=== PATIENT | female | born 1995 | race Caucasian/White ===

== ENCOUNTER 2019-01-16 22:44 | Inpatient (IN) | payer SELFPAY ==
[2019-01-17 01:04] LABS: Absolute Lymphocytes (CBC) 2.1 K/uL (0.7-4.9); Absolute Monocytes 0.9 K/uL (0.1-1.3); Absolute Neutrophil 12.4 K/uL (1.8-8.0); Basophils % 0.3 % (0-1.3); Eosinophils % 0.5 % (0-4.4); Hematocrit 37.2 % (36.0-45.0); Lymphocytes % 13.6 % (15.3-44.8); MPV 8.3 fL (7.6-11.3); RBC Red Blood Cell Count 4.14 M/uL (3.86-4.86)
[2019-01-17] MEDS ORDERED: NA CHLORIDE 0.9% 1,000 ML ONE ×2 (01:09→06:15)
[2019-01-17] MEDS ORDERED: FAMOTIDINE 20 MG/2 ML VIAL IV ONE (01:09)
[2019-01-17 01:11] LABS: ALT/SGPT 12 U/L (12-78); AST/SGOT 12 U/L (15-37); Albumin 3.2 g/dL (3.4-5.0); Alkaline Phosphatase 108 U/L (45-117); BUN Blood Urea Nitrogen 22 mg/dL (7-18); Bicarbonate 28 mmol/L (21-32); Bilirubin Direct 0.1 mg/dL (0-0.2); Bilirubin Total 0.5 mg/dL (0.2-1.0); Glucose Level 78 mg/dL (74-106); Lipase 61 U/L (73-393); Potassium 3.9 mmol/L (3.5-5.1); Protein, Total 8.1 g/dL (6.4-8.2); Sodium Level 136 mmol/L (136-145)
[2019-01-17 03:03] LABS: Urine Blood 2+ (NEG); Urine Glucose TRACE (NEG); Urine Protein 2+ (NEG); Urine Specific Gravity >1.030 (1.005-1.030); Urine pH 5.5 (5.0-7.0)
[2019-01-17 03:37] LABS: Urine Mucus 4+ /HPF (NONE SEEN)
[2019-01-17 03:38] LABS: Urine Bacteria <20 /HPF (<20); Urine Culture Reflex Order REFLEXED
[2019-01-17] MEDS ORDERED: FENTANYL CITR 100 MCG/2 ML ONE (04:27)
--- NOTE | 2019-01-17 05:25 | EDPHYS ---
Physician Documentation [facility] Name: Patti Crawford Age: 23 yrs Sex: Female : 1995 Arrival Date: 01/16/2019 Time: 22:47 Bed 17 Private MD: ED Physician Claudio Schmidt HPI: 01/17 05:17 This 23 yrs old Female presents to ER via Ambulatory with complaints of gs Abdominal Pain - burning sensation. 05:17 The patient presents with abdominal pain in the upper abdomen. Onset: The gs symptoms/episode began/occurred 5 day(s) ago. Associated signs and symptoms: Pertinent positives: nausea and vomiting. Associated signs and symptoms: Pertinent negatives: diarrhea. The symptoms are described as crampy. Modifying factors: The symptoms are alleviated by nothing, the symptoms are aggravated by nothing. Severity of pain: At its worst the pain was severe in the emergency department the pain is unchanged. The patient has not experienced similar symptoms in the past. The patient has not recently seen a physician. 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 - Social history:: Smoking status: Patient uses tobacco products, smokes one-half pack cigarettes per day, smokes one pack cigarettes per day. - Ebola Screening: : Patient negative for fever greater than or equal to 101.5 degrees Fahrenheit, and additional compatible Ebola Virus Disease symptoms. ROS: 01/17 05:17 Constitutional: Negative for fever. gs All other systems are negative. Exam: 05:17 Head/Face: Normocephalic, atraumatic. Eyes: Pupils equal round and reactive to light, gs extra-ocular motions intact. Lids and lashes normal. Conjunctiva and sclera are non-icteric and not injected. Cornea within normal limits. Periorbital areas with no swelling, redness, or edema. ENT: Nares patent. No nasal discharge, no septal abnormalities noted. Tympanic membranes are normal and external auditory canals are clear. Oropharynx with no redness, swelling, or masses, exudates, or evidence of obstruction, uvula midline. Mucous membranes moist. Neck: Trachea midline, no thyromegaly or masses palpated, and no cervical lymphadenopathy. Supple, full range of motion without nuchal rigidity, or vertebral point tenderness. No Meningismus. Chest/axilla: Normal chest wall appearance and motion. Nontender with no deformity. No lesions are appreciated. 05:17 Respiratory: Lungs have equal breath sounds bilaterally, clear to auscultation and percussion. No rales, rhonchi or wheezes noted. No increased work of breathing, no retractions or nasal flaring. Back: No spinal tenderness. No costovertebral tenderness. Full range of motion. Skin: Warm, dry with normal turgor. Normal color with no rashes, no lesions, and no evidence of cellulitis. MS/ Extremity: Pulses equal, no cyanosis. Neurovascular intact. Full, normal range of motion. Neuro: Awake and alert, GCS 15, oriented to person, place, time, and situation. Cranial nerves II-XII grossly intact. Motor strength 5/5 in all extremities. Sensory grossly intact. Cerebellar exam normal. Normal gait. 05:17 Constitutional: The patient appears alert, awake, uncomfortable. 05:17 Cardiovascular: Rate: tachycardic, Rhythm: regular, Pulses: no pulse deficits are appreciated. 05:17 Abdomen/GI: Palpation: moderate abdominal tenderness, in the right upper quadrant, left upper quadrant and right lower quadrant, rebound tenderness, is not appreciated. Vital Signs: 01/16 23:14 BP 108 / 78; Pulse 141; Resp 18; Temp 98.5(TE); Pulse Ox 98% on R/A; Pain 10/10; kl 01/17 00:00 BP 113 / 71; Pulse 106; Resp 18; Pulse Ox 100% on R/A; oe 01:00 BP 115 / 86; Pulse 98; Resp 18; Pulse Ox 100% on R/A; oe 02:00 BP 116 / 70; Pulse 108; Resp 17; Pulse Ox 100% on R/A; oe 03:00 BP 114 / 77; Pulse 115; Resp 18; Pulse Ox 99% ; oe 04:00 BP 115 / 77; Pulse 112; Resp 18; Pulse Ox 100% on R/A; oe 05:00 BP 118 / 65; Pulse 110; Resp 18; Pulse Ox 100% on R/A; oe 06:00 BP 116 / 56; Pulse 105; Resp 16; Pulse Ox 99% on R/A; oe 07:49 BP 110 / 65; Pulse 100; Resp 16; Pulse Ox 99% ; sv MDM: 00:22 Patient medically screened. 05:17 Differential diagnosis: appendicitis, bowel obstruction, gastroesophageal reflux gs disease, non-specific abd pain. Data reviewed: vital signs, nurses notes. Counseling: I had a detailed discussion with the patient and/or guardian regarding: the historical points, exam findings, and any diagnostic results supporting the discharge/admit diagnosis, lab results, radiology results, the need for further work-up and treatment in the hospital. Response to treatment: the patient's symptoms have mildly improved after treatment, and as a result, I will admit patient. 01/17 00:31 Order name: Urine Microscopic Only 01/17 00:31 Order name: Basic Metabolic Panel 01/17 00:31 Order name: CBC with Diff 01/17 00:31 Order name: Hepatic Function 01/17 00:31 Order name: Lipase 01/17 01:06 Order name: CBC with Automated Diff; Complete Time: 02:53 EDUT 01/17 01:12 Order name: Basic Metabolic Panel; Complete Time: 02:53 EDUT 01/17 01:12 Order name: Liver (Hepatic) Function; Complete Time: 02:53 EDUT 01/17 01:12 Order name: Lipase; Complete Time: 02:53 EDUT 01/17 02:36 Order name: Urine Dipstick--Ancillary (enter results) il 01/17 02:36 Order name: Urine --Ancillary (enter results) il 01/17 03:04 Order name: Urine --Ancillary; Complete Time: 03:41 EDUT 01/17 03:04 Order name: Urine Dipstick-Ancillary; Complete Time: 03:41 EDUT 01/17 03:39 Order name: Urine Microscopic Only; Complete Time: 03:41 EDUT 01/17 00:31 Order name: Urine Test (obtain specimen); Complete Time: 03:12 01/17 00:31 Order name: Urine Dipstick-Ancillary (obtain specimen); Complete Time: 03:12 01/17 00:31 Order name: IV Saline Lock; Complete Time: 00:55 01/17 00:31 Order name: Labs collected and sent; Complete Time: 00:56 01/17 00:31 Order name: CT Abd/Pelvis - W/Contrast 01/17 07:21 Order name: Lactate EDMS Administered Medications: 00:50 Drug: Pepcid 20 mg Route: IVP; Site: right antecubital; cc3 01:30 Follow up: Response: No adverse reaction cc3 00:55 Drug: NS 0.9% 1000 ml Route: IV; Rate: 1 bolus; Site: right antecubital; cc3 02:00 Follow up: Response: No adverse reaction; IV Status: Completed infusion; IV Intake: cc3 1000ml 04:20 Drug: fentaNYL (PF) 50 mcg Route: IVP; Site: right antecubital; cc3 04:30 Follow up: Response: No adverse reaction cc3 06:05 Drug: NS 0.9% 1000 ml Route: IV; Rate: 150 ml/hr; Site: right antecubital; cc3 06:30 Follow up: Response: No adverse reaction; IV Status: Infusion continued upon admission cc3 06:07 Drug: cefOXitin 1 grams Route: IVPB; Infused Over: 30 mins; Site: right antecubital; cc3 06:30 Follow up: Response: No adverse reaction; IV Status: Completed infusion cc3 06:13 Not Given (Physician Discretion): fentaNYL (PF) 50 mcg IVP once jr8 06:20 Drug: Zofran 4 mg Route: IVP; Site: right antecubital; cc3 07:16 Follow up: Response: No adverse reaction cc3 06:23 Drug: Demerol 25 mg Route: IVP; Site: right antecubital; cc3 06:30 Follow up: Response: No adverse reaction; Pain is decreased cc3 Disposition: 01/17/19 05:24 Hospitalization ordered by Remy Shields for Inpatient Admission. Preliminary diagnosis is Other and unspecified noninfective gastroenteritis and colitis. - Bed requested for Telemetry/MedSurg (Inpatient). - Status is Inpatient Admission. sv - Condition is Stable. - Problem is new. - Symptoms have improved. UTI on Admission? No Signatures: Dispatcher [employer] EDUT Shanthi Horner RN RN kl Verde, Stephanie, RN RN sv Roszak, Josh, PA PA jr8 Claudio Schmidt MD MD Ginger Herron cc3 Corrections: (The following items were deleted from the chart) 06:34 05:24 Hospitalization Ordered by Remy Shields MD for Inpatient Admission. Preliminary kl diagnosis is Other and unspecified noninfective gastroenteritis and colitis. Bed requested for Telemetry/MedSurg (Inpatient). Status is Inpatient Admission. Condition is Stable. Problem is new. Symptoms have improved. UTI on Admission? No. gs 07:56 06:34 01/17/2019 05:24 Hospitalization Ordered by Remy Shields MD for Inpatient sv Admission. Preliminary diagnosis is Other and unspecified noninfective gastroenteritis and colitis. Bed requested for Telemetry/MedSurg (Inpatient). Status is Inpatient Admission. Condition is Stable. Problem is new. Symptoms have improved. UTI on Admission? No. kl
--- NOTE | 2019-01-17 05:25 | ER ---
Nurse's Notes [facility] Name: Patti Crawford Age: 23 yrs Sex: Female : 1995 Arrival Date: 01/16/2019 Time: 22:47 Bed 17 Private MD: Diagnosis: Other and unspecified noninfective gastroenteritis and colitis Presentation: 01/16 23:08 Presenting complaint: Patient states: right side pain x 5 days advanced center of abdomen accompanied by nausea and vomiting reports unable to tolerate po x 2 days also reports abdominal swelling. Transition of care: patient was not received from another setting of care. Onset of symptoms was January 11, 2019. Risk Assessment: Do you want to hurt yourself or someone else? Patient reports no desire to harm self or others. Initial Sepsis Screen: Does the patient meet any 2 criteria? No. Patient's initial sepsis screen is negative. Care prior to arrival: Medication(s) given: tylenol w/ codeine and vicodin. 23:08 Method Of Arrival: Ambulatory 23:08 Acuity: HEYDI 4 23:08 Acuity: HEYDI 3 01/17 00:09 Initial Sepsis Screen: Does the patient have a suspected source of infection? No. cc3 Patient's initial sepsis screen is negative. Triage Assessment: 01/16 23:13 General: Appears distressed, uncomfortable, Behavior is cooperative. Pain: Complains of pain in abdomen diffusely Pain currently is 10 out of 10 on a pain scale. GI: Reports lower abdominal pain, upper abdominal pain, anorexia, bloating, intolerance of fluids, intolerance of food, nausea, normal bowel habits. 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 - Social history:: Smoking status: Patient uses tobacco products, smokes one-half pack cigarettes per day, smokes one pack cigarettes per day. - Ebola Screening: : Patient negative for fever greater than or equal to 101.5 degrees Fahrenheit, and additional compatible Ebola Virus Disease symptoms. Screenin/22 01:00 Abuse screen: Denies threats or abuse. Denies injuries from another. Nutritional cc3 screening: No deficits noted. Tuberculosis screening: No symptoms or risk factors identified. Fall Risk Ambulatory Aid- None/Bed Rest/Nurse Assist (0 pts). Gait- Normal/Bed Rest/Wheelchair (0 pts) Mental Status- Oriented to own ability (0 pts). Assessment: 00:09 General: see triage assessment. cc3 00:09 GI: Bowel sounds present X 4 quads. Abd is soft Abdomen is tender to palpation X 4 cc3 quads. 01:18 Reassessment: Patient appears in no apparent distress at this time. Patient and/or cc3 family updated on plan of care and expected duration. Pain level reassessed. Patient is alert, oriented x 3, equal unlabored respirations, skin warm/dry/pink. 02:40 Reassessment: Patient appears in no apparent distress at this time. Patient and/or cc3 family updated on plan of care and expected duration. Pain level reassessed. Patient is alert, oriented x 3, equal unlabored respirations, skin warm/dry/pink. Patient came back from CT scan department. 03:18 Reassessment: Patient appears in no apparent distress at this time. Patient and/or cc3 family updated on plan of care and expected duration. Pain level reassessed. Patient is alert, oriented x 3, equal unlabored respirations, skin warm/dry/pink. 04:20 Reassessment: Patient appears in no apparent distress at this time. Patient and/or cc3 family updated on plan of care and expected duration. Pain level reassessed. Patient is alert, oriented x 3, equal unlabored respirations, skin warm/dry/pink. 05:15 Reassessment: Patient appears in no apparent distress at this time. Patient and/or cc3 family updated on plan of care and expected duration. Pain level reassessed. Patient is alert, oriented x 3, equal unlabored respirations, skin warm/dry/pink. 06:17 Reassessment: Patient appears in no apparent distress at this time. Patient and/or cc3 family updated on plan of care and expected duration. Pain level reassessed. Patient is alert, oriented x 3, equal unlabored respirations, skin warm/dry/pink. Vital Signs: 01/16 23:14 BP 108 / 78; Pulse 141; Resp 18; Temp 98.5(TE); Pulse Ox 98% on R/A; Pain 10/10; kl 01/17 00:00 BP 113 / 71; Pulse 106; Resp 18; Pulse Ox 100% on R/A; oe 01:00 BP 115 / 86; Pulse 98; Resp 18; Pulse Ox 100% on R/A; oe 02:00 BP 116 / 70; Pulse 108; Resp 17; Pulse Ox 100% on R/A; oe 03:00 BP 114 / 77; Pulse 115; Resp 18; Pulse Ox 99% ; oe 04:00 BP 115 / 77; Pulse 112; Resp 18; Pulse Ox 100% on R/A; oe 05:00 BP 118 / 65; Pulse 110; Resp 18; Pulse Ox 100% on R/A; oe 06:00 BP 116 / 56; Pulse 105; Resp 16; Pulse Ox 99% on R/A; oe 07:49 BP 110 / 65; Pulse 100; Resp 16; Pulse Ox 99% ; sv ED Course: 01/16 22:47 Patient arrived in ED. am2 23:12 Triage completed. kl 23:41 Claudio Schmidt MD is Attending Physician. 01/17 00:09 Ginger Herron is Primary Nurse. cc3 00:09 Arm band placed on right wrist. Patient notified of wait time. cc3 00:09 Patient has correct armband on for positive identification. Placed in gown. Bed in low cc3 position. Call light in reach. Side rails up X 1. manufacturing engineer supervisor on. Pulse ox on. NIBP on. 01:05 Inserted saline lock: 22 gauge in right antecubital area, using aseptic technique. ag4 02:18 Radiology exam delayed due to test not completed at this time. 02:53 CT completed. Patient tolerated procedure well. Patient moved to CT via stretcher. Patient moved back from CT. 05:24 Remy Shields MD is Hospitalizing Provider. 07:00 Report given to ILDA Chilel. cc3 07:48 No provider procedures requiring assistance completed. Patient admitted, IV remains in sv place. intact. Administered Medications: 00:50 Drug: Pepcid 20 mg Route: IVP; Site: right antecubital; cc3 01:30 Follow up: Response: No adverse reaction cc3 00:55 Drug: NS 0.9% 1000 ml Route: IV; Rate: 1 bolus; Site: right antecubital; cc3 02:00 Follow up: Response: No adverse reaction; IV Status: Completed infusion; IV Intake: cc3 1000ml 04:20 Drug: fentaNYL (PF) 50 mcg Route: IVP; Site: right antecubital; cc3 04:30 Follow up: Response: No adverse reaction cc3 06:05 Drug: NS 0.9% 1000 ml Route: IV; Rate: 150 ml/hr; Site: right antecubital; cc3 06:30 Follow up: Response: No adverse reaction; IV Status: Infusion continued upon admission cc3 06:07 Drug: cefOXitin 1 grams Route: IVPB; Infused Over: 30 mins; Site: right antecubital; cc3 06:30 Follow up: Response: No adverse reaction; IV Status: Completed infusion cc3 06:13 Not Given (Physician Discretion): fentaNYL (PF) 50 mcg IVP once jr8 06:20 Drug: Zofran 4 mg Route: IVP; Site: right antecubital; cc3 07:16 Follow up: Response: No adverse reaction cc3 06:23 Drug: Demerol 25 mg Route: IVP; Site: right antecubital; cc3 06:30 Follow up: Response: No adverse reaction; Pain is decreased cc3 Intake: 02:00 IV: 1000ml; Total: 1000ml. cc3 Outcome: 05:24 Decision to Hospitalize by Provider. 07:48 Admitted to Med/surg accompanied by tech, via wheelchair, room 228, with chart, Report sv called to Stan GONSALES 07:48 Condition: stable 07:48 Instructed on the need for admit. 07:56 Patient left the ED. sv Signatures: Shanthi Horner RN Ranjana Thomas RN RN sv Hagler, Ervin eh Espinosa, Orlando oe Moreno, Amanda am2 Claudio Schmidt MD MD gs Cordel, Charlene cc3 Guzman, Adan ag4 Roszak, Josh PA jr8
--- NOTE | 2019-01-17 06:11 | P.HP ---
Certification for Inpatient Patient admitted to: Inpatient With expected LOS: >2 Midnights Practitioner: I am a practitioner with admitting privileges, knowledge of patient current condition, hospital course, and medical plan of care. Services: Services provided to patient in accordance with Admission requirements found in Title 42 Section 412.3 of the Code of Federal Regulations Patient History Date of Service: 01/17/19 Reason for admission: acute enterities History of Present Illness: Ms Greenberg is a 23 years old woman, with pretty benign past medical history, who start about 6 days ago with diffuse abdominal pain, associated with nausea and vomiting. She denied diarrhea. She has had fever in the last couple of days, but did not measure it. Currently her abdominal pain is periumbilical, 10/10 of intensity, constant. Lab work remarkable for leukocytosis 15.6K, CT abdomen and pelvis, remarkable for gneralized small bowel wall inflammation, consistent with enteritis. Her mesenteric lymph nodes are also inflamed suspected for infection precess. At arrival she was not febrile, but tachycardic. Allergies No Known Drug Allergies Allergy (Unverified 03/30/15 22:07) Unknown No Known Allergies Allergy (Uncoded 09/05/17 21:00) Unknown Home medications list reviewed: Yes - Past Medical/Surgical History Past Medical History: Reviewed- Non-Contributory Past Surgical History: Reviewed- Non-Contributory - Family History Family History: Reviewed- Non-Contributory - Social History Smoking Status: Current every day smoker Counseled patient to stop smoking for: less than 10 minutes Alcohol use: Yes CD- Drugs: Yes Caffeine use: Yes Place of Residence: Home Review of Systems 10-point ROS is otherwise unremarkable Physical Examination - Physical Exam General: Alert, In no apparent distress HEENT: Atraumatic, PERRLA, Mucous membr. moist/pink, EOMI, Sclerae nonicteric Neck: Supple, 2+ carotid pulse no bruit, No LAD, Without JVD or thyroid abnormality Respiratory: Clear to auscultation bilaterally, Normal air movement Cardiovascular: Regular rate/rhythm, Normal S1 S2 Gastrointestinal: Hypoactive, Distended, Tenderness (diffuse tender to palpation ) Musculoskeletal: No tenderness Integumentary: No rashes Neurological: Normal speech, Normal strength at 5/5 x4 extr, Normal tone, Normal affect Lymphatics: No axilla or inguinal lymphadenopathy - Studies Laboratory Data (last 24 hrs) 01/17/19 00:35: WBC 15.6 H, Hgb 12.7, Hct 37.2, Plt Count 415 H 01/17/19 00:35: Sodium 136, Potassium 3.9, BUN 22 H, Creatinine 0.74, Glucose 78 , Total Bilirubin 0.5, AST 12 L, ALT 12, Alkaline Phosphatase 108, Lipase 61 L Assessment and Plan - Problems (Diagnosis) (1) Enteritis Current Visit: Yes Status: Acute (2) UTI (urinary tract infection) Current Visit: Yes Status: Acute Qualifiers: Urinary tract infection type: acute cystitis Hematuria presence: without hematuria Qualified Code(s): N30.00 - Acute cystitis without hematuria - Plan The patient will be admitted to the hospital due to acute enteritis. Her UA was abnormal consistent with UTI as well. Will start empiric treatment with IV cipro and flagyl. Blood cultures in process. - Advance Directives Does patient have a Living Will: No Does patient have a Durable POA for Healthcare: No - Code Status/Comfort Care Code Status Assessed: Yes Code Status: Full Code
[2019-01-17] MEDS ORDERED: CEFOXITIN/SWI 1gm 1 GM/10 ML SYR ONE (06:15)
[2019-01-17] MEDS ORDERED: MEPERIDINE HCL 25 MG/0.5 ML ONE (06:30)
[2019-01-17] MEDS ORDERED: ONDANSETRON 4 MG/2 ML VIAL ONE (06:30)
[2019-01-17] MEDS ORDERED: ACETAMINOPHEN 500 MG TAB PO PRN (08:06)
[2019-01-17] MEDS: NA CHLORIDE 0.9% 1,000 ML IV SCH ×3 (08:06→23:06)
[2019-01-17] MEDS ORDERED: ONDANSETRON 4 MG/2 ML VIAL IV PRN (08:06)
[2019-01-17 08:08] VITALS: BMI 22.4
[2019-01-17] MEDS: ENOXAPARIN 40 MG/0.4 ML SQ SCH (09:00)
[2019-01-17] MEDS: METRONIDAZOLE 500mg IVPB 500 MG/100 ML BAG IV SCH ×2 (09:22→16:17)
[2019-01-17] MEDS: CIPROFLOXACIN 400mg IV 400 MG/200 ML BAG IV SCH ×2 (09:22→20:14)
[2019-01-17] MEDS: MORPHINE 2 MG/ML SYR IV PRN ×3 (09:23→22:05)
--- NOTE | 2019-01-17 16:02 | P.PN ---
Subjective Date of Service: 01/17/19 Primary Care Provider: None Chief Complaint: acute enterities Subjective: Other (Still with abdominal pain but pain improved) Physical Examination - Vital Signs Temperature: 100.3 F Blood Pressure: 104/59 Pulse: 95 Respirations: 17 Pulse Ox (%): 96 - Physical Exam General: Alert, In no apparent distress, Cooperative HEENT: Atraumatic Neck: Supple Respiratory: Clear to auscultation bilaterally, Normal air movement Cardiovascular: Normal pulses, Regular rate/rhythm Gastrointestinal: Hypoactive, Non-distended, No masses, No rebound, No guarding , Tenderness (Tenderness throughout) Musculoskeletal: No erythema, No tenderness, No warmth Integumentary: No tenderness/swelling, No erythema, No warmth, No cyanosis Neurological: Normal speech, Normal strength at 5/5 x4 extr, Normal tone, Normal affect - Studies Laboratory Data (last 24 hrs) 01/17/19 00:35: WBC 15.6 H, Hgb 12.7, Hct 37.2, Plt Count 415 H 01/17/19 00:35: Sodium 136, Potassium 3.9, BUN 22 H, Creatinine 0.74, Glucose 78 , Total Bilirubin 0.5, AST 12 L, ALT 12, Alkaline Phosphatase 108, Lipase 61 L Medications List Reviewed: Yes Assessment & Plan Discharge Plan: Home Plan to discharge in: 48 Hours Physician Review Additional Text: Impression: Nausea, vomiting, abdominal pain with diarrhea secondary to Enteritis complicated with UTI Dehydration Plan: Continue with IV fluids and antibiotic therapy. Will provide clear liquid diet. Will advance diet slowly. Will continue to monitor closely. Serial examinations to continue. Recheck lab in the morning. Blood and urine culture obtained. Time Spent Managing Pts Care (In Minutes): 55
[2019-01-17] MEDS ORDERED: IBUPROFEN 400 MG TAB PO PRN (16:34)
--- NOTE | 2019-01-17 20:40 | RAD REPORT ---
EXAM DESCRIPTION: CT - Abdomen Pelvis W Contrast - 01/17/2019 5:39 am CLINICAL HISTORY: 23-year-old female with right-sided abdominal pain, distended abdomen with nausea COMPARISON: None. TECHNIQUE: Axial CT images of the abdomen and pelvis was performed following the administration of intravenous c ontrast. Sagittal and coronal reconstructed images were then performed. The CT study is performed acc ording to ALARA (as low as reasonably achievable) or ALARA/IMAGE GENTLY, with automatic adjustment of mA and/or kV according to patient size. FINDINGS: Lung bases: The lung bases are clear. There is minimal bibasilar atelectasis and/or fibrosis. Liver: The liver is normal in size and configuration. No focal hepatic abnormalities are identified. Liver attenuation is within normal limits. Spleen: The spleen is normal in size, configuration and attenuation. Gallbladder and bile duct: The gallbladder is well distended and unremarkable. There is no biliary du ctal dilatation. Pancreas: The pancreas is grossly normal in size and configuration. Adrenal Glands: The adrenal glands are normal in size and configuration. Kidneys: The kidneys are normal in size and configuration. There is no evidence of hydronephrosis. Th ere is no evidence of nephrolithiasis. There appear to be a couple of very tiny renal hypodensities p articularly in the right kidney likely representing incidental benign appearing renal cysts. Stomach: The stomach is grossly normal. There is not definite hiatal hernia. Bowel: There appears to be bowel wall thickening involving small bowel loops in the left hemiabdomen and there is inner loop fluid and mesenteric edema. There is a small amount of free fluid in the pelv is. These findings are nonspecific but raise concern for an underlying infectious or inflammatory pro cess. Enteritis could result in this appearance. The colon is normal in caliber and contour and conta ins scattered air and fecal residue. Overall evaluation of the bowel is limited without oral contrast . Appendix: The appendix is not clearly visualized on this examination. There is no CT evidence to sugg est acute appendicitis. Free air: There is no evidence of free air. Free fluid: As described above. There is a small amount of free fluid in the pelvis as well as interl oop small bowel fluid and mesenteric edema. Vasculature: The aorta is normal in caliber and contour. The inferior vena cava is grossly unremarkab le. Lymphadenopathy: There are prominent mesenteric lymph nodes likely reactive inflammatory in nature. Bladder: The bladder is incompletely distended. There appears to be diffuse bladder wall thickening b ut evaluation is limited due to incomplete distention of the bladder. Reproductive: The uterus is grossly within normal limits. An intrauterine device is noted in grossly satisfactory position. Bones: No acute osseous abnormalities are identified. Soft tissues: No focal soft tissue abnormalities are identified. IMPRESSION: 1. There appears to be bowel wall thickening involving small bowel loops in the left hem iabdomen with associated interloop fluid and mesenteric edema. There is also a small amount of free f luid in the pelvis. These findings are nonspecific but raise concern for an underlying infectious or inflammatory process. Enteritis could result in this appearance. 2. Prominent mesenteric lymph nodes likely reactive inflammatory in nature. 3. Other benign incidental findings as described above. Electronically signed by Gwendolyn Parry DO 01/17/2019 4:11 AM EMERGENCY ROOM NURSE Due to temporary technical issues with the PACS/Fluency reporting system, reports are being signed by the in house radiologist as a courtesy to ensure prompt reporting. The interpreting radiologist is f ully responsible for the content of the report.
[2019-01-18] MEDS: METRONIDAZOLE 500mg IVPB 500 MG/100 ML BAG IV SCH ×3 (00:03→17:00)
[2019-01-18] MEDS: MORPHINE 2 MG/ML SYR IV PRN ×5 (02:06→20:53)
[2019-01-18] MEDS: NA CHLORIDE 0.9% 1,000 ML IV SCH ×4 (04:42→23:06)
[2019-01-18 04:50] LABS: Absolute Lymphocytes (CBC) 1.9 K/uL (0.7-4.9); Absolute Monocytes 0.9 K/uL (0.1-1.3); Absolute Neutrophil 8.2 K/uL (1.8-8.0); Basophils % 0.3 % (0-1.3); Eosinophils % 0.9 % (0-4.4); Hematocrit 32.5 % (36.0-45.0); Lymphocytes % 17.2 % (15.3-44.8); MPV 7.7 fL (7.6-11.3); Monocytes % 7.7 % (3.3-12.3); RBC Red Blood Cell Count 3.64 M/uL (3.86-4.86)
[2019-01-18 05:00] LABS: BUN Blood Urea Nitrogen 11 mg/dL (7-18); Bicarbonate 25 mmol/L (21-32); Glucose Level 77 mg/dL (74-106); Magnesium 1.8 mg/dL (1.8-2.4); Potassium 3.4 mmol/L (3.5-5.1); Sodium Level 137 mmol/L (136-145)
[2019-01-18] MEDS: KCL 20 MEQ/100 mL IVPB 20 MEQ/100 ML BAG IV SCH ×2 (05:14→08:00)
[2019-01-18] MEDS: CIPROFLOXACIN 400mg IV 400 MG/200 ML BAG IV SCH ×2 (08:28→20:52)
[2019-01-18] MEDS: ENOXAPARIN 40 MG/0.4 ML SQ SCH (08:28)
--- NOTE | 2019-01-18 10:24 | P.PN ---
Subjective Date of Service: 01/18/19 Primary Care Provider: None Chief Complaint: acute enterities Subjective: Other (Slow improvement noted. Less nausea today. Less pain as well ) Physical Examination - Vital Signs Temperature: 97 F Blood Pressure: 104/52 Pulse: 76 Respirations: 20 Pulse Ox (%): 96 - Physical Exam General: Alert, In no apparent distress, Oriented x3, Cooperative HEENT: Atraumatic Neck: Supple Respiratory: Clear to auscultation bilaterally, Normal air movement Cardiovascular: Normal pulses, Regular rate/rhythm Gastrointestinal: Hypoactive, Non-distended, No masses, No rebound, No guarding , Tenderness (Less pain to the abdomen noted) Musculoskeletal: No erythema, No tenderness, No warmth Integumentary: No tenderness/swelling, No erythema, No warmth, No cyanosis Neurological: Normal speech, Normal strength at 5/5 x4 extr, Normal tone, Normal affect - Studies Medications List Reviewed: Yes Assessment & Plan Discharge Plan: Home Plan to discharge in: 48 Hours Physician Review Additional Text: Impression: Nausea, vomiting, abdominal pain with diarrhea secondary to Enteritis complicated with UTI Dehydration Plan: Patient slightly improved. Continue with IV fluids and antibiotic therapy. Urine culture pending. Blood cultures negative. Will slowly advance her diet. Case discussed with surgery. Encourage ambulation. Encourage incentive spirometer. If improved and tolerating diet later, will advance her diet. Anticipate discharge in the next 24 to 48 hr. Continue to reassess. Time Spent Managing Pts Care (In Minutes): 55
[2019-01-18] MEDS ORDERED: MAGNESIUM SULFATE 1 gm IVPB 1 GM/100 ML BAG IV ONE (12:00)
--- NOTE | 2019-01-18 12:56 | PREOPCON ---
Date of Consultation: 01/18/2019 Reason: Abdominal pain. History Of Present Illness: The patient is a 23-year-old female, who states that for about the last week, she has had diffuse abdominal pain, crampy in nature, associated with nausea and vomiting. No diarrhea, low grade temperature subjectively. No sore throat, runny nose, cough, headaches, or dizzi ness. No chest pain. No blood in her stools. No dysuria or hematuria. Review of Systems: Otherwise unremarkable. Past Medical History: Negative. Past Surgical History: Negative. Allergies: NO ALLERGIES. Social History: She does smoke, was counseled. She drinks alcohol occasionally. Family History: Noncontributory. Physical Examination: Vital Signs: Stable. She is afebrile. General: She is awake, alert, orient x3. Head and Neck: Cranial nerves 2 through 12 grossly within normal limits. No neck masses. No JVD. Throat clear. Neck is supple. Chest: Clear. Heart: S1, S2. Abdomen: Soft, slightly distended. Hypoactive bowel sounds. No tenderness. No rebound, rigidity, or guarding. Extremities: Adequately perfused. Nontender. Neuro: Nonfocal. Laboratory Data: White count on admission was 15.6, currently is 11.3 with a slight left shift. Neelima jaimee revealed she has a little bit of hypokalemia, otherwise essentially unremarkable. Lactic acid and procalcitonin are normal. She had a CT of the abdomen and pelvis, which shows small bowel thick ening involving the small bowel loops in the left santa-abdomen with an associated interloop fluid and mesenteric edema, some small amount of free fluid in the pelvis. The findings are nonspecific, but raise concern for underlying infectious or inflammatory process, enteritis could result in this appea joo, and there is some prominent lymph node secondary to the inflammatory changes and no other sign ificant finding. Assessment: A 23-year-old female with likely gastroenteritis ileus and dehydration, recommendation a nd empiric antibiotics and IV fluids, encourage ambulation, clear liquids diet. She does not have a surgical abdomen, although a GI consultation may be helpful if the patient does not improve soon. We will follow the patient while in the hospital. The patient may also benefit from abdominal x-ray sh ould the distention not improve within the next 24 hours. Please note, the case was discussed with Dr. Resendez. YUDY/ERWIN Voice ID: [id number] Report ID: [id number]
[2019-01-19] MEDS: METRONIDAZOLE 500mg IVPB 500 MG/100 ML BAG IV SCH ×2 (00:49→08:22)
[2019-01-19] MEDS: NA CHLORIDE 0.9% 1,000 ML IV SCH (04:09)
[2019-01-19] MEDS: MORPHINE 2 MG/ML SYR IV PRN ×2 (04:09→09:07)
[2019-01-19 04:21] LABS: Absolute Lymphocytes (CBC) 2.2 K/uL (0.7-4.9); Absolute Monocytes 0.7 K/uL (0.1-1.3); Absolute Neutrophil 5.2 K/uL (1.8-8.0); Basophils % 0.4 % (0-1.3); Eosinophils % 2.4 % (0-4.4); Hematocrit 31.4 % (36.0-45.0); Lymphocytes % 26.8 % (15.3-44.8); MPV 7.9 fL (7.6-11.3); RBC Red Blood Cell Count 3.49 M/uL (3.86-4.86)
[2019-01-19 04:42] LABS: BUN Blood Urea Nitrogen 6 mg/dL (7-18); Bicarbonate 27 mmol/L (21-32); Glucose Level 110 mg/dL (74-106); Magnesium 2.1 mg/dL (1.8-2.4); Potassium 3.8 mmol/L (3.5-5.1); Sodium Level 141 mmol/L (136-145)
[2019-01-19] MEDS ORDERED: KCL 20 MEQ/100 mL IVPB 20 MEQ/100 ML BAG IV SCH (06:00)
[2019-01-19] MEDS: CIPROFLOXACIN 400mg IV 400 MG/200 ML BAG IV SCH (08:22)
[2019-01-19] MEDS: ENOXAPARIN 40 MG/0.4 ML SQ SCH (08:23)
--- NOTE | 2019-01-19 09:04 | P.DS ---
Admission Date: 01/17/19 Discharge Date: 01/19/19 Primary Care Provider: None Disposition: ROUTINE DISCHARGE Discharge Condition: GOOD Reason for Admission: acute enterities Consultations: Surgery-Dr. Moore Procedures: CT scan: COMPARISON: None. TECHNIQUE: Axial CT images of the abdomen and pelvis was performed following the administration of intravenous contrast. Sagittal and coronal reconstructed images were then performed. The CT study is performed according to ALARA (as low as reasonably achievable) or ALARA/IMAGE GENTLY, with automatic adjustment of mA and/or kV according to patient size. FINDINGS: Lung bases: The lung bases are clear. There is minimal bibasilar atelectasis and /or fibrosis. Liver: The liver is normal in size and configuration. No focal hepatic abnormalities are identified. Liver attenuation is within normal limits. Spleen: The spleen is normal in size, configuration and attenuation. Gallbladder and bile duct: The gallbladder is well distended and unremarkable. There is no biliary ductal dilatation. Pancreas: The pancreas is grossly normal in size and configuration. Adrenal Glands: The adrenal glands are normal in size and configuration. Kidneys: The kidneys are normal in size and configuration. There is no evidence of hydronephrosis. There is no evidence of nephrolithiasis. There appear to be a couple of very tiny renal hypodensities particularly in the right kidney likely representing incidental benign appearing renal cysts. Stomach: The stomach is grossly normal. There is not definite hiatal hernia. Bowel: There appears to be bowel wall thickening involving small bowel loops in the left hemiabdomen and there is inner loop fluid and mesenteric edema. There is a small amount of free fluid in the pelvis. These findings are nonspecific but raise concern for an underlying infectious or inflammatory process. Enteritis could result in this appearance. The colon is normal in caliber and contour and contains scattered air and fecal residue. Overall evaluation of the bowel is limited without oral contrast. Appendix: The appendix is not clearly visualized on this examination. There is no CT evidence to suggest acute appendicitis. Free air: There is no evidence of free air. Free fluid: As described above. There is a small amount of free fluid in the pelvis as well as interloop small bowel fluid and mesenteric edema. Vasculature: The aorta is normal in caliber and contour. The inferior vena cava is grossly unremarkable. Lymphadenopathy: There are prominent mesenteric lymph nodes likely reactive inflammatory in nature. Bladder: The bladder is incompletely distended. There appears to be diffuse bladder wall thickening but evaluation is limited due to incomplete distention of the bladder. Reproductive: The uterus is grossly within normal limits. An intrauterine device is noted in grossly satisfactory position. Bones: No acute osseous abnormalities are identified. Soft tissues: No focal soft tissue abnormalities are identified. IMPRESSION: 1. There appears to be bowel wall thickening involving small bowel loops in the left hemiabdomen with associated interloop fluid and mesenteric edema. There is also a small amount of free fluid in the pelvis. These findings are nonspecific but raise concern for an underlying infectious or inflammatory process. Enteritis could result in this appearance. 2. Prominent mesenteric lymph nodes likely reactive inflammatory in nature. 3. Other benign incidental findings as described above. Medical Problem List: Nausea, vomiting, abdominal pain with diarrhea secondary to Enteritis complicated with UTI Dehydration Brief History of Present Illness: 23-year-old female presented to emergency room with nausea, vomiting and right upper quadrant pain. Patient also reported some diarrhea. Patient was seen and evaluated in the emergency room. CT scan revealed enteritis. She also had a possible UTI. Patient was admitted for treatment. Hospital Course: Patient presented with nausea, vomiting, diarrhea and right upper quadrant pain secondary to enteritis. Patient was given IV antibiotic therapy and fluids. Patient seen evaluated by surgery. No surgical intervention was required. Patient did well in the course of her stay. At discharge she is without any significant abdominal pain. At discharge she will continue with Cipro 500 mg 1 pill twice daily and Flagyl 500 mg 3 times a day for 7 days. Patient will also be provided tramadol 50 mg 1 pill 3 times a day as needed for pain. Recommend to establish care and follow up with a PCP. Patient may benefit with GI evaluation in the near future to further evaluate. Education on enteritis and UTI prevention will be provided. Vital Signs/Physical Exam: Temp Pulse Resp BP Pulse Ox 98.7 F 94 H 20 121/62 97 01/19/19 04:00 01/19/19 04:00 01/19/19 04:00 01/19/19 04:00 01/19/19 04:00 General: Alert, In no apparent distress, Oriented x3, Cooperative HEENT: Atraumatic Neck: Supple Respiratory: Clear to auscultation bilaterally, Normal air movement Cardiovascular: Normal pulses, Regular rate/rhythm Gastrointestinal: Normal bowel sounds, Soft and benign, Non-distended, No tenderness, No masses, No rebound, No guarding Musculoskeletal: No contractures, No erythema, No tenderness, No warmth Integumentary: No tenderness/swelling, No erythema, No warmth, No cyanosis Neurological: Normal speech, Normal strength at 5/5 x4 extr, Normal tone, Normal affect Laboratory Data at Discharge: WBC 8.4 K/uL (4.3-10.9) D 01/19/19 03:47 Hgb 10.8 g/dL (12.0-15.0) L 01/19/19 03:47 Hct 31.4 % (36.0-45.0) L 01/19/19 03:47 Plt Count 442 K/uL (152-406) H 01/19/19 03:47 Sodium 141 mmol/L (136-145) 01/19/19 03:47 Potassium 3.8 mmol/L (3.5-5.1) 01/19/19 03:47 BUN 6 mg/dL (7-18) L 01/19/19 03:47 Creatinine 0.52 mg/dL (0.55-1.3) L 01/19/19 03:47 Glucose 110 mg/dL (74-106) H 01/19/19 03:47 Magnesium 2.1 mg/dL (1.8-2.4) 01/19/19 03:47 Total Bilirubin 0.5 mg/dL (0.2-1.0) 01/17/19 00:35 AST 12 U/L (15-37) L 01/17/19 00:35 ALT 12 U/L (12-78) 01/17/19 00:35 Alkaline Phosphatase 108 U/L (45-117) 01/17/19 00:35 Lipase 61 U/L (73-393) L 01/17/19 00:35 Home Medications: Ciprofloxacin HCl [Cipro 500 MG Tablet] 500 mg PO BID #14 tab 01/19/19 Tramadol HCl [Ultram] 50 mg PO TID PRN #10 tablet 01/19/19 metroNIDAZOLE [Flagyl] 500 mg PO Q8H #21 tablet 01/19/19 New Medications: Ciprofloxacin HCl [Cipro 500 MG Tablet] 500 mg PO BID #14 tab metroNIDAZOLE [Flagyl] 500 mg PO Q8H #21 tablet Tramadol HCl [Ultram] 50 mg PO TID PRN #10 tablet PRN Reason: Pain Scale 2-4 (Mild) Patient Discharge Instructions: 1. Patient will need to establish care to follow up this hospitalization. 2. Patient presented with nausea, vomiting, diarrhea and right upper quadrant pain secondary to enteritis. Patient was given IV antibiotic therapy and fluids. Patient seen evaluated by surgery. No surgical intervention was required. Patient did well in the course of her stay. At discharge she is without any significant abdominal pain. At discharge she will continue with Cipro 500 mg 1 pill twice daily and Flagyl 500 mg 3 times a day for 7 days. Patient will also be provided tramadol 50 mg 1 pill 3 times a day as needed for pain. Recommend to establish care and follow up with a PCP. Patient may benefit with GI evaluation in the near future to further evaluate. Education on enteritis and UTI prevention will be provided. Diet: GI soft diet Activity: Ad tommy Time spent managing pt's care (in minutes): 55
[2019-01-19 10:25] VITALS: O2SAT 96
--- NOTE | 2019-01-19 11:39 | PN ---
Date of Progress Note: 01/19/2019 Subjective: The patient is awake, alert, tolerating a regular diet. Complaining of pain, but it is much better. Objective: Vital signs: Stable. She is afebrile. Abdomen: Benign. Laboratory Data: White count is normal now. There is no left shift. Assessment: Likely gastroenteritis. Recommendations: The patient cleared from surgical standpoint to be discharged home on Cipro and Fla gyl. She needs to follow up with GI doctor as needed. /ERWIN Voice ID: [id number] Report ID: [id number]
[2019-01-19 13:58] VITALS: BP 103/54; TEMP 98.2
== END 2019-01-19 15:45 | disposition home or self-care (01) | DRG 392 ==
LOC: ER 22:44 → ERHOLD 01-17 06:02 → 2ND 01-17 07:48
PROVIDERS: ADMIT Internal Medicine; ATTEND Family Medicine
DX: K52.9 Noninfective gastroenteritis and colitis, unspecified (principal); N30.00 Acute cystitis without hematuria; E86.0 Dehydration; E87.6 Hypokalemia; F17.200 Nicotine dependence, unspecified, uncomplicated
CPT/HCPCS: 36415; 74177; 80048; 80076; 81003; 81015; 81025; 83605; 83690; 83735; 84132; 84145; 85025; 87040; 87086; 87088; 96361; 96365; 96375; 99285; J0744; J1650; J2175; J2270; J2405; J3010; J3475; J7030; Q9967

== ENCOUNTER 2019-01-28 19:37 | Inpatient (IN) | payer SELFPAY ==
[2019-01-28 20:23] LABS: Urine Glucose NEGATIVE (NEG); Urine Specific Gravity >1.030 (1.005-1.030)
[2019-01-28 20:24] LABS: Urine Blood TRACE (NEG); Urine Protein 2+ (NEG)
[2019-01-28 20:30] LABS: Urine Bacteria 20-50 /HPF (<20); Urine Culture Reflex Order REFLEXED; Urine Mucus HEAVY /HPF (NONE SEEN); Urine RBC <5 /HPF (NONE SEEN)
[2019-01-28] MEDS ORDERED: NA CHLORIDE 0.9% 1,000 ML ONE ×2 (20:40→22:07)
[2019-01-28 21:01] LABS: Absolute Lymphocytes (CBC) 2.7 K/uL (0.7-4.9); Absolute Monocytes 0.8 K/uL (0.1-1.3); Absolute Neutrophil 13.2 K/uL (1.8-8.0); Basophils % 0.5 % (0-1.3); Eosinophils % 0.7 % (0-4.4); Hematocrit 47.8 % (36.0-45.0); Monocytes % 4.6 % (3.3-12.3); RBC Red Blood Cell Count 5.27 M/uL (3.86-4.86)
[2019-01-28 21:18] LABS: Albumin 3.9 g/dL (3.4-5.0); Bilirubin Direct 0.1 mg/dL (0-0.2); Bilirubin Total 0.4 mg/dL (0.2-1.0); Protein, Total 8.7 g/dL (6.4-8.2)
[2019-01-28 21:45] LABS: Platelet Estimate INCR; Platelets, Giant NOTED
[2019-01-28 21:46] LABS: Blood Morphology Comment NOT SEEN (NOT SEEN)
[2019-01-28] MEDS ORDERED: FENTANYL CITR 100 MCG/2 ML ONE (21:47)
--- NOTE | 2019-01-28 22:50 | EDPHYS ---
Physician Documentation [facility] Name: Patti Crawford Age: 23 yrs Sex: Female : 1995 Arrival Date: 01/28/2019 Time: 19:42 Bed 15 Private MD: ED Physician Roque Matta HPI: 01/28 22:42 This 23 yrs old Female presents to ER via Ambulatory with complaints of shirlene Abdominal Pain. 22:42 The patient presents with abdominal pain in the upper abdomen, in the lower abdomen. shirlene Onset: The symptoms/episode began/occurred 2 day(s) ago. The patient presents to the emergency department with nausea, vomiting, abdominal pain, of the right upper quadrant, left upper quadrant, right lower quadrant and left lower quadrant. Onset: The symptoms/episode began/occurred 2 day(s) ago. Possible causes: unknown. The symptoms are aggravated by movement, pressure, food , The symptoms are alleviated by remaining still. The symptoms do not radiate. MARKETING COORDINATOR: 19:51 LMP N/A - control method lp1 Historical: - Allergies: 19:52 No Known Allergies; lp1 - Home Meds: 19:52 Tramadol Oral [Active]; lp1 - PMHx: 19:52 None; lp1 - PSHx: 19:52 None; lp1 - Immunization history:: Adult Immunizations up to date. - Social history:: Smoking status: Patient uses tobacco products, denies chronic smoking, but will smoke occasionally. - Ebola Screening: : No symptoms or risks identified at this time. - Family history:: not pertinent. ROS: 22:42 Constitutional: Negative for fever, chills, and weight loss, Eyes: Negative for injury, shirlene pain, redness, and discharge, ENT: Negative for injury, pain, and discharge, Neck: Negative for injury, pain, and swelling, Cardiovascular: Negative for chest pain, palpitations, and edema, Respiratory: Negative for shortness of breath, cough, wheezing, and pleuritic chest pain, Back: Negative for injury and pain, : Negative for injury, bleeding, discharge, and swelling, MS/Extremity: Negative for injury and deformity, Skin: Negative for injury, rash, and discoloration, Neuro: Negative for headache, weakness, numbness, tingling, and seizure, Psych: Negative for depression, anxiety, suicide ideation, homicidal ideation, and hallucinations, Allergy/Immunology: Negative for hives, rash, and allergies, Endocrine: Negative for neck swelling, polydipsia, polyuria, polyphagia, and marked weight changes, Hematologic/Lymphatic: Negative for swollen nodes, abnormal bleeding, and unusual bruising. 22:42 Abdomen/GI: Positive for abdominal pain, nausea and vomiting, abdominal cramps, abdominal distension, of the right upper quadrant, left upper quadrant, right lower quadrant and left lower quadrant. Exam: 22:42 Constitutional: This is a well developed, well nourished patient who is awake, alert, shirlene and in no acute distress. Head/Face: Normocephalic, atraumatic. Eyes: Pupils equal round and reactive to light, extra-ocular motions intact. Lids and lashes normal. Conjunctiva and sclera are non-icteric and not injected. Cornea within normal limits. Periorbital areas with no swelling, redness, or edema. ENT: Nares patent. No nasal discharge, no septal abnormalities noted. Tympanic membranes are normal and external auditory canals are clear. Oropharynx with no redness, swelling, or masses, exudates, or evidence of obstruction, uvula midline. Mucous membranes moist. Neck: Trachea midline, no thyromegaly or masses palpated, and no cervical lymphadenopathy. Supple, full range of motion without nuchal rigidity, or vertebral point tenderness. No Meningismus. Chest/axilla: Normal chest wall appearance and motion. Nontender with no deformity. No lesions are appreciated. Respiratory: Lungs have equal breath sounds bilaterally, clear to auscultation and percussion. No rales, rhonchi or wheezes noted. No increased work of breathing, no retractions or nasal flaring. Back: No spinal tenderness. No costovertebral tenderness. Full range of motion. Female : Normal external genitalia. Skin: Warm, dry with normal turgor. Normal color with no rashes, no lesions, and no evidence of cellulitis. MS/ Extremity: Pulses equal, no cyanosis. Neurovascular intact. Full, normal range of motion. Neuro: Awake and alert, GCS 15, oriented to person, place, time, and situation. Cranial nerves II-XII grossly intact. Motor strength 5/5 in all extremities. Sensory grossly intact. Cerebellar exam normal. Normal gait. Psych: Awake, alert, with orientation to person, place and time. Behavior, mood, and affect are within normal limits. 22:42 Cardiovascular: Rate: tachycardic, Rhythm: regular, Pulses: Pulses are 4+ in bilateral radial, brachial, femoral, popliteal, posterior tibial and and dorsalis pedis arteries.. Heart sounds: normal, Edema: is not appreciated. Vital Signs: 19:51 BP 106 / 74; Pulse 121; Resp 16; Temp 98.1(O); Pulse Ox 100% on R/A; Weight 63.5 kg; lp1 Height 5 ft. 5 in. (165.10 cm); Pain 10/10; 20:30 BP 105 / 86; Pulse 81; Resp 19 S; Pulse Ox 100% on R/A; cc3 21:15 BP 114 / 79; Pulse 92; Resp 18 S; Pulse Ox 100% on R/A; cc3 22:45 BP 102 / 75; Pulse 80; Resp 18 S; Pulse Ox 100% on R/A; cc3 23:07 BP 105 / 74; Pulse 83; Resp 18 S; Pulse Ox 100% on R/A; cc3 01/29 00:30 BP 115 / 77; Pulse 87; Resp 18 S; Pulse Ox 98% on R/A; cc3 01/28 19:51 Body Mass Index 23.30 (63.50 kg, 165.10 cm) lp1 MDM: 01/28 21:15 Patient medically screened. 22:45 Data reviewed: vital signs, nurses notes, lab test result(s), EKG, radiologic studies, shirlene CT scan, plain films. 01/28 20:07 Order name: Urine Microscopic Only; Complete Time: 21:14 [facility] 01/28 20:07 Order name: Urine Culture [facility] 01/28 20:14 Order name: Urine Dipstick--Ancillary (enter results) [facility] 01/28 20:14 Order name: Urine --Ancillary (enter results) [facility] 01/28 20:19 Order name: Basic Metabolic Panel; Complete Time: 21:23 01/28 20:19 Order name: CBC with Diff; Complete Time: 22:47 01/28 20:19 Order name: Hepatic Function; Complete Time: 21:23 01/28 20:19 Order name: Lipase; Complete Time: 21:23 01/28 21:36 Order name: CT Abd/Pelvis - W/Contrast 01/28 21:36 Order name: Manual Differential; Complete Time: 22:47 [facility] 01/28 22:46 Order name: Chest Single View XRAY [facility] 01/28 20:19 Order name: IV Saline Lock; Complete Time: 21:02 01/28 20:19 Order name: Labs collected and sent; Complete Time: 21:02 Administered Medications: 20:45 Drug: NS 0.9% 1000 ml Route: IV; Rate: 1 bolus; Site: right antecubital; cc3 22:30 Follow up: Response: No adverse reaction; IV Status: Completed infusion; IV Intake: cc3 1000ml 21:35 Drug: fentaNYL (PF) 50 mcg Route: IVP; Site: right antecubital; cc3 22:00 Follow up: Response: No adverse reaction cc3 22:40 Drug: NS 0.9% 1000 ml Route: IV; Rate: 125 ml/hr; Site: left antecubital; cc3 01/29 00:30 Follow up: Response: No adverse reaction; IV Status: Infusion continued upon admission cc3 01/28 23:10 Drug: morphine 4 mg Route: IVP; Site: left antecubital; cc3 23:30 Follow up: Response: No adverse reaction; Pain is decreased cc3 23:13 Drug: Zofran 4 mg Route: IVP; Site: left antecubital; cc3 23:30 Follow up: Response: No adverse reaction; Nausea is decreased cc3 23:18 Drug: Pepcid 20 mg Route: IVP; Site: left antecubital; cc3 01/29 00:00 Follow up: Response: No adverse reaction; Pain is decreased cc3 01/28 23:22 Drug: Flagyl 500 mg Volume: 100 ml; Route: IVPB; Rate: 200 ml/hr; Infused Over: 30 cc3 mins; Site: left antecubital; 23:45 Follow up: Response: No adverse reaction; IV Status: Completed infusion; IV Intake: cc3 100ml 23:46 Drug: Cipro 400 mg Volume: 200 ml; Route: IVPB; Infused Over: 60 mins; Site: left cc3 antecubital; 23:50 Follow up: Response: No adverse reaction; IV Status: Infusion continued upon admission cc3 Disposition: 01/28/19 22:49 Hospitalization ordered by Remy Shields for Inpatient Admission. Preliminary diagnosis are Abdominal tenderness, Other and unspecified intestinal obstruction - SBO, Elevated white blood cell count, Vomiting. - Bed requested for Telemetry/MedSurg (Inpatient). - Status is Inpatient Admission. cc3 - Condition is Fair. - Problem is new. - Symptoms have improved. UTI on Admission? No Signatures: Dispatcher [employer] EDSD Bernie Brandt RN RN Roque Matta MD MD cha Pena, Laura, RN RN [facility] Claudio Schmidt MD MD Ginger Herron cc3 Corrections: (The following items were deleted from the chart) 20:14 20:07 TEST, SERUM+SC.LAB.BRZ ordered. [facility] 23:35 22:49 Hospitalization Ordered by Remy Shields MD for Inpatient Admission. Preliminary diagnosis is Abdominal tenderness; Other and unspecified intestinal obstruction - SBO; Elevated white blood cell count; Vomiting. Bed requested for Telemetry/MedSurg (Inpatient). Status is Inpatient Admission. Condition is Fair. Problem is new. Symptoms have improved. UTI on Admission? No. [facility] 01/29 00:07 01/28 22:46 NG Tube ordered. [facility] cc3 01/29 00:42 01/28 23:35 01/28/2019 22:49 Hospitalization Ordered by Remy Shields MD for Inpatient cc3 Admission. Preliminary diagnosis is Abdominal tenderness; Other and unspecified intestinal obstruction - SBO; Elevated white blood cell count; Vomiting. Bed requested for Telemetry/MedSurg (Inpatient). Status is Inpatient Admission. Condition is Fair. Problem is new. Symptoms have improved. UTI on Admission? No. mw
--- NOTE | 2019-01-28 22:50 | ER ---
Nurse's Notes [facility] Emergency Department Name: Patti Crawford Age: 23 yrs Sex: Female : 1995 Arrival Date: 01/28/2019 Time: 19:42 Bed 15 Private MD: Diagnosis: Abdominal tenderness;Other and unspecified intestinal obstruction-SBO;Elevated white blood cell count;Vomiting Presentation: 01/28 19:50 Presenting complaint: Patient states: Abdominal pain that began yesterday, worse today; lp1 "I was here a couple weeks ago and they said I have an infection of my intestines"; States nausea at this time. Transition of care: patient was not received from another setting of care. Onset of symptoms was January 28, 2019. Risk Assessment: Do you want to hurt yourself or someone else? Patient reports no desire to harm self or others. Note Patient crying, restless during triage. Care prior to arrival: None. 19:50 Method Of Arrival: Ambulatory lp1 19:50 Acuity: HEYDI 3 lp1 19:52 Initial Sepsis Screen: Does the patient meet any 2 criteria? No. Patient's initial lp1 sepsis screen is negative. Does the patient have a suspected source of infection? No. Patient's initial sepsis screen is negative. Triage Assessment: 20:05 General: Appears in no apparent distress. uncomfortable, Behavior is calm, cooperative. cc3 Pain: Complains of pain in left lower quadrant and right lower quadrant and left upper quadrant and right upper quadrant Quality of pain is described as aching, crampy. EENT: No signs and/or symptoms were reported regarding the EENT system. Neuro: Level of Consciousness is awake, alert, obeys commands, Oriented to person, place, time, situation, Appropriate for age. Cardiovascular: Patient's skin is warm and dry. Respiratory: Airway is patent Respiratory effort is even, unlabored, Respiratory pattern is regular, symmetrical. GI: Abdomen is flat, non-distended. : No signs and/or symptoms were reported regarding the genitourinary system. Derm: No signs and/or symptoms reported regarding the dermatologic system. Musculoskeletal: Circulation, motion, and sensation intact. Range of motion: intact in all extremities. HEALTH CARE RECRUITER: 19:51 LMP N/A - control method lp1 Historical: - Allergies: 19:52 No Known Allergies; lp1 - Home Meds: 19:52 Tramadol Oral [Active]; lp1 - PMHx: 19:52 None; lp1 - PSHx: 19:52 None; lp1 - Immunization history:: Adult Immunizations up to date. - Social history:: Smoking status: Patient uses tobacco products, denies chronic smoking, but will smoke occasionally. - Ebola Screening: : No symptoms or risks identified at this time. - Family history:: not pertinent. Screenin:05 Abuse screen: Denies threats or abuse. Denies injuries from another. Nutritional cc3 screening: No deficits noted. Tuberculosis screening: No symptoms or risk factors identified. Fall Risk Ambulatory Aid- None/Bed Rest/Nurse Assist (0 pts). Gait- Normal/Bed Rest/Wheelchair (0 pts) Mental Status- Oriented to own ability (0 pts). Assessment: 20:05 GI: Bowel sounds diminished in left lower quadrant and right lower quadrant and left cc3 upper quadrant and right upper quadrant Abd is soft Abdomen is tender to palpation X 4 quads. 21:18 Reassessment: Patient appears in no apparent distress at this time. Patient and/or cc3 family updated on plan of care and expected duration. Pain level reassessed. Patient is alert, oriented x 3, equal unlabored respirations, skin warm/dry/pink. 22:25 Reassessment: Patient appears in no apparent distress at this time. Patient and/or cc3 family updated on plan of care and expected duration. Pain level reassessed. Patient is alert, oriented x 3, equal unlabored respirations, skin warm/dry/pink. 23:45 Reassessment: Patient was ordered for an NGT to be in place. While it was being put in, cc3 the patient started shouting and wanting for it to be removed right away and so removed as per patient's demand refusal. Charge nurse Gem and Dr. Matta informed. 01/29 00:20 Reassessment: Patient appears in no apparent distress at this time. Patient and/or cc3 family updated on plan of care and expected duration. Pain level reassessed. Patient is alert, oriented x 3, equal unlabored respirations, skin warm/dry/pink. Room available in 422, report called and handed over to ILDA Kuo for continuity of care and management. 00:40 Reassessment: Patient left ER for admission vitally stable by wheelchair escorted by ED cc3 malika Goff. Vital Signs: 01/28 19:51 BP 106 / 74; Pulse 121; Resp 16; Temp 98.1(O); Pulse Ox 100% on R/A; Weight 63.5 kg; lp1 Height 5 ft. 5 in. (165.10 cm); Pain 10/10; 20:30 BP 105 / 86; Pulse 81; Resp 19 S; Pulse Ox 100% on R/A; cc3 21:15 BP 114 / 79; Pulse 92; Resp 18 S; Pulse Ox 100% on R/A; cc3 22:45 BP 102 / 75; Pulse 80; Resp 18 S; Pulse Ox 100% on R/A; cc3 23:07 BP 105 / 74; Pulse 83; Resp 18 S; Pulse Ox 100% on R/A; cc3 01/29 00:30 BP 115 / 77; Pulse 87; Resp 18 S; Pulse Ox 98% on R/A; cc3 01/28 19:51 Body Mass Index 23.30 (63.50 kg, 165.10 cm) lp1 ED Course: 01/28 19:42 Patient arrived in ED. es 19:51 Triage completed. lp1 19:51 Arm band placed on. lp1 19:59 Claudio Schmidt MD is Attending Physician. 20:02 Ginger Herron is Primary Nurse. cc3 20:05 Patient has correct armband on for positive identification. Placed in gown. Bed in low cc3 position. Call light in reach. Side rails up X 1. credit risk review officer on. Pulse ox on. NIBP on. 20:45 Inserted saline lock: 20 gauge in right antecubital area, using aseptic technique. cc3 Blood collected. 21:[address] nj 21:49 CT completed. Patient tolerated procedure well. Patient moved back from CT. nj 22:01 CT Abd/Pelvis - W/Contrast In Process Unspecified. EDMS 22:12 Attending Physician role handed off by Claudio Schmidt MD shirlene 22:12 Roque Matta MD is Attending Physician. shirlene 22:20 IV discontinued, intact, bleeding controlled, No redness/swelling at site. Pressure cc3 dressing applied. 22:30 Inserted saline lock: 20 gauge in left antecubital area, using aseptic technique. cc3 inserted by ILDA Ornelas. 22:48 Remy Shields MD is Hospitalizing Provider. [facility] 22:58 Chest Single View XRAY In Process Unspecified. EDMS 01/29 00:40 No provider procedures requiring assistance completed. Patient admitted, IV remains in cc3 place. Administered Medications: 01/28 20:45 Drug: NS 0.9% 1000 ml Route: IV; Rate: 1 bolus; Site: right antecubital; cc3 22:30 Follow up: Response: No adverse reaction; IV Status: Completed infusion; IV Intake: cc3 1000ml 21:35 Drug: fentaNYL (PF) 50 mcg Route: IVP; Site: right antecubital; cc3 22:00 Follow up: Response: No adverse reaction cc3 22:40 Drug: NS 0.9% 1000 ml Route: IV; Rate: 125 ml/hr; Site: left antecubital; cc3 01/29 00:30 Follow up: Response: No adverse reaction; IV Status: Infusion continued upon admission cc3 01/28 23:10 Drug: morphine 4 mg Route: IVP; Site: left antecubital; cc3 23:30 Follow up: Response: No adverse reaction; Pain is decreased cc3 23:13 Drug: Zofran 4 mg Route: IVP; Site: left antecubital; cc3 23:30 Follow up: Response: No adverse reaction; Nausea is decreased cc3 23:18 Drug: Pepcid 20 mg Route: IVP; Site: left antecubital; cc3 01/29 00:00 Follow up: Response: No adverse reaction; Pain is decreased cc3 01/28 23:22 Drug: Flagyl 500 mg Volume: 100 ml; Route: IVPB; Rate: 200 ml/hr; Infused Over: 30 cc3 mins; Site: left antecubital; 23:45 Follow up: Response: No adverse reaction; IV Status: Completed infusion; IV Intake: cc3 100ml 23:46 Drug: Cipro 400 mg Volume: 200 ml; Route: IVPB; Infused Over: 60 mins; Site: left cc3 antecubital; 23:50 Follow up: Response: No adverse reaction; IV Status: Infusion continued upon admission cc3 Intake: 22:30 IV: 1000ml; Total: 1000ml. cc3 23:45 IV: 100ml; Total: 1100ml. cc3 Outcome: 22:49 Decision to Hospitalize by Provider. shirlene 03 00:40 Admitted to Tele accompanied by tech, via wheelchair, room 422, with chart, Report cc3 called to ILDA Kuo Condition: stable Instructed on the need for admit, Demonstrated understanding of instructions. 00:42 Patient left the ED. cc3 Signatures: Dispatcher [employer] Roque Cedillo MD MD cha Salyer, eBrnie Mckenna RN RN lp1 Sebas Hernandez Gregory, MD MD gs Cordel, Charlene cc3 Corrections: (The following items were deleted from the chart) 00:06 03/ 23:45 Reassessment: Patient was ordered for an NGT to be in place. When it was cc3 put in, the patient started shouting and wanting for it to be removed right away and so removed as per patient's demand. Charge nurse Gem and Dr. Matta informed. cc3
[2019-01-28] MEDS ORDERED: ONDANSETRON 4 MG/2 ML VIAL ONE (23:22)
[2019-01-28] MEDS ORDERED: MORPHINE 4 MG/ML SYR ONE (23:22)
[2019-01-28] MEDS ORDERED: FAMOTIDINE 20 MG/2 ML VIAL IV ONE (23:23)
[2019-01-28] MEDS ORDERED: CIPROFLOXACIN 400mg IV 400 MG/200 ML BAG IV ONE (23:23)
[2019-01-28] MEDS ORDERED: METRONIDAZOLE 500mg IVPB 500 MG/100 ML BAG IV ONE (23:23)
[2019-01-29 00:55] VITALS: O2SAT 100
[2019-01-29] MEDS ORDERED: ACETAMINOPHEN 500 MG TAB PO PRN (01:03)
[2019-01-29] MEDS: METRONIDAZOLE 500mg IVPB 500 MG/100 ML BAG IV SCH ×3 (01:03→17:03)
[2019-01-29] MEDS: NA CHLORIDE 0.9% 1,000 ML IV SCH ×3 (01:03→21:09)
[2019-01-29 01:35] VITALS: BMI 21.5
[2019-01-29] MEDS: KETOROLAC 30 MG/ML INJ IV PRN ×4 (04:16→22:50)
[2019-01-29 04:26] LABS: Absolute Lymphocytes (CBC) 2.6 K/uL (0.7-4.9); Absolute Monocytes 0.7 K/uL (0.1-1.3); Absolute Neutrophil 6.2 K/uL (1.8-8.0); Basophils % 0.6 % (0-1.3); Eosinophils % 1.1 % (0-4.4); Hematocrit 40.6 % (36.0-45.0); Lymphocytes % 26.9 % (15.3-44.8); MPV 8.1 fL (7.6-11.3); Monocytes % 7.3 % (3.3-12.3)
--- NOTE | 2019-01-29 04:37 | P.HP ---
Certification for Inpatient Patient admitted to: Inpatient With expected LOS: >2 Midnights Practitioner: I am a practitioner with admitting privileges, knowledge of patient current condition, hospital course, and medical plan of care. Services: Services provided to patient in accordance with Admission requirements found in Title 42 Section 412.3 of the Code of Federal Regulations Patient History Date of Service: 01/28/19 Reason for admission: Enteritis History of Present Illness: Ms Crawford is a 23 years old woman who was recently admitted to the hospital due to enteritis 2 weeks ago, she was discharged with oral antibiotics. She was doing well, until 2 days ago when she start again with upper abdominal pain, associated with nausea and vomiting. She denied fever or chills. She symptoms were similar to previous admission. Lab work shows leukocytosis, 16.9K, UA abnormal consistent with UTI. CT abd/pelvis shows signs of enteritis, concern for SBO vs ileus. The patient remain afebrile in ED. Allergies No Known Drug Allergies Allergy (Verified 01/17/19 08:09) Unknown Home Medications: Tramadol HCl [Ultram] 50 mg PO TID PRN #10 tablet 01/19/19 - Past Medical/Surgical History Has patient received pneumonia vaccine in the past: No Diabetic: No -: intestinal infection (approximately a week ago.) Past Surgical History: Reviewed- Non-Contributory - Family History Mother Notes: patient states no medical history Father Notes: patient states no medical history - Social History Smoking Status: Current some day smoker Counseled patient to stop smoking for: less than 10 minutes Alcohol use: No CD- Drugs: Yes Caffeine use: Yes Place of Residence: Home Review of Systems 10-point ROS is otherwise unremarkable Physical Examination - Vital Signs Temperature: 99.7 F Blood Pressure: 105/56 Pulse: 97 Respirations: 14 Pulse Ox (%): 99 - Physical Exam General: Alert, Mild distress (due to abdominal pain) HEENT: Atraumatic, PERRLA, Mucous membr. moist/pink, EOMI, Sclerae nonicteric Neck: Supple, 2+ carotid pulse no bruit, No LAD, Without JVD or thyroid abnormality Respiratory: Clear to auscultation bilaterally, Normal air movement Cardiovascular: Regular rate/rhythm, Normal S1 S2 Gastrointestinal: Normal bowel sounds, Tenderness (bilateral upper quadrant and epigastric area.) Musculoskeletal: No tenderness Integumentary: No rashes Neurological: Normal speech, Normal strength at 5/5 x4 extr, Normal tone, Normal affect Lymphatics: No axilla or inguinal lymphadenopathy - Studies Laboratory Data (last 24 hrs) 01/28/19 20:45: WBC 16.9 H D, Hgb 15.9 H D, Hct 47.8 H D, Plt Count 716 H D 01/28/19 20:45: Sodium 140, Potassium 4.0, BUN 19 H, Creatinine 0.99, Glucose 96 , Total Bilirubin 0.4, AST 18, ALT 19, Alkaline Phosphatase 100, Lipase 99 Assessment and Plan - Problems (Diagnosis) (1) SBO (small bowel obstruction) Current Visit: Yes Status: Acute (2) Enteritis Current Visit: No Status: Acute (3) UTI (urinary tract infection) Current Visit: No Status: Acute Qualifiers: Urinary tract infection type: acute cystitis Hematuria presence: without hematuria Qualified Code(s): N30.00 - Acute cystitis without hematuria - Plan Will admit the patient due to enteritis, SBO vs ileus and UTI. Will keep the patient NPO, start empiric treatment with IV Cipro and Flagyl, consult Surgery and GI team. - Advance Directives Does patient have a Living Will: No Does patient have a Durable POA for Healthcare: No - Code Status/Comfort Care Code Status Assessed: Yes Code Status: Full Code
[2019-01-29 04:40] LABS: BUN Blood Urea Nitrogen 16 mg/dL (7-18); Bicarbonate 26 mmol/L (21-32); Glucose Level 83 mg/dL (74-106); Potassium 3.7 mmol/L (3.5-5.1); Sodium Level 141 mmol/L (136-145)
[2019-01-29] MEDS ORDERED: INFLUENZA VACCINE (for 3y+) 0.5 ML DOSE IMVAC ONE (08:00)
--- NOTE | 2019-01-29 08:21 | RAD REPORT ---
EXAM DESCRIPTION: RAD - Chest Single View - 01/28/2019 10:58 pm CLINICAL HISTORY: ABDOMINAL DISTENTION Chest pain. COMPARISON: No comparisons FINDINGS: Portable technique limits examination quality. The lungs are grossly clear. Vague nipple shadows suspected bilaterally. The heart is normal in size. No displaced fractures. IMPRESSION: No acute intrathoracic process suspected.
[2019-01-29] MEDS ORDERED: KCL 20 MEQ/100 mL IVPB 20 MEQ/100 ML BAG IV SCH (09:00)
[2019-01-29] MEDS: CIPROFLOXACIN 400mg IV 400 MG/200 ML BAG IV SCH ×2 (09:01→21:08)
--- NOTE | 2019-01-29 12:06 | RAD REPORT ---
EXAM DESCRIPTION: CT Abdomen and Pelvis With Intravenous Contrast CLINICAL HISTORY: The patient is 23 years old and is Female; ABD PAIN TECHNIQUE: Axial computed tomography images of the abdomen and pelvis with intravenous contrast. S agittal and coronal reformatted images were created and reviewed. This CT exam was performed using one or more of the following dose reduction techniques: automated exposure control, adjustment of t he mA and/or kV according to patient size, and/or use of iterative reconstruction technique. COMPARISON: CT abdomen and pelvis with IV contrast dated January 17, 2019. FINDINGS: LUNG BASES: Lung bases are clear. HEART: Visualized heart is unremarkable. ABDOMEN: LIVER: Unremarkable. No mass. GALLBLADDER AND BILE DUCTS: Unremarkable. No calcified stones. No ductal dilation. PANCREAS: Unremarkable. No mass. No ductal dilation. SPLEEN: Unremarkable. No splenomegaly. ADRENALS: Unremarkable. No mass. KIDNEYS AND URETERS: Unremarkable. No solid mass. No hydronephrosis. STOMACH AND BOWEL: Distention of multiple small bowel loops with air-fluid levels seen in the lowe r abdomen. Also noted is wall thickening of the jejunum with surrounding stranding. PELVIS: APPENDIX: Gas-filled appendix is seen. BLADDER: Unremarkable. No mass. REPRODUCTIVE: Unremarkable as visualized. ABDOMEN and PELVIS: INTRAPERITONEAL SPACE: Moderate amount of lower abdominal and pelvic fluid. Finding is increased f rom prior exam. No free air. BONES/JOINTS: No acute fracture. No dislocation. SOFT TISSUES: Unremarkable. VASCULATURE: Unremarkable. No abdominal aortic aneurysm. LYMPH NODES: Unremarkable. No enlarged lymph nodes. TUBES, LINES AND DEVICES: Incompletely characterized heterogenous enlargement of the uterus with d emonstration of intrauterine contraceptive device. IMPRESSION: 1. Distention of small bowel loops with air-fluid level concerning for partial small b owel obstruction or small bowel ileus. The terminal ileum is decompressed. No free abdominal air. 2. Wall thickening of the jejunum with surrounding thickening. Finding could be due to enteritis. C orrelate for signs of infection. 3. Worsened moderate amount of free abdominal and pelvic fluid. 4. Incompletely characterized physiologic pelvic changes with suggestion of 1.7 cm right corpus lut eal cyst. No follow-up imaging is recommended. Reference: US recommendations based on Radiology 2010 Sep;256(3):943-54; CT/MR recommendations based on J Am Ning Radiol 2013;10:675-681. THIS REPORT CONTAINS FINDINGS THAT MAY BE CRITICAL TO PATIENT'S CARE: The findings were verbally discussed via telephone conference with Roque Matta by Dr. Ruvalcaba on 01/28/2019 10:14 PM MEDICAL OFFICE ASSISTANT INSTRUCTOR. The results were acknowledged and understood. Electronically signed by: Lázaro Ruvalcaba DO 01/28/2019 10:14 PM MEDICAL OFFICE ASSISTANT INSTRUCTOR Due to temporary technical issues with the PACS/Fluency reporting system, reports are being signed by the in house radiologist as a courtesy to ensure prompt reporting. The interpreting radiologist is f ully responsible for the content of the report.
--- NOTE | 2019-01-29 15:25 | P.PN ---
Subjective Date of Service: 01/29/19 Primary Care Provider: None Chief Complaint: Enteritis Subjective: Other (Patient with slight improvement. Patient failed to take antibiotic therapy from her previous hospitalization.) Physical Examination - Vital Signs Temperature: 97.0 F Blood Pressure: 100/60 Pulse: 80 Respirations: 18 Pulse Ox (%): 98 - Physical Exam General: Alert, In no apparent distress, Oriented x3, Cooperative HEENT: Atraumatic Neck: Supple Respiratory: Clear to auscultation bilaterally, Normal air movement Cardiovascular: Normal pulses, Regular rate/rhythm Gastrointestinal: Hypoactive, Soft and benign, Non-distended, No masses, No rebound, No guarding, Tenderness (Pain to the abdominal region throughout) Musculoskeletal: No erythema, No tenderness, No warmth Integumentary: No tenderness/swelling, No erythema, No warmth, No cyanosis Neurological: Normal speech, Normal strength at 5/5 x4 extr, Normal tone, Normal affect - Studies Laboratory Data (last 24 hrs) 01/28/19 20:45: WBC 16.9 H D, Hgb 15.9 H D, Hct 47.8 H D, Plt Count 716 H D 01/28/19 20:45: Sodium 140, Potassium 4.0, BUN 19 H, Creatinine 0.99, Glucose 96 , Total Bilirubin 0.4, AST 18, ALT 19, Alkaline Phosphatase 100, Lipase 99 Medications List Reviewed: Yes Assessment & Plan Discharge Plan: Home Plan to discharge in: Greater than 2 days Physician Review Additional Text: Impression: Abdominal pain secondary to recurrent enteritis complicated with failed outpatient completion of antibiotics Dehydration UTI Plan: Abdominal pain secondary to recurrent enteritis complicated with failed outpatient completion of antibiotics: Patient recently hospitalized for enteritis. She was seen by surgery on the previous admission. Patient was discharged on antibiotics. She felt to take her antibiotics due to lack of financial resources. Patient returns with abdominal pain enteritis. Case discussed with surgery. Continue IV antibiotic therapy and IV fluids. See GI consulted to further evaluate. Patient may require further GI workup as an outpatient. Encourage ambulation. Provide incentive spirometer. Dehydration: Continue IV fluids. UTI: Blood cultures obtained along with urine culture. Continue with antibiotic therapy. Time Spent Managing Pts Care (In Minutes): 55
[2019-01-29] MEDS: ENOXAPARIN 40 MG/0.4 ML SQ SCH (17:00)
[2019-01-29] MEDS ORDERED: TRAMADOL HCL 50 MG TAB PO PRN (18:17)
[2019-01-29] MEDS: MORPHINE 2 MG/ML SYR IV PRN (18:39)
--- NOTE | 2019-01-29 18:44 | CON ---
Date of Consultation: 01/29/2019 Reason For Consultation: Abdominal pain. History Of Present Illness: The patient is a 23-year-old female, who I saw on January 17 with ent eritis. She was started on antibiotics and she did very well and she was discharged. A prescription for antibiotics was given to the patient. However she did not get those antibiotics because of landy ncial issues and she was doing okay up until yesterday, she started having diffuse abdominal pain wit h some nausea and vomiting. No diarrhea. No constipation. No blood in the stool. No dysuria or he maturia. No sore throat, runny nose, cough, headaches, or dizziness. The pain is in the central abd omen, is diffuse, crampy in nature. No fever or chills at this time. Review of Systems: Otherwise unremarkable. Past Medical History: Negative. Past Surgical History: Negative. Allergies: NO ALLERGIES. Social History: She does smoke, has been counseled and denies drinking alcohol. She does some recre ational drugs as well. Again being counseled. Physical Examination: Vital Signs: Stable. Her temperature on admission was 99.7. Currently she is afebrile. General: She is awake, alert, and oriented x3. Head and Neck: cranial nerves 2 through 12 are grossly within normal limits. No neck masses. No JV D. Throat clear. Neck: Supple. Chest: Clear. Heart: S1, S2. Abdomen: Soft, slightly distended. Diffuse tenderness but no significant rigidity or guarding. Min imal rebound. Extremities: Adequately perfused. Nontender. Neuro: Nonfocal. Laboratory Data: White count on admission yesterday was 16.9 with a left shift. Platelets were 716. Today white count is 9.7, platelets are down to 597 and neutrophil percentage has normalized as wel l. Chemistry reviewed and essentially unremarkable. CT of the abdomen and pelvis reviewed with the radiologist and essentially she does have usual inflammation enteritis. No free air. No abscess. T here are some small bowel loops with air-fluid levels. On the differential, there is partial small b owel obstruction versus ileus and enteritis. My concern is patient may have inflammatory bowel disea se and does needed GI evaluation as well. There is some abdominal and pelvic fluids probably secondary to the inflammation. Again, no free air or abscess seen. Assessment: Enteritis, possible inflammatory bowel disease, partial small bowel obstruction secondar y to above. Recommendation: N.p.o. at this time. IV fluids. IV antibiotics. Serial abdominal exams. GI evalu ation. No need for any surgical intervention at this time. She will advise Dr. Weber that we need to get Material Stress Tester to help her obtain oral antibiotics prior to discharge as she had difficulty last time and she does need a GI followup as far as surgery is concerned. Please re-consult surgery p.r.n. but at this time the patient does not need any intervention from a surgery point of view. YUDY/ERWIN Voice ID: [id number] Report ID: [id number]
[2019-01-29] MEDS: HYDROCODONE/APAP 7.5/325 MG TAB PO SCH (21:08)
[2019-01-29] MEDS: FAMOTIDINE 20 MG/2 ML VIAL IV SCH (21:09)
[2019-01-29] MEDS: MELATONIN 3 MG TABLET PO PRN (21:36)
[2019-01-30] MEDS: MORPHINE 2 MG/ML SYR IV PRN ×3 (00:13→20:03)
[2019-01-30] MEDS: METRONIDAZOLE 500mg IVPB 500 MG/100 ML BAG IV SCH ×3 (00:13→17:08)
[2019-01-30 05:03] LABS: Absolute Lymphocytes (CBC) 2.7 K/uL (0.7-4.9); Absolute Monocytes 0.7 K/uL (0.1-1.3); Absolute Neutrophil 2.6 K/uL (1.8-8.0); Basophils % 0.7 % (0-1.3); Eosinophils % 2.8 % (0-4.4); Hematocrit 33.9 % (36.0-45.0); Lymphocytes % 43.4 % (15.3-44.8); MPV 8.2 fL (7.6-11.3); Monocytes % 11.2 % (3.3-12.3); RBC Red Blood Cell Count 3.75 M/uL (3.86-4.86)
[2019-01-30 05:06] LABS: BUN Blood Urea Nitrogen 15 mg/dL (7-18); Bicarbonate 28 mmol/L (21-32); Glucose Level 103 mg/dL (74-106); Magnesium 1.8 mg/dL (1.8-2.4); Potassium 3.8 mmol/L (3.5-5.1); Sodium Level 142 mmol/L (136-145)
[2019-01-30] MEDS ORDERED: MAGNESIUM SULFATE 1 gm IVPB 1 GM/100 ML BAG IV ONE (05:18)
[2019-01-30] MEDS ORDERED: POTASSIUM CL SA 10 MEQ TAB PO ONE (05:19)
[2019-01-30] MEDS: NA CHLORIDE 0.9% 1,000 ML IV SCH ×3 (05:46→20:03)
[2019-01-30] MEDS: FAMOTIDINE 20 MG/2 ML VIAL IV SCH ×2 (08:25→20:03)
[2019-01-30] MEDS: CIPROFLOXACIN 400mg IV 400 MG/200 ML BAG IV SCH ×2 (08:26→20:03)
[2019-01-30] MEDS: HYDROCODONE/APAP 7.5/325 MG TAB PO SCH ×4 (08:26→23:10)
--- NOTE | 2019-01-30 12:49 | P.PN ---
Subjective Date of Service: 01/30/19 Primary Care Provider: None Chief Complaint: Enteritis Subjective: Improving (Patient is slowly improving. Less pain to the abdomen. Tolerating full liquid diet) Physical Examination - Vital Signs Temperature: 97.9 F Blood Pressure: 107/57 Pulse: 86 Respirations: 16 Pulse Ox (%): 100 - Physical Exam General: Alert, In no apparent distress, Oriented x3, Cooperative HEENT: Atraumatic, Other (Dry mucous membranes) Neck: Supple Respiratory: Clear to auscultation bilaterally, Normal air movement Cardiovascular: Normal pulses, Regular rate/rhythm Gastrointestinal: Normal bowel sounds, Soft and benign, Non-distended, No masses , No rebound, No guarding, Tenderness (Less pain to the abdomen) Musculoskeletal: No erythema, No tenderness, No warmth Integumentary: No erythema, No warmth, No cyanosis Neurological: Normal speech, Normal strength at 5/5 x4 extr, Normal tone, Normal affect - Studies Medications List Reviewed: Yes Assessment & Plan Discharge Plan: Home Plan to discharge in: 24 Hours Physician Review Additional Text: Impression: Abdominal pain secondary to recurrent enteritis complicated with failed outpatient completion of antibiotics Dehydration UTI Plan: Abdominal pain secondary to recurrent enteritis complicated with failed outpatient completion of antibiotics: Patient slowly improving with IV fluids and antibiotic therapy. Patient desires to go home. Will advance diet to soft. If tolerates diet today will consider discharging home. Surgery recommends to hold for one more day. Will readdress with patient. Patient may leave against medical advice. Will discuss with patient to stay at least a 1 more day. Case discussed with GI yesterday. Patient will need EGD, colonoscopy and pill capsule as an outpatient. Dehydration: Continue IV fluids. UTI: Blood cultures obtained along with urine culture. Continue with antibiotic therapy. Time Spent Managing Pts Care (In Minutes): 55
[2019-01-30] MEDS: ENOXAPARIN 40 MG/0.4 ML SQ SCH (16:03)
--- NOTE | 2019-01-30 16:59 | PN ---
Date of Progress Note: 01/30/2019 Subjective: The patient is awake, alert, tolerating clear liquids. Still with some pain. Objective: Vital Signs: Stable, afebrile. Abdomen: Soft. Minimal distention. Minimal tenderness. No rebound, rigidity, or guarding. Laboratory Data: White count is 6.3. Platelets are down to 435. There is no left shift. Assessment: Enteritis, etiology unclear. Recommendations: Continue IV antibiotics. Advance slowly the diet to full liquids if tolerated, the n to GI soft. The patient does need a GI workup, can be done as an outpatient. Once the patient's p ain is under control and exam shows no evidence of tenderness, then she can be discharged on Cipro an d Flagyl, and follow up with GI. Plan discussed with Dr. Resendez. YUDY/ERWIN Voice ID: [id number] Report ID: [id number]
[2019-01-30] MEDS: MELATONIN 3 MG TABLET PO PRN (20:07)
[2019-01-30] MEDS: ONDANSETRON 4 MG/2 ML VIAL IV PRN (23:11)
[2019-01-31] MEDS: METRONIDAZOLE 500mg IVPB 500 MG/100 ML BAG IV SCH ×2 (00:09→09:55)
[2019-01-31] MEDS: NA CHLORIDE 0.9% 1,000 ML IV SCH ×2 (05:30→13:27)
[2019-01-31] MEDS: MORPHINE 2 MG/ML SYR IV PRN (05:30)
[2019-01-31 06:17] LABS: Absolute Lymphocytes (CBC) 2.9 K/uL (0.7-4.9); Absolute Monocytes 0.5 K/uL (0.1-1.3); Absolute Neutrophil 2.5 K/uL (1.8-8.0); Eosinophils % 2.6 % (0-4.4); Hematocrit 31.5 % (36.0-45.0); Lymphocytes % 47.3 % (15.3-44.8); MPV 8.2 fL (7.6-11.3); Monocytes % 8.3 % (3.3-12.3)
[2019-01-31 06:33] LABS: BUN Blood Urea Nitrogen 7 mg/dL (7-18); Bicarbonate 28 mmol/L (21-32); Glucose Level 83 mg/dL (74-106); Magnesium 1.9 mg/dL (1.8-2.4); Potassium 4.1 mmol/L (3.5-5.1); Sodium Level 144 mmol/L (136-145)
[2019-01-31 07:42] LABS: Blood Morphology Comment NOT SEEN (NOT SEEN); Platelet Estimate ADEQ
[2019-01-31] MEDS: HYDROCODONE/APAP 7.5/325 MG TAB PO SCH ×2 (09:22→13:26)
[2019-01-31] MEDS: FAMOTIDINE 20 MG/2 ML VIAL IV SCH (09:22)
[2019-01-31] MEDS: CIPROFLOXACIN 400mg IV 400 MG/200 ML BAG IV SCH (10:41)
--- NOTE | 2019-01-31 11:57 | P.PN ---
Subjective Date of Service: 01/31/19 Primary Care Provider: None Chief Complaint: Enteritis Subjective: Improving (Less pain noted.) Physical Examination - Vital Signs Temperature: 98.4 F Blood Pressure: 97/53 Pulse: 80 Respirations: 18 Pulse Ox (%): 98 - Physical Exam General: Alert, In no apparent distress, Oriented x3, Cooperative HEENT: Atraumatic Neck: Supple Respiratory: Clear to auscultation bilaterally, Normal air movement Cardiovascular: Normal pulses, Regular rate/rhythm Gastrointestinal: Normal bowel sounds, Soft and benign, Non-distended, No masses , No rebound, No guarding, Tenderness (Less pain to the abdomen) Integumentary: No tenderness/swelling, No erythema, No warmth, No cyanosis Neurological: Normal speech, Normal strength at 5/5 x4 extr, Normal tone - Studies Microbiology Data (last 24 hrs): 01/28/19 20:06 Clean Catch Urine [place] Count - Final <10,000 CFU/ML. 01/28/19 20:06 Clean Catch Urine - Final Medications List Reviewed: Yes Assessment & Plan Discharge Plan: Home Plan to discharge in: 24 Hours Physician Review Additional Text: Impression: Abdominal pain secondary to recurrent enteritis complicated with failed outpatient completion of antibiotics Dehydration UTI Plan: Abdominal pain secondary to recurrent enteritis complicated with failed outpatient completion of antibiotics: Patient slowly improving with IV fluids and antibiotic therapy. Will reassess later. If significantly improved possible discharge later today. Case discussed with surgery who agrees. Patient will need continue with antibiotic therapy at home. Patient will need EGD, colonoscopy and pill capsule as an outpatient. Dehydration: Continue IV fluids. Encourage oral intake UTI: Blood cultures obtained along with urine culture. Continue with antibiotic therapy. Time Spent Managing Pts Care (In Minutes): 55
[2019-01-31] MEDS: ONDANSETRON 4 MG/2 ML VIAL IV PRN (13:31)
--- NOTE | 2019-01-31 15:15 | PN ---
Date of Progress Note: 01/31/2019 Subjective: The patient is feeling better. Tolerating diet. Vital signs stable. Afebrile. White count is normal. Abdomen is benign. Assessment: Enteritis, improving. Recommendations: The patient is cleared from Surgery standpoint for discharge. Follow up in GI as a n outpatient. Plan of care was discussed with Dr. Resendez. YUDY/ERWIN Voice ID: [id number] Report ID: [id number]
--- NOTE | 2019-01-31 16:27 | P.DS ---
Admission Date: 01/29/19 Discharge Date: 01/31/19 Primary Care Provider: None Disposition: ROUTINE DISCHARGE Discharge Condition: GOOD Reason for Admission: Enteritis Consultations: Surgery-Dr. Moore GI-Dr. Woods Procedures: CT scan: COMPARISON: CT abdomen and pelvis with IV contrast dated January 17, 2019. FINDINGS: LUNG BASES: Lung bases are clear. HEART: Visualized heart is unremarkable. ABDOMEN: LIVER: Unremarkable. No mass. GALLBLADDER AND BILE DUCTS: Unremarkable. No calcified stones. No ductal dilation. PANCREAS: Unremarkable. No mass. No ductal dilation. SPLEEN: Unremarkable. No splenomegaly. ADRENALS: Unremarkable. No mass. KIDNEYS AND URETERS: Unremarkable. No solid mass. No hydronephrosis. STOMACH AND BOWEL: Distention of multiple small bowel loops with air-fluid levels seen in the lower abdomen. Also noted is wall thickening of the jejunum with surrounding stranding. PELVIS: APPENDIX: Gas-filled appendix is seen. BLADDER: Unremarkable. No mass. REPRODUCTIVE: Unremarkable as visualized. ABDOMEN and PELVIS: INTRAPERITONEAL SPACE: Moderate amount of lower abdominal and pelvic fluid. Finding is increased from prior exam. No free air. BONES/JOINTS: No acute fracture. No dislocation. SOFT TISSUES: Unremarkable. VASCULATURE: Unremarkable. No abdominal aortic aneurysm. LYMPH NODES: Unremarkable. No enlarged lymph nodes. TUBES, LINES AND DEVICES: Incompletely characterized heterogenous enlargement of the uterus with demonstration of intrauterine contraceptive device. IMPRESSION: 1. Distention of small bowel loops with air-fluid level concerning for partial small bowel obstruction or small bowel ileus. The terminal ileum is decompressed. No free abdominal air. 2. Wall thickening of the jejunum with surrounding thickening. Finding could be due to enteritis. Correlate for signs of infection. 3. Worsened moderate amount of free abdominal and pelvic fluid. Medical Problem List: Abdominal pain secondary to recurrent enteritis complicated with failed outpatient completion of antibiotics Dehydration Brief History of Present Illness: 23-year-old female presented emergency room with recurrent abdominal pain. Patient recently hospitalized for enteritis. Patient failed to get her antibiotic therapy at discharge. Patient was admitted for further treatment. CT scan showed enteritis with possible small bowel obstruction or ileus. Hospital Course: Patient presented with recurrent abdominal pain. Patient recently hospitalized for enteritis. Patient failed outpatient completion of antibiotics. Patient was readmitted. Patient responded well to antibiotic therapy and IV fluids. No bowel obstruction or ileus noted. Her diet was advanced slowly. Patient tolerated oral intake. Patient seen and evaluated by surgery and GI. No surgical or GI intervention was needed. At discharge she is without any significant pain and tolerating diet. At discharge she will continue with Cipro 500 mg 1 pill twice daily and Flagyl 500 mg 3 times a day for 7 days. Recommend to follow up with GI in 2-4 weeks to follow up this hospitalization. Patient will need EGD, colonoscopy and pill capsule as an outpatient in 4-6 weeks to further address. Compliance with medication enforced. Patient will be given at 11 supply of Zofran 4 mg twice daily as needed for nausea and tramadol 50 mg 1 pill twice daily as needed for pain. If symptoms persist she is to return to the hospital. Vital Signs/Physical Exam: Temp Pulse Resp BP Pulse Ox 98.0 F 84 18 100/60 99 01/31/19 12:00 01/31/19 12:00 01/31/19 12:00 01/31/19 12:01/31/19 12:00 General: Alert, In no apparent distress, Oriented x3, Cooperative HEENT: Atraumatic Neck: Supple Respiratory: Clear to auscultation bilaterally, Normal air movement Cardiovascular: Normal pulses, Regular rate/rhythm Gastrointestinal: Normal bowel sounds, Soft and benign, Non-distended, No tenderness, No masses, No rebound, No guarding Musculoskeletal: No erythema, No tenderness, No warmth Integumentary: No tenderness/swelling, No erythema, No warmth, No cyanosis Neurological: Normal speech, Normal strength at 5/5 x4 extr, Normal tone, Normal affect Laboratory Data at Discharge: WBC 6.2 K/uL (4.3-10.9) 01/31/19 05:43 Hgb 10.8 g/dL (12.0-15.0) L 01/31/19 05:43 Hct 31.5 % (36.0-45.0) L 01/31/19 05:43 Plt Count 423 K/uL (152-406) H 01/31/19 05:43 Sodium 144 mmol/L (136-145) 01/31/19 05:43 Potassium 4.1 mmol/L (3.5-5.1) 01/31/19 05:43 BUN 7 mg/dL (7-18) 01/31/19 05:43 Creatinine 0.69 mg/dL (0.55-1.3) 01/31/19 05:43 Glucose 83 mg/dL (74-106) 01/31/19 05:43 Magnesium 1.9 mg/dL (1.8-2.4) 01/31/19 05:43 Total Bilirubin 0.4 mg/dL (0.2-1.0) 01/28/19 20:45 AST 18 U/L (15-37) 01/28/19 20:45 ALT 19 U/L (12-78) 01/28/19 20:45 Alkaline Phosphatase 100 U/L (45-117) 01/28/19 20:45 Lipase 99 U/L (73-393) 01/28/19 20:45 Home Medications: Ciprofloxacin HCl [Cipro 500 MG Tablet] 500 mg PO BID #14 tab 01/31/19 Ondansetron HCl [Zofran] 4 mg PO BID PRN #10 tablet 01/31/19 metroNIDAZOLE [Flagyl] 500 mg PO Q8H #21 tablet 01/31/19 traMADol HCL [Ultram*] 50 mg PO BID PRN #10 tab 01/31/19 New Medications: Ciprofloxacin HCl [Cipro 500 MG Tablet] 500 mg PO BID #14 tab metroNIDAZOLE [Flagyl] 500 mg PO Q8H #21 tablet Ondansetron HCl [Zofran] 4 mg PO BID PRN #10 tablet PRN Reason: Nausea / Vomiting traMADol HCL [Ultram*] 50 mg PO BID PRN #10 tab PRN Reason: Pain Scale 2-4 (Mild) Patient Discharge Instructions: 1. Patient to establish care with a PCP to follow up her care. 2. Patient presented with recurrent abdominal pain. Patient recently hospitalized for enteritis. Patient failed outpatient completion of antibiotics. Patient was readmitted. Patient responded well to antibiotic therapy and IV fluids. No bowel obstruction or ileus noted. Her diet was advanced slowly. Patient tolerated oral intake. Patient seen and evaluated by surgery and GI. No surgical or GI intervention was needed. At discharge she is without any significant pain and tolerating diet. At discharge she will continue with Cipro 500 mg 1 pill twice daily and Flagyl 500 mg 3 times a day for 7 days. Recommend to follow up with GI in 2-4 weeks to follow up this hospitalization. Patient will need EGD, colonoscopy and pill capsule as an outpatient in 4-6 weeks to further address. Compliance with medication enforced. Patient will be given at 11 supply of Zofran 4 mg twice daily as needed for nausea and tramadol 50 mg 1 pill twice daily as needed for pain. If symptoms persist she is to return to the hospital. Diet: GI soft bland diet Activity: Ad tommy Time spent managing pt's care (in minutes): 55
[2019-01-31 16:49] VITALS: BP 91/52; TEMP 97.1
== END 2019-01-31 19:10 | disposition home or self-care (01) | DRG 392 ==
LOC: ER 19:37 → ERHOLD 01-29 00:10 → 4TH 01-29 00:32
PROVIDERS: ADMIT Internal Medicine; ATTEND Family Medicine
DX: K52.9 Noninfective gastroenteritis and colitis, unspecified (principal); K56.600 Partial intestinal obstruction, unspecified as to cause; N30.00 Acute cystitis without hematuria; E86.0 Dehydration; F17.210 Nicotine dependence, cigarettes, uncomplicated
CPT/HCPCS: 36415; 71045; 74177; 80048; 80076; 81003; 81015; 81025; 83690; 83735; 85025; 87086; 87088; 97116; 97162; 97530; 99285; J0744; J1650; J2270; J2405; J3010; J3475; J7030; Q9967

== ENCOUNTER 2019-08-11 03:07 | Emergency (ER) | payer SELFPAY ==
[2019-08-11 03:38] LABS: Urine Culture Reflex Order NOT NEEDED
[2019-08-11 03:38] LABS: Urine Blood NEGATIVE (NEG); Urine Glucose NEGATIVE (NEG); Urine Protein NEGATIVE (NEG); Urine Specific Gravity >1.030 (1.005-1.030); Urine pH 5.5 (5.0-7.0)
[2019-08-11 03:40] LABS: Urine Bacteria 20-50 /HPF (<20); Urine RBC <5 /HPF (NONE SEEN)
--- NOTE | 2019-08-11 03:49 | EDPHYS ---
Physician Documentation [facility] Name: Patti Crawford Age: 23 yrs Sex: Female : 1995 Arrival Date: 08/11/2019 Time: 03:12 Bed 7 Private MD: ED Physician Best Hugo HPI: 08/11 03:17 This 23 yrs old Female presents to ER via Unassigned with complaints of rn Abdominal Pain. 03:17 The patient presents with urinary symptoms, dysuria, frequency. Onset: The rn symptoms/episode began/occurred 1 week(s) ago. Modifying factors: The symptoms are alleviated by nothing, the symptoms are aggravated by urinating. Severity of symptoms: At their worst the symptoms were mild, in the emergency department the symptoms are unchanged. The patient has not experienced similar symptoms in the past. Reports 1 week of dysuria and increased frequency, able ot urinate fine, can empty, has IUD, no hematuria. Denies vomiting/diarrhea/blood in stool. . [employer] [facility]: 03:17 LMP N/A - IUD ea Historical: - Allergies: 03:18 No Known Allergies; ea - PMHx: 03:18 None; ea - PSHx: 03:18 None; ea - Immunization history:: Adult Immunizations up to date. - Family history:: not pertinent. - Ebola Screening: : No symptoms or risks identified at this time. - Hospitalizations: : No recent hospitalization is reported. ROS: 03:17 Constitutional: Negative for fever, chills, and weight loss, Neck: Negative for injury, rn pain, and swelling, Cardiovascular: Negative for chest pain, palpitations, and edema, Respiratory: + cough Abdomen/GI: Negative for nausea, vomiting, diarrhea, and constipation, MS/Extremity: Negative for injury and deformity, Skin: Negative for injury, rash, and discoloration, Neuro: Negative for headache, weakness, numbness, tingling, and seizure. Exam: 03:17 Constitutional: This is a well developed, well nourished patient who is awake, alert, rn and in no acute distress. Cardiovascular: Regular rate and rhythm. No pulse deficits. Respiratory: Speaking full sentences. No increased work of breathing, no retractions or nasal flaring. Abdomen/GI: soft, + mild suprapubic tenderness, no rebound Neuro: Awake and alert, GCS 15, oriented to person, place, time, and situation. Cranial nerves II-XII grossly intact. Motor strength 5/5 in all extremities. Sensory grossly intact. Cerebellar exam normal. Normal gait. Vital Signs: 03:17 BP 123 / 80; Pulse 116; Resp 18; Temp 97.6; Pulse Ox 100% on R/A; Weight 58.97 kg; ea Height 5 ft. 6 in. (167.64 cm); 03:53 BP 120 / 76; Pulse 98; Resp 18; Pulse Ox 99% ; ea 03:17 Body Mass Index 20.98 (58.97 kg, 167.64 cm) ea MDM: 03:12 Patient medically screened. rn 03:48 Differential diagnosis: urinary tract infection. Data reviewed: vital signs, nurses rn notes, lab test result(s), radiologic studies, plain films, and as a result, I will discharge patient. Counseling: I had a detailed discussion with the patient and/or guardian regarding: the historical points, exam findings, and any diagnostic results supporting the discharge/admit diagnosis, lab results, radiology results, the need for outpatient follow up, to return to the emergency department if symptoms worsen or persist or if there are any questions or concerns that arise at home. Special discussion: I discussed with the patient/guardian in detail that at this point there is no indication for admission to the hospital. It is understood, however, that if the symptoms persist or worsen the patient needs to return immediately for re-evaluation. 08/11 03:16 Order name: Urine Microscopic Only rn 08/11 03:16 Order name: Urine Culture rn 08/11 03:27 Order name: Urine Dipstick--Ancillary (enter results) mw2 08/11 03:29 Order name: XRAY Chest (1 view) rn 08/11 03:39 Order name: Urine Dipstick-Ancillary; Complete Time: 03:48 EDMS 08/11 03:41 Order name: Urine Microscopic Only; Complete Time: 03:48 EDSC 08/11 03:16 Order name: Urine Dipstick-Ancillary (obtain specimen); Complete Time: 03:35 rn 08/11 03:16 Order name: Urine Test (obtain specimen); Complete Time: 03:34 rn Administered Medications: No medications were administered Disposition: 08/11/19 03:48 Discharged to Home. Impression: Urinary tract infection, site not specified. - Condition is Stable. - Discharge Instructions: Urinary Tract Infection, Adult. - Prescriptions for Macrobid 100 mg Oral Capsule - take 1 capsule by ORAL route every 12 hours for 7 days; 14 capsule. - Medication Reconciliation Form, Thank You Letter, Antibiotic Education, Prescription Opioid Use form. - Follow up: Private Physician; When: As needed; Reason: Recheck today's complaints, Re-evaluation by your physician. - Problem is an ongoing problem. - Symptoms are unchanged. Signatures: Dispatcher [employer] EDMS Best Hugo MD MD rn Antunez, Elena, RN RN rob Corrections: (The following items were deleted from the chart) 03:54 03:48 08/11/2019 03:48 Discharged to Home. Impression: Urinary tract infection, site ea not specified. Condition is Stable. Discharge Instructions: Urinary Tract Infection, Adult. Prescriptions for Macrobid 100 mg Oral Capsule - take 1 capsule by ORAL route every 12 hours for 7 days; 14 capsule. and Forms are Medication Reconciliation Form, Thank You Letter, Antibiotic Education, Prescription Opioid Use. Follow up: Private Physician; When: As needed; Reason: Recheck today's complaints, Re-evaluation by your physician. Problem is an ongoing problem. Symptoms are unchanged. rn
--- NOTE | 2019-08-11 03:49 | ER ---
Nurse's Notes [facility] Name: Patti Crawford Age: 23 yrs Sex: Female : 1995 Arrival Date: 08/11/2019 Time: 03:12 Bed 7 Private MD: Diagnosis: Urinary tract infection, site not specified Presentation: 08/11 03:17 Presenting complaint: Patient states: Reports cough and flank pain for the past week. ea Transition of care: patient was not received from another setting of care. Onset of symptoms was August 11, 2019. Risk Assessment: Do you want to hurt yourself or someone else? Patient reports no desire to harm self or others. Initial Sepsis Screen: Does the patient meet any 2 criteria? No. Patient's initial sepsis screen is negative. Does the patient have a suspected source of infection? No. Patient's initial sepsis screen is negative. Care prior to arrival: None. 03:17 Method Of Arrival: Ambulatory ea 03:17 Acuity: HEYDI 3 ea Triage Assessment: 03:31 General: Appears in no apparent distress. Behavior is calm, cooperative, appropriate ea for age. Pain: Denies pain. Neuro: Level of Consciousness is awake, alert, obeys commands, Oriented to person, place, time. Cardiovascular: Patient's skin is warm and dry. Respiratory: Airway is patent Respiratory effort is even, unlabored, Respiratory pattern is regular, symmetrical. GI: Abdomen is non-distended. Derm: Skin is pink, warm \T\ dry. 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 - Family history:: not pertinent. - Ebola Screening: : No symptoms or risks identified at this time. - Hospitalizations: : No recent hospitalization is reported. Screenin:19 Abuse screen: Denies threats or abuse. Nutritional screening: No deficits noted. ea Tuberculosis screening: No symptoms or risk factors identified. Fall Risk None identified. Assessment: 03:31 General: Appears in no apparent distress. Behavior is calm, cooperative, appropriate ea for age. Pain: Denies pain. Neuro: Level of Consciousness is awake, alert, obeys commands, Oriented to person, place, time, situation. Cardiovascular: Patient's skin is warm and dry. Respiratory: Airway is patent Respiratory effort is even, unlabored, Respiratory pattern is regular, symmetrical. Derm: Skin is pink, warm \T\ dry. 03:52 Reassessment: Patient and/or family updated on plan of care and expected duration. Pain ea level reassessed. Patient is alert, oriented x 3, equal unlabored respirations, skin warm/dry/pink. Discharge instruction given to patient, verbalized the understanding of instruction, pt left ED ambulatory accompanied by family. Vital Signs: 03:17 BP 123 / 80; Pulse 116; Resp 18; Temp 97.6; Pulse Ox 100% on R/A; Weight 58.97 kg; ea Height 5 ft. 6 in. (167.64 cm); 03:53 BP 120 / 76; Pulse 98; Resp 18; Pulse Ox 99% ; ea 03:17 Body Mass Index 20.98 (58.97 kg, 167.64 cm) ea ED Course: 03:11 Best Hugo MD is Attending Physician. rn 03:12 Patient arrived in ED. ag3 03:17 Norma Day, RN is Primary Nurse. ea 03:18 Triage completed. ea 03:18 Patient has correct armband on for positive identification. Bed in low position. Call ea light in reach. Side rails up X 1. 03:19 Arm band placed on right wrist. Patient placed in an exam room, on a stretcher, on ea pulse oximetry. 03:45 X-ray completed. Portable x-ray completed in exam room. Patient tolerated procedure kw well. 03:53 No provider procedures requiring assistance completed. Patient did not have IV access ea during this emergency room visit. 06:48 XRAY Chest (1 view) In Process Unspecified. EDMS Administered Medications: No medications were administered Outcome: 03:48 Discharge ordered by MD. rn 03:53 Discharged to home ambulatory, with family. ea 03:53 Condition: stable 03:53 Discharge instructions given to patient, Instructed on discharge instructions, follow up and referral plans. medication usage, Demonstrated understanding of instructions, follow-up care, medications, Prescriptions given X 1. 03:54 Patient left the ED. ea Signatures: Dispatcher [employer] EDMS Best Hugo MD MD rn Whitley, Kimberlee kw Norma Day RN RN Zoraida King ag3
--- NOTE | 2019-08-11 08:10 | RAD REPORT ---
EXAM DESCRIPTION: Len Single View08/11/2019 3:48 am CLINICAL HISTORY: Cough COMPARISON: January 2019 FINDINGS: 1 centimeter nodular opacity right base The left lung appears clear of acute infiltrate. The heart is normal size IMPRESSION: 1 centimeter nodular opacity right base may represent a nipple shadow or pulmonary nodul e. It is recommended patient have frontal and oblique views of the chest with a right nipple marker f or further evaluation
== END 2019-08-11 03:54 | disposition home or self-care (01) ==
LOC: ER 03:07
DX: N39.0 Urinary tract infection, site not specified (principal)
CPT/HCPCS: 71045; 81003; 81015; 87086; 87088; 99283

== ENCOUNTER 2019-08-25 10:14 | Emergency (ER) | payer SELFPAY ==
[2019-08-25 11:13] LABS: Urine Blood TRACE (NEG); Urine Glucose NEGATIVE (NEG); Urine Protein 1+ (NEG); Urine Specific Gravity >1.030 (1.005-1.030)
[2019-08-25] MEDS ORDERED: AZITHROMYCIN 250 MG TAB ONE (12:00)
[2019-08-25] MEDS ORDERED: WATER FOR INJ,STERILE 10 ML ONE (12:00)
[2019-08-25] MEDS ORDERED: DOXYCYCLINE 100 MG CAP PO ONE (12:00)
[2019-08-25] MEDS ORDERED: CEFTRIAXONE 250 MG/VIAL ONE (12:00)
--- NOTE | 2019-08-25 15:47 | ER ---
Nurse's Notes [facility] Name: Patti Crawford Age: 23 yrs Sex: Female : 1995 Arrival Date: 08/25/2019 Time: 10:20 Bed External Waiting Private MD: Diagnosis: Vaginal Discharge;Encounter for testing after STI exposure Presentation: 08/25 10:34 Presenting complaint: Patient states: I have been having lower abd pain, vaginal la1 discharge, and a partner of mine told me I need to be checked for gonorrhea. Transition of care: patient was not received from another setting of care. Onset of symptoms was August 25, 2019. Risk Assessment: Do you want to hurt yourself or someone else? Patient reports no desire to harm self or others. Initial Sepsis Screen: Does the patient meet any 2 criteria? HR > 90 bpm. Does the patient have a suspected source of infection? No. Patient's initial sepsis screen is negative. Care prior to arrival: None. 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 - Ebola Screening: : Patient negative for fever greater than or equal to 101.5 degrees Fahrenheit, and additional compatible Ebola Virus Disease symptoms Patient denies exposure to infectious person Patient denies travel to an Ebola-affected area in the 21 days before illness onset No symptoms or risks identified at this time. - Social history:: Smoking status: unknown. Screenin:15 Abuse screen: Denies threats or abuse. Denies injuries from another. Nutritional iw screening: No deficits noted. Tuberculosis screening: No symptoms or risk factors identified. Fall Risk None identified. Assessment: 11:45 General: Appears in no apparent distress. Behavior is calm, cooperative. Pain: iw Complains of pain in pelvis. Neuro: Level of Consciousness is awake, alert, obeys commands, Oriented to person, place, time, situation, Moves all extremities. Respiratory: Respiratory effort is even, unlabored, Respiratory pattern is regular. GI: Bowel sounds present X 4 quads. Abd is soft X 4 quads. : Reports discharge, from vagina that is. Derm: Skin is intact. Musculoskeletal: Range of motion: intact in all extremities. Vital Signs: 10:35 BP 137 / 74; Pulse 117; Resp 18; Temp 97.0; Pulse Ox 100% on R/A; Weight 63.5 kg; la1 Height 5 ft. 5 in. (165.10 cm); 10:35 Body Mass Index 23.30 (63.50 kg, 165.10 cm) la1 ED Course: 10:20 Patient arrived in ED. as 10:35 Triage completed. la1 10:35 Arm band placed on right wrist. la1 10:[address] [facility]C [facility]. kb 10:42 Best Hugo MD is Attending Physician. kb 11:45 Patient has correct armband on for positive identification. iw 12:07 Maribell Hubbard, RN is Primary Nurse. iw 12:15 No provider procedures requiring assistance completed. Patient did not have IV access iw during this emergency room visit. Administered Medications: No medications were administered Outcome: 11:52 Discharge ordered by MD. kb 12:16 Discharged to home ambulatory, with family. iw 12:16 Condition: good 12:16 Discharge instructions given to patient, family, Instructed on discharge instructions, follow up and referral plans. medication usage, Demonstrated understanding of instructions, follow-up care, medications, Prescriptions given X 1. 15:46 Patient left the ED. iw Signatures: April Lane FNP-C FNP-Terri Macias as Maribell Hubbard, RN RN iw Yevgeniy Hanson RN RN la1
--- NOTE | 2019-08-25 15:47 | EDPHYS ---
Physician Documentation [facility] Name: Patti Crawford Age: 23 yrs Sex: Female : 1995 Arrival Date: 08/25/2019 Time: 10:20 Bed External Waiting Private MD: ED Physician Best Hugo HPI: 08/25 11:42 This 23 yrs old Female presents to ER via Ambulatory with complaints of kb Abdominal Pain. 11:42 The patient presents with a possible exposure to a sexually transmitted disease, kb gonorrhea. Onset: The symptoms/episode began/occurred 2 week(s) ago. Modifying factors: The symptoms are alleviated by nothing, the symptoms are aggravated by nothing. Associated signs and symptoms: Pertinent positives: vaginal discharge. Severity of symptoms: At their worst the symptoms were moderate, in the emergency department the symptoms are unchanged. The patient has not experienced similar symptoms in the past. The patient has not recently seen a physician. Pt reports pressure to suprapubic area with yellow discharge for 2 weeks. Reports her significant other just told her she needed to get checked for gonorrhea because he had it and had to get antibiotics. . 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 - Ebola Screening: : Patient negative for fever greater than or equal to 101.5 degrees Fahrenheit, and additional compatible Ebola Virus Disease symptoms Patient denies exposure to infectious person Patient denies travel to an Ebola-affected area in the 21 days before illness onset No symptoms or risks identified at this time. - Social history:: Smoking status: unknown. ROS: 11:42 Constitutional: Negative for fever, chills, and weight loss, ENT: Negative for injury, kb pain, and discharge, Neck: Negative for injury, pain, and swelling, Cardiovascular: Negative for chest pain, palpitations, and edema, Respiratory: Negative for shortness of breath, cough, wheezing, and pleuritic chest pain, Back: Negative for injury and pain, MS/Extremity: Negative for injury and deformity, Skin: Negative for injury, rash, and discoloration, Neuro: Negative for headache, weakness, numbness, tingling, and seizure. 11:42 Abdomen/GI: Positive for abdominal pain. 11:42 : Positive for vaginal discharge. Exam: 11:42 Constitutional: This is a well developed, well nourished patient who is awake, alert, kb and in no acute distress. Head/Face: Normocephalic, atraumatic. Neck: Trachea midline, no thyromegaly or masses palpated, and no cervical lymphadenopathy. Supple, full range of motion without nuchal rigidity, or vertebral point tenderness. No Meningismus. Chest/axilla: Normal chest wall appearance and motion. Nontender with no deformity. No lesions are appreciated. Cardiovascular: Regular rate and rhythm with a normal S1 and S2. No gallops, murmurs, or rubs. Normal PMI, no JVD. No pulse deficits. Respiratory: Lungs have equal breath sounds bilaterally, clear to auscultation and percussion. No rales, rhonchi or wheezes noted. No increased work of breathing, no retractions or nasal flaring. Abdomen/GI: Soft, non-tender, with normal bowel sounds. No distension or tympany. No guarding or rebound. No evidence of tenderness throughout. Back: No spinal tenderness. No costovertebral tenderness. Full range of motion. Skin: Warm, dry with normal turgor. Normal color with no rashes, no lesions, and no evidence of cellulitis. MS/ Extremity: Pulses equal, no cyanosis. Neurovascular intact. Full, normal range of motion. Neuro: Awake and alert, GCS 15, oriented to person, place, time, and situation. Cranial nerves II-XII grossly intact. Motor strength 5/5 in all extremities. Sensory grossly intact. Cerebellar exam normal. Normal gait. Vital Signs: 10:35 BP 137 / 74; Pulse 117; Resp 18; Temp 97.0; Pulse Ox 100% on R/A; Weight 63.5 kg; la1 Height 5 ft. 5 in. (165.10 cm); 10:35 Body Mass Index 23.30 (63.50 kg, 165.10 cm) la1 MDM: 11:30 Patient medically screened. kb 11:42 Data reviewed: vital signs, nurses notes. Data interpreted: Pulse oximetry: on room air kb is 100 %. Interpretation: normal. Counseling: I had a detailed discussion with the patient and/or guardian regarding: the historical points, exam findings, and any diagnostic results supporting the discharge/admit diagnosis, lab results, the need for outpatient follow up, an OB/Gyne specialist, to return to the emergency department if symptoms worsen or persist or if there are any questions or concerns that arise at home. 08/25 15:45 Order name: Urine Dipstick-Ancillary; Complete Time: 15:46 EDMS Administered Medications: No medications were administered Disposition: 13:42 Co-signature as Attending Physician, Best Hugo MD. rn Disposition: 08/25/19 11:52 Discharged to Home. Impression: Vaginal Discharge, Encounter for testing after STI exposure. - Condition is Stable. - Discharge Instructions: Sexually Transmitted Disease, [id number]. - Prescriptions for Doxycycline Hyclate 100 mg Oral Tablet - take 1 tablet by ORAL route every 12 hours; 20 tablet. - Medication Reconciliation Form, Thank You Letter, Antibiotic Education, Prescription Opioid Use form. - Follow up: Emergency Department; When: As needed; Reason: Worsening of condition. Follow up: Private Physician; When: 2 - 3 days; Reason: Recheck today's complaints, Continuance of care, Re-evaluation by your physician. Signatures: April Lane, KIARA-C KIARA-Maribell Alicea, RN RN Best Gregg MD MD pattern illustrator: (The following items were deleted from the chart) 15:46 11:52 08/25/2019 11:52 Discharged to Home. Impression: Vaginal Discharge; Encounter for iw testing after STI exposure. Condition is Stable. Forms are Medication Reconciliation Form, Thank You Letter, Antibiotic Education, Prescription Opioid Use. Follow up: Emergency Department; When: As needed; Reason: Worsening of condition. Follow up: Private Physician; When: 2 - 3 days; Reason: Recheck today's complaints, Continuance of care, Re-evaluation by your physician. kb
[2019-08-25] MEDS ORDERED: LIDOCAINE VISCOUS 2% SOLN 15 ML UDC ONE (16:04)
[2019-08-25 17:26] VITALS: BP 137/74; TEMP 97; O2SAT 100
[2019-08-29 19:01] LABS: C.trachomatis RNA,TMA Detected (Not Detected)
== END 2019-08-25 15:46 | disposition home or self-care (01) ==
LOC: ER 10:14
DX: N89.8 Other specified noninflammatory disorders of vagina (principal); Z20.2 Contact with and (suspected) exposure to infections with a predominantly sexual mode of transmission
CPT/HCPCS: 81003; 87490; 87590; 99282; J0696

== ENCOUNTER 2020-01-20 16:33 | Emergency (ER) | payer SELFPAY ==
[2020-01-20] MEDS ORDERED: NA CHLORIDE 0.9% 1,000 ML ONE (16:56)
[2020-01-20] MEDS ORDERED: ONDANSETRON 4 MG/2 ML VIAL ONE (16:56)
[2020-01-20] MEDS ORDERED: MORPHINE 4 MG/ML SYR ONE (16:56)
[2020-01-20] MEDS ORDERED: FAMOTIDINE 20 MG/2 ML VIAL IV ONE (16:56)
[2020-01-20 17:06] LABS: Basophils % 0.5 % (0-1.3); Hematocrit 39.3 % (36.0-45.0); Lymphocytes % 39.6 % (15.3-44.8); MPV 8.8 fL (7.6-11.3); RBC Red Blood Cell Count 4.36 M/uL (3.86-4.86)
[2020-01-20 17:27] LABS: ALT/SGPT 17 U/L (12-78); AST/SGOT 19 U/L (15-37); Albumin 3.7 g/dL (3.4-5.0); Alkaline Phosphatase 92 U/L (45-117); BUN Blood Urea Nitrogen 22 mg/dL (7-18); Bicarbonate 25 mmol/L (21-32); Bilirubin Direct 0.2 mg/dL (0-0.2); Bilirubin Total 0.8 mg/dL (0.2-1.0); Glucose Level 76 mg/dL (74-106); Lipase 76 U/L (73-393); Protein, Total 7.9 g/dL (6.4-8.2); Sodium Level 140 mmol/L (136-145)
--- NOTE | 2020-01-20 17:59 | RAD REPORT ---
EXAM DESCRIPTION: CT - Abdomen Pelvis W Contrast - 01/20/2020 5:47 pm CLINICAL HISTORY: ABD PAIN COMPARISON: Abdomen Pelvis W Contrast dated 01/28/2019; Abdomen Pelvis W Contrast dated 01/17/2019 TECHNIQUE: Biphasic, helical CT imaging of the abdomen and pelvis was performed following 100 ml non -ionic IV contrast. No oral contrast. All CT scans are performed using dose optimization technique as appropriate and may include automated exposure control or mA/KV adjustment according to patient size. FINDINGS: No suspicious findings in the lung bases. The liver, spleen, and pancreas show no suspicious findings. Gallbladder and biliary tree are also wi thout suspicious finding. Symmetric renal function is seen with no hydronephrosis or suspicious renal mass. No pyelonephritis o r acute parenchymal process. No bladder abnormalities. No adrenal abnormalities. No uterine abnormali ty. IUD is well positioned. No ovarian abnormality suspected. Ovaries are not optimally visualized du e to prominence of bowel. No gastric dilatation or wall thickening. No dilated small bowel loops. The appendix is normal. A few small mesenteric lymph nodes are present. Patient has a very large amount of stool in the colon. Rec yudelka is dilated to nearly 10 cm. Large amount of stool distends the entirety of the colon. A focal col on wall mass or focal colon wall thickening not identified. No free air, free fluid or inflammatory stranding. No hernia, mass or bulky lymphadenopathy. No suspicious bony findings. IMPRESSION: Large amount of stool is present distending the colon from cecum to sigmoid colon with s tool dilating the rectum to 10 cm. No acute stomach or small bowel finding. No free air or emergent finding.
[2020-01-20] MEDS ORDERED: BISACODYL E.C. 5 MG TAB PO ONE (19:13)
[2020-01-20] MEDS ORDERED: MAGNESIUM CITRATE 300 ML BOT ONE (19:14)
[2020-01-20 23:00] LABS: Urine Blood NEGATIVE (NEG); Urine Glucose NEGATIVE (NEG); Urine Protein NEGATIVE (NEG); Urine Specific Gravity 1.025 (1.005-1.030)
--- NOTE | 2020-01-20 23:14 | ER ---
Nurse's Notes [facility] Name: Patti Crawford Age: 24 yrs Sex: Female : 1995 Arrival Date: 01/20/2020 Time: 16:35 Bed 18 Private MD: Diagnosis: Abdominal and pelvic pain;Constipation Presentation: 01/20 16:37 Presenting complaint: Patient states: abd pain/bloating, n/v x 2 days. Reports having a sv colon infection last month and thinks it may be back. Transition of care: patient was not received from another setting of care. Onset of symptoms was January 18, 2020. Care prior to arrival: None. 16:37 Method Of Arrival: Ambulatory sv 16:37 Acuity: HEYDI 2 sv 16:39 Initial Sepsis Screen: Does the patient meet any 2 criteria? HR > 90 bpm. No. Patient's sv initial sepsis screen is negative. Does the patient have a suspected source of infection? Yes: Acute abdominal pain. 18:08 Risk Assessment: Do you want to hurt yourself or someone else? Patient reports no tw2 desire to harm self or others. 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 tw2 Historical: - Allergies: 16:38 No Known Drug Allergies; sv - PMHx: 16:38 None; sv - PSHx: 16:38 None; sv - Immunization history:: Adult Immunizations up to date. - Coronavirus screen:: The patient has NOT traveled to [place] in the past 14 days. Proceed with normal triage process as indicated. The patient has NOT had contact with known/suspected case of Coronavirus? Proceed with normal triage procedures. - Social history:: Smoking status: . - Ebola Screening: : No symptoms or risks identified at this time. Screenin:28 Abuse screen: Denies threats or abuse. Nutritional screening: No deficits noted. tw2 Tuberculosis screening: No symptoms or risk factors identified. Fall Risk None identified. Assessment: 16:45 General: Appears uncomfortable, slender, Behavior is crying. Pain: Complains of pain in tw2 abdomen. Neuro: Level of Consciousness is awake, alert, obeys commands, Oriented to person, place, time, situation. Cardiovascular: Heart tones S1 S2 Patient's skin is warm and dry. Respiratory: Airway is patent Respiratory effort is even, unlabored, Respiratory pattern is regular, symmetrical, Breath sounds are clear bilaterally. GI: Abdomen is flat, Bowel sounds present X 4 quads. Abd is soft X 4 quads Reports lower abdominal pain, upper abdominal pain, bloating, intolerance of fluids, intolerance of food, nausea. : No signs and/or symptoms were reported regarding the genitourinary system. EENT: No signs and/or symptoms were reported regarding the EENT system. Derm: No signs and/or symptoms reported regarding the dermatologic system. Musculoskeletal: Range of motion: intact in all extremities. 17:27 Reassessment: Patient appears in no apparent distress at this time. Patient and/or tw2 family updated on plan of care and expected duration. Pain level reassessed. Patient is alert, oriented x 3, equal unlabored respirations, skin warm/dry/pink. 18:22 Reassessment: Patient appears in no apparent distress at this time. No changes from tw2 previously documented assessment. Patient and/or family updated on plan of care and expected duration. Pain level reassessed. Patient is alert, oriented x 3, equal unlabored respirations, skin warm/dry/pink. 18:54 Reassessment: pt tolerated PO challenge at this time, nad, no change it pts condition. tw2 Vital Signs: 16:38 BP 131 / 84; Pulse 108; Resp 20; Temp 97.8; Pulse Ox 100% ; Weight 63.5 kg; Height 5 sv ft. 5 in. (165.10 cm); Pain 10/10; 17:26 BP 118 / 73; Pulse 89; Resp 17; Pulse Ox 98% on R/A; tw2 18:21 BP 109 / 91; Pulse 99; Resp 17; Pulse Ox 100% on R/A; tw2 19:25 BP 110 / 90; Pulse 90; Resp 18; Temp 98; Pulse Ox 100% on R/A; mg2 16:38 Body Mass Index 23.30 (63.50 kg, 165.10 cm) sv ED Course: 16:35 Patient arrived in ED. rg4 16:36 Arm band placed on. sv 16:38 Triage completed. sv 16:40 Sam Yoon MD is Attending Physician. kdr 16:40 Bed in low position. Call light in reach. Adult w/ patient. Pulse ox on. NIBP on. Warm tw2 blanket given. 16:41 Lizeth Schroeder, RN is Primary Nurse. tw2 18:15 Served as a cro during rectal exam. tw2 19:00 outstanding is PO medications ordered at 1858 by provider. tw2 19:23 IV discontinued, intact, bleeding controlled, No redness/swelling at site. Pressure mg2 dressing applied. Administered Medications: 16:56 Drug: Zofran 4 mg Route: IVP; Site: right antecubital; tw2 17:54 Follow up: Response: No adverse reaction tw2 16:58 Drug: morphine 4 mg Route: IVP; Site: right antecubital; tw2 17:54 Follow up: Response: No adverse reaction tw2 17:01 Drug: NS 0.9% 1000 ml Route: IV; Rate: 1 bolus; Site: right antecubital; tw2 18:20 Follow up: Response: No adverse reaction; IV Status: Completed infusion; IV Intake: tw2 1000ml 17:01 Drug: Pepcid 20 mg Route: IVP; Site: right antecubital; tw2 17:53 Follow up: Response: No adverse reaction tw2 19:16 Drug: Dulcolax Delayed Release Tablet 5 mg Route: PO; mg2 19:17 Follow up: Response: No adverse reaction; Medication administered at discharge. mg2 19:17 Drug: Magnesium Citrate Liquid 300 ml Route: PO; mg2 19:17 Follow up: Response: No adverse reaction; Medication administered at discharge. mg2 Intake: 18:20 IV: 1000ml; Total: 1000ml. tw2 Outcome: 19:02 Discharge ordered by . kdr 19:24 Patient left the ED. hb 19:24 Discharged to home ambulatory, with family. mg2 19:24 Condition: stable 19:24 Discharge instructions given to patient, family, Instructed on discharge instructions, follow up and referral plans. medication usage, Demonstrated understanding of instructions, follow-up care, medications, Prescriptions given X 2. Signatures: Ranjana Fairchild RN RN sv Rittger, Kevin, MD MD kdr Baxter, Heather, RN RN Lizeth Schroeder RN RN 2 Shelby Licea 4 Singh Low RN RN mg2 Corrections: (The following items were deleted from the chart) 16:39 16:37 Presenting complaint: Patient states: abd pain, n/v x 2 days. Reports having a sv colon infection last month and thinks it may be back. sv 16:39 16:37 Acuity: HEYDI 3 sv sv 18:55 17:27 Reassessment: Patient appears in no apparent distress at this time. No changes tw2 from previously documented assessment. Patient and/or family updated on plan of care and expected duration. Pain level reassessed. Patient is alert, oriented x 3, equal unlabored respirations, skin warm/dry/pink. tw2
--- NOTE | 2020-01-20 23:14 | EDPHYS ---
Physician Documentation [facility] Name: Patti Crawford Age: 24 yrs Sex: Female : 1995 Arrival Date: 01/20/2020 Time: 16:35 Bed 18 Private MD: ED Physician Sam Yoon HPI: 01/21 07:30 This 24 yrs old Female presents to ER via Ambulatory with complaints of kdr Abdominal Pain. 07:30 The patient presents with abdominal pain in the epigastric area, in the upper abdomen. kdr Onset: The symptoms/episode began/occurred gradually, 2 day(s) ago. The symptoms do not radiate. Associated signs and symptoms: Pertinent positives: nausea and vomiting, diarrhea, States that she had a small amount of diarrhea yesterday but denies any issues with constipation.. The symptoms are described as crampy, vague, waxing/waning. Modifying factors: The symptoms are alleviated by nothing, the symptoms are aggravated by drinking, food. Severity of pain: At its worst the pain was moderate in the emergency department the pain is unchanged. The patient has not experienced similar symptoms in the past. The patient has not recently seen a physician. 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 tw2 Historical: - Allergies: 16:38 No Known Drug Allergies; sv - PMHx: 16:38 None; sv - PSHx: 16:38 None; sv - Immunization history:: Adult Immunizations up to date. - Coronavirus screen:: The patient has NOT traveled to [place] in the past 14 days. Proceed with normal triage process as indicated. The patient has NOT had contact with known/suspected case of Coronavirus? Proceed with normal triage procedures. - Social history:: Smoking status: . - Ebola Screening: : No symptoms or risks identified at this time. ROS: 01/21 07:30 Constitutional: Negative for fever, chills, and weight loss, Eyes: Negative for injury, kdr pain, redness, and discharge, Neck: Negative for injury, pain, and swelling, Cardiovascular: Negative for chest pain, palpitations, and edema, Respiratory: Negative for shortness of breath, cough, wheezing, and pleuritic chest pain, Back: Negative for injury and pain, : Negative for injury, bleeding, discharge, and swelling, MS/Extremity: Negative for injury and deformity, Skin: Negative for injury, rash, and discoloration, Neuro: Negative for headache, weakness, numbness, tingling, and seizure activity. Psych: Negative for depression, anxiety, suicide ideation, homicidal ideation, and hallucinations, Allergy/Immunology: Negative for hives, rash, and allergies, Endocrine: Negative for neck swelling, polydipsia, polyuria, polyphagia, and marked weight changes, Hematologic/Lymphatic: Negative for swollen nodes, abnormal bleeding, and unusual bruising. Abdomen/GI: Positive for abdominal pain, nausea and vomiting, diarrhea, Negative for constipation, dysphagia, hematemesis, black/tarry stool, rectal pain, rectal bleeding. Exam: 07:30 Constitutional: This is a well developed, well nourished patient who is awake, alert, kdr and in no acute distress. Head/Face: Normocephalic, atraumatic. Eyes: Pupils equal round and reactive to light, extra-ocular motions intact. Lids and lashes normal. Conjunctiva and sclera are non-icteric and not injected. Cornea within normal limits. Periorbital areas with no swelling, redness, or edema. Neck: Trachea midline, no thyromegaly or masses palpated, and no cervical lymphadenopathy. Supple, full range of motion without nuchal rigidity, or vertebral point tenderness. No Meningismus. Chest/axilla: Normal chest wall appearance and motion. Nontender with no deformity. No lesions are appreciated. Cardiovascular: Regular rate and rhythm with a normal S1 and S2. No gallops, murmurs, or rubs. Normal PMI, no JVD. No pulse deficits. Respiratory: Lungs have equal breath sounds bilaterally, clear to auscultation and percussion. No rales, rhonchi or wheezes noted. No increased work of breathing, no retractions or nasal flaring. Back: No spinal tenderness. No costovertebral tenderness. Full range of motion. Skin: Warm, dry with normal turgor. Normal color with no rashes, no lesions, and no evidence of cellulitis. MS/ Extremity: Pulses equal, no cyanosis. Neurovascular intact. Full, normal range of motion. Neuro: Awake and alert, GCS 15, oriented to person, place, time, and situation. Cranial nerves II-XII grossly intact. Motor strength 5/5 in all extremities. Sensory grossly intact. Cerebellar exam normal. Normal gait. Psych: Awake, alert, with orientation to person, place and time. Behavior, mood, and affect are within normal limits. 07:30 Abdomen/GI: Inspection: abdomen appears normal, Bowel sounds: active, all quadrants, Palpation: soft, mild abdominal tenderness, in all quadrants, Rectal exam: rectal tone normal, hemorrhoid(s), are not appreciated, mass, is not appreciated, swelling, is not appreciated, tenderness, is not appreciated, fecal impaction, is not appreciated. Vital Signs: 01/20 16:38 BP 131 / 84; Pulse 108; Resp 20; Temp 97.8; Pulse Ox 100% ; Weight 63.5 kg; Height 5 sv ft. 5 in. (165.10 cm); Pain 10/10; 17:26 BP 118 / 73; Pulse 89; Resp 17; Pulse Ox 98% on R/A; tw2 18:21 BP 109 / 91; Pulse 99; Resp 17; Pulse Ox 100% on R/A; tw2 19:25 BP 110 / 90; Pulse 90; Resp 18; Temp 98; Pulse Ox 100% on R/A; mg2 16:38 Body Mass Index 23.30 (63.50 kg, 165.10 cm) sv MDM: 19:02 Patient medically screened. [facility] 01/21 07:30 Data reviewed: vital signs, nurses notes, lab test result(s), radiologic studies. kdr Counseling: I had a detailed discussion with the patient and/or guardian regarding: the historical points, exam findings, and any diagnostic results supporting the discharge/admit diagnosis, lab results, radiology results, the need for outpatient follow up. ED course: The patient was feeling somewhat better at time of discharge and was taking PO.. 01/20 16:41 Order name: Basic Metabolic Panel [facility] 01/20 16:41 Order name: CBC with Diff [facility] 01/20 16:41 Order name: Creatinine for Radiology [facility] 01/20 16:41 Order name: Hepatic Function [facility] 01/20 16:41 Order name: Lipase [facility] 01/20 18:08 Order name: Urine Dipstick--Ancillary (enter results) 01/20 16:50 Order name: CT Abd/Pelvis - IV Contrast Only [facility] 01/20 18:08 Order name: Urine --Ancillary (enter results) 01/20 16:41 Order name: IV Saline Lock; Complete Time: 16:52 kdr 01/20 16:41 Order name: Labs collected and sent; Complete Time: 16:52 kdr 01/20 17:33 Order name: Urine Dipstick-Ancillary (obtain specimen); Complete Time: 18:54 bd Administered Medications: 01/20 16:56 Drug: Zofran 4 mg Route: IVP; Site: right antecubital; tw2 17:54 Follow up: Response: No adverse reaction tw2 16:58 Drug: morphine 4 mg Route: IVP; Site: right antecubital; tw2 17:54 Follow up: Response: No adverse reaction tw2 17:01 Drug: NS 0.9% 1000 ml Route: IV; Rate: 1 bolus; Site: right antecubital; tw2 18:20 Follow up: Response: No adverse reaction; IV Status: Completed infusion; IV Intake: tw2 1000ml 17:01 Drug: Pepcid 20 mg Route: IVP; Site: right antecubital; tw2 17:53 Follow up: Response: No adverse reaction tw2 19:16 Drug: Dulcolax Delayed Release Tablet 5 mg Route: PO; mg2 19:17 Follow up: Response: No adverse reaction; Medication administered at discharge. mg2 19:17 Drug: Magnesium Citrate Liquid 300 ml Route: PO; mg2 19:17 Follow up: Response: No adverse reaction; Medication administered at discharge. mg2 Disposition: 01/20/20 19:02 Discharged to Home. Impression: Abdominal and pelvic pain, Constipation. - Condition is Fair. - Discharge Instructions: Constipation, Adult, [id number], Abdominal Pain, Adult, [id number]. - Prescriptions for magnesium citrate - take 1 bottle by ORAL route 2-3 times daily As needed; 3 bottle. Miralax 17 gram/dose Oral - take 1 packet by ORAL route once daily dilute powder in 8 ounces of water or juice; 1 box. promethazine 25 mg Oral Tablet - take 1 tablet by ORAL route every 6 hours As needed; 20 tablet. - Medication Reconciliation Form, Thank You Letter form. - Follow up: Private Physician; When: 2 - 3 days; Reason: If symptoms return, Further diagnostic work-up, Recheck today's complaints, Continuance of care, Re-evaluation by your physician. - Problem is new. - Symptoms have improved. Signatures: Dispatcher [employer] EDMS Kriss Johnson Ranjana Simmons, RN RN Sam Yoon MD MD kdr Jess Jacobson RN RN Lizeth Schroeder RN RN tw2 Singh Low, RN RN mg2 Corrections: (The following items were deleted from the chart) 19:24 19:02 01/20/2020 19:02 Discharged to Home. Impression: Abdominal and pelvic pain; hb Constipation. Condition is Fair. Forms are Medication Reconciliation Form, Thank You Letter, Antibiotic Education, Prescription Opioid Use. Follow up: Private Physician; When: 2 - 3 days; Reason: If symptoms return, Further diagnostic work-up, Recheck today's complaints, Continuance of care, Re-evaluation by your physician. Problem is new. Symptoms have improved. kdr
[2020-01-21 00:38] VITALS: O2SAT 100
[2020-01-21 00:39] VITALS: BP 110/90; TEMP 98
== END 2020-01-20 19:24 | disposition home or self-care (01) ==
LOC: ER 16:33
DX: K59.00 Constipation, unspecified (principal)
CPT/HCPCS: 36415; 74177; 80048; 80076; 81003; 81025; 83690; 85025; 96361; 96374; 96375; 99284; J2405; J7030; Q9967

== ENCOUNTER 2020-07-24 21:48 | Emergency (ER) | payer SELFPAY ==
[2020-07-24 22:14] LABS: Absolute Lymphocytes (CBC) 3.3 K/uL (0.7-4.9); Basophils % 0.6 % (0-1.3); Hematocrit 40.9 % (36.0-45.0); Lymphocytes % 44.5 % (15.3-44.8); MPV 8.7 fL (7.6-11.3); RBC Red Blood Cell Count 4.44 M/uL (3.86-4.86)
[2020-07-24 22:15] LABS: Protime INR 1.1
[2020-07-24 22:24] LABS: ALT/SGPT 22 U/L (12-78); AST/SGOT 22 U/L (15-37); Albumin 3.6 g/dL (3.4-5.0); Alkaline Phosphatase 70 U/L (45-117); BUN Blood Urea Nitrogen 13 mg/dL (7-18); Bicarbonate 19 mmol/L (21-32); Bilirubin Direct 0.1 mg/dL (0-0.2); Bilirubin Total 0.7 mg/dL (0.2-1.0); Glucose Level 196 mg/dL (74-106); Potassium 3.5 mmol/L (3.5-5.1); Protein, Total 7.5 g/dL (6.4-8.2); Sodium Level 138 mmol/L (136-145)
[2020-07-24] MEDS ORDERED: NA CHLORIDE 0.9% 1,000 ML ONE (22:57)
[2020-07-25 01:04] LABS: Barbiturates NEGATIVE (NEGATIVE); Benzodiazepines POSITIVE (NEGATIVE); Cocaine NEGATIVE (NEGATIVE); METHAMPHETAM POSITIVE (NEGATIVE); Methadone NEGATIVE (NEGATIVE); Opiates NEGATIVE (NEGATIVE); Phencyclidine NEGATIVE (NEGATIVE); THC Cannibis POSITIVE (NEGATIVE)
--- NOTE | 2020-07-25 02:03 | EDPHYS ---
Physician Documentation [facility] Name: Patti Crawford Age: 24 yrs Sex: Female : 1995 Arrival Date: 07/24/2020 Time: 21:49 Bed 3 Private MD: ED Physician Shine Lei HPI: 07/24 22:32 This 24 yrs old Female presents to ER via EMS with complaints of Overdose. mh7 22:32 The patient presents to the emergency department after a known overdose, that was mh7 accidental, a result of recreational substance abuse. Context: Method: the patient has a confirmed or suspected inhalation, of heroin/opium, Time: today, Extent: moderate exposure, the OD/poisoning occurred at. 22:33 Context: the OD/poisoning occurred at at a friend's home, and was witnessed by a mh7 friend, Psychiatric history: none, Previous OD/poisoning history: none. Associated signs and symptoms: Pertinent positives: loss of consciousness, Pertinent negatives: anxiety, auditory hallucinations, burning of skin, depression, diaphoresis, diarrhea, dizziness, incontinence, nausea, palpitations, shortness of breath, tearfulness, visual hallucinations, vomiting. Severity of symptoms: At their worst the symptoms were severe today, in the emergency department the symptoms have resolved after treatment by EMS personnel. According to EMS patient was unresponsive after snorting heroin. They gave Narcan and patient became responsive. She admits to heroin use today. She denies any suicidal or homicidal ideation. She denies any auditory or visual hallucinations. She denies any headache, chest pain, abdominal pain, SOB, nausea, vomiting, numbness/tingling, or weakness.. 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 - Social history:: Smoking status: Patient reports the use of cigarette tobacco products, denies chronic smoking, but will smoke occasionally, Patient uses street drugs, Patient/guardian denies using alcohol. ROS: 22:33 Constitutional: Negative for fever, chills, and weight loss, Eyes: Negative for injury, mh7 pain, redness, and discharge, ENT: Negative for injury, pain, and discharge, Neck: Negative for injury, pain, and swelling, Cardiovascular: Negative for chest pain, palpitations, and edema, Respiratory: Negative for shortness of breath, cough, wheezing, and pleuritic chest pain, Abdomen/GI: Negative for abdominal pain, nausea, vomiting, diarrhea, and constipation, Back: Negative for injury and pain, : Negative for injury, bleeding, discharge, and swelling, MS/Extremity: Negative for injury and deformity, Skin: Negative for injury, rash, and discoloration, Neuro: Negative for headache, weakness, numbness, tingling, and seizure, Psych: Negative for depression, anxiety, suicide ideation, homicidal ideation, and hallucinations, Allergy/Immunology: Negative for hives, rash, and allergies, Endocrine: Negative for neck swelling, polydipsia, polyuria, polyphagia, and marked weight changes, Hematologic/Lymphatic: Negative for swollen nodes, abnormal bleeding, and unusual bruising. Exam: 22:33 Head/Face: Normocephalic, atraumatic. Eyes: Pupils equal round and reactive to light, mh7 extra-ocular motions intact. Lids and lashes normal. Conjunctiva and sclera are non-icteric and not injected. Cornea within normal limits. Periorbital areas with no swelling, redness, or edema. ENT: Nares patent. No nasal discharge, no septal abnormalities noted. Tympanic membranes are normal and external auditory canals are clear. Oropharynx with no redness, swelling, or masses, exudates, or evidence of obstruction, uvula midline. Mucous membranes moist. Neck: Trachea midline, no thyromegaly or masses palpated, and no cervical lymphadenopathy. Supple, full range of motion without nuchal rigidity, or vertebral point tenderness. No Meningismus. Chest/axilla: Normal chest wall appearance and motion. Nontender with no deformity. No lesions are appreciated. Cardiovascular: Regular rate and rhythm with a normal S1 and S2. No gallops, murmurs, or rubs. Normal PMI, no JVD. No pulse deficits. Respiratory: Lungs have equal breath sounds bilaterally, clear to auscultation and percussion. No rales, rhonchi or wheezes noted. No increased work of breathing, no retractions or nasal flaring. Abdomen/GI: Soft, non-tender, with normal bowel sounds. No distension or tympany. No guarding or rebound. No evidence of tenderness throughout. Back: No spinal tenderness. No costovertebral tenderness. Full range of motion. Skin: Warm, dry with normal turgor. Normal color with no rashes, no lesions, and no evidence of cellulitis. MS/ Extremity: Pulses equal, no cyanosis. Neurovascular intact. Full, normal range of motion. Neuro: Awake and alert, GCS 15, oriented to person, place, time, and situation. Cranial nerves II-XII grossly intact. Motor strength 5/5 in all extremities. Sensory grossly intact. Cerebellar exam normal. Normal gait. Psych: Awake, alert, with orientation to person, place and time. Behavior, mood, and affect are within normal limits. 22:33 Constitutional: The patient appears in no acute distress, alert, awake, anxious. Vital Signs: 21:53 BP 143 / 105; Pulse 73; Resp 14 S; Pulse Ox 100% on R/A; Weight 63.5 kg (R); Height 5 bb ft. 5 in. (165.10 cm) (R); Pain 0/10; 21:53 Temp 97.1(A); bb 23:16 BP 103 / 77; Pulse 97; Resp 17; Pulse Ox 100% on R/A; rv 07/25 00:15 BP 109 / 83; Pulse 84; Resp 16; Pulse Ox 99% ; rr5 01:00 BP 99 / 62; Pulse 75; Resp 17; Pulse Ox 98% ; rr5 02:14 BP 102 / 66; Pulse 80; Resp 19; Pulse Ox 99% ; rr5 07/24 21:53 Body Mass Index 23.30 (63.50 kg, 165.10 cm) bb [place] Coma Score: 07/24 23:17 Eye Response: spontaneous(4). Verbal Response: oriented(5). Motor Response: obeys rv commands(6). Total: 15. MDM: 22:05 Patient medically screened. [facility] 07/25 02:00 Differential diagnosis: polypharmacy, over medication, hypoglycemia, Substance Abuse. [facility] Data reviewed: vital signs, nurses notes, EMS record, lab test result(s), CBC, drug level(s), electrolytes, urinalysis, urine drug screen, UPT: EKG. Data interpreted: Pulse oximetry: on room air is 99 %. Interpretation: normal. Counseling: I had a detailed discussion with the patient and/or guardian regarding: the historical points, exam findings, and any diagnostic results supporting the discharge/admit diagnosis, lab results, the need for outpatient follow up, to return to the emergency department if symptoms worsen or persist or if there are any questions or concerns that arise at home. Counseling: I had a detailed discussion with the patient and/or guardian regarding: Stop Substance Abuse. Response to treatment: the patient's symptoms have resolved after treatment, the patient's blood pressure is in an acceptable range, mental status has returned to baseline, the patient no longer shows bradycardia, the patient is not short of breath, the patient is not tachycardic, the patient's pain is gone, the patient's temperature has normalized, the patient is now symptom free, patient is well hydrated. 07/24 21:53 Order name: Acetaminophen 07/24 21:53 Order name: Basic Metabolic Panel 07/24 21:53 Order name: CBC with Diff; Complete Time: 23: 07/24 21:53 Order name: ETOH Level; Complete Time: 23:07/24 21:53 Order name: Hepatic Function; Complete Time: : 07/24 21:53 Order name: PT-INR; Complete Time: :07/24 21:53 Order name: Ptt, Activated; Complete Time: :07/24 21:53 Order name: Salicylate; Complete Time: 23: 07/24 21:53 Order name: Urine Drug Screen; Complete Time: 01: 07/24 21:53 Order name: EKG; Complete Time: 21:54 07/24 21:53 Order name: EKG - Nurse/Tech; Complete Time: 21:53 07/24 21:53 Order name: Acetaminophen Level; Complete Time: 23: [facility] 07/24 21:53 Order name: Basic Metabolic Panel; Complete Time: 23: [facility] 07/24 21:53 Order name: IV Saline Lock; Complete Time: 21:53 07/24 21:53 Order name: Labs collected and sent; Complete Time: 21:53 07/24 21:53 Order name: Urine Dipstick-Ancillary (obtain specimen); Complete Time: :07/24 22:05 Order name: Urine Test (obtain specimen); Complete Time: :21 [facility] Administered Medications: 07/24 23:14 Drug: NS 0.9% 1000 ml Route: IV; Rate: 1 bolus; Site: right hand; rv 07/25 00:30 Follow up: Response: No adverse reaction; IV Status: Completed infusion; IV Intake: rr5 1000ml 01:23 Follow up: IV Status: Completed infusion; IV Intake: 1000ml rv Disposition: 07:03 Co-signature as Attending Physician, Shine Lei MD. mh7 Disposition: 07/25/20 02:03 Discharged to Home. Impression: Polysubstance Abuse. - Condition is Stable. - Discharge Instructions: Cannabis Use Disorder, Substance Use Disorder, Stimulant Use Disorder-Methamphetamines. - Medication Reconciliation Form, Thank You Letter, Antibiotic Education, Prescription Opioid Use form. - Follow up: Private Physician; When: 1 - 2 days; Reason: Worsening of condition, Recheck today's complaints, Continuance of care, Re-evaluation by your physician. - Problem is an acute exacerbation. - Symptoms have improved. Signatures: Dispatcher [employer] EDMS Joaquina Truong RN RN bb Tim Wilder RN RN rv James Hobbs RN RN rr5 Shine Lei MD MD mh7 Corrections: (The following items were deleted from the chart) 02:18 02:03 07/25/2020 02:03 Discharged to Home. Impression: Polysubstance Abuse. Condition rr5 is Stable. Forms are Medication Reconciliation Form, Thank You Letter, Antibiotic Education, Prescription Opioid Use. Follow up: Private Physician; When: 1 - 2 days; Reason: Worsening of condition, Recheck today's complaints, Continuance of care, Re-evaluation by your physician. Problem is an acute exacerbation. Symptoms have improved. mh7
--- NOTE | 2020-07-25 02:03 | ER ---
Nurse's Notes [facility] Name: Patti Crawford Age: 24 yrs Sex: Female : 1995 Arrival Date: 07/24/2020 Time: 21:49 Bed 3 Private MD: Diagnosis: Polysubstance Abuse Presentation: 07/24 21:53 Chief complaint: EMS states: they were toned out for report of pt unresponsive after bb snorting heroin on arrival pt was unresponsive with resp rate of 4, cyanotic, SPO2 34%. They administered Narcan x 3. Coronavirus screen: At this time, the client does not indicate any symptoms associated with coronavirus-19. Ebola Screen: No symptoms or risks identified at this time. Initial Sepsis Screen: Does the patient meet any 2 criteria? No. Patient's initial sepsis screen is negative. Does the patient have a suspected source of infection? No. Patient's initial sepsis screen is negative. Risk Assessment: Do you want to hurt yourself or someone else? Patient reports no desire to harm self or others. Onset of symptoms was July 24, 2020. 21:53 Method Of Arrival: EMS: [facility] 21:53 Acuity: HEYDI 2 bb Triage Assessment: 21:58 General: Appears uncomfortable, unkempt, Behavior is agitated, anxious. Pain: Denies bb pain. Neuro: Level of Consciousness is awake, alert, obeys commands, Oriented to person, place, situation. Respiratory: Airway is patent Respiratory effort is even, unlabored, Respiratory pattern is regular. 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 - Social history:: Smoking status: Patient reports the use of cigarette tobacco products, denies chronic smoking, but will smoke occasionally, Patient uses street drugs, Patient/guardian denies using alcohol. Screenin:41 Abuse screen: Denies threats or abuse. Denies injuries from another. Nutritional rv screening: No deficits noted. Tuberculosis screening: No symptoms or risk factors identified. Fall Risk None identified. Assessment: 22:15 General: Appears comfortable, Behavior is cooperative, crying. rv 22:15 Pain: Denies pain. Neuro: Level of Consciousness is awake, alert, obeys commands, rv Oriented to person, place, time, situation, Moves all extremities. Full function Pupils are PERRLA. Cardiovascular: Patient's skin is warm and dry. Rhythm is sinus rhythm. Respiratory: Airway is patent Respiratory effort is even, unlabored, Respiratory pattern is regular, symmetrical, Breath sounds are clear bilaterally. Derm: Skin is intact. 23:40 Reassessment: Patient appears in no apparent distress at this time. awaiting for rr5 results. 07/25 00:10 Reassessment: Patient appears in no apparent distress at this time. patient awake rr5 assisted going to bedside commode for the urine UDS. vitally stable. 01:30 Reassessment: Patient appears in no apparent distress at this time. Patient is alert, rr5 oriented x 3, equal unlabored respirations, skin warm/dry/pink. resting eyes closed breathing spontaneously at room air. 02:15 Reassessment: Patient appears in no apparent distress at this time. Patient is alert, rr5 oriented x 3, equal unlabored respirations, skin warm/dry/pink. discharge instruction given and explained without complaints made. ambulatory able to walk, steady gait noted. Vital Signs: 07/24 21:53 BP 143 / 105; Pulse 73; Resp 14 S; Pulse Ox 100% on R/A; Weight 63.5 kg (R); Height 5 bb ft. 5 in. (165.10 cm) (R); Pain 0/10; 21:53 Temp 97.1(A); bb 23:16 BP 103 / 77; Pulse 97; Resp 17; Pulse Ox 100% on R/A; rv 07/25 00:15 BP 109 / 83; Pulse 84; Resp 16; Pulse Ox 99% ; rr5 01:00 BP 99 / 62; Pulse 75; Resp 17; Pulse Ox 98% ; rr5 02:14 BP 102 / 66; Pulse 80; Resp 19; Pulse Ox 99% ; rr5 07/24 21:53 Body Mass Index 23.30 (63.50 kg, 165.10 cm) bb [place] Coma Score: 07/24 23:17 Eye Response: spontaneous(4). Verbal Response: oriented(5). Motor Response: obeys rv commands(6). Total: 15. ED Course: 21:49 Patient arrived in ED. cf2 21:57 Shine Lei MD is Attending Physician. [facility] 21:57 Triage completed. bb 21:58 Arm band placed on. bb 22:22 James Hobbs, RN is Primary Nurse. rr5 22:41 Patient has correct armband on for positive identification. threat monitoring analyst on. Pulse rv ox on. NIBP on. 22:41 Maintain EMS IV. Dressing intact. Good blood return noted. Site clean \T\ dry. Gauge \T\ rv site: g20 right hand. 07/25 00:39 Straight cath inserted, using sterile technique, 16 Fr. Specimen obtained. Patient bb tolerated well. 02:17 No provider procedures requiring assistance completed. IV discontinued, intact, rr5 bleeding controlled, No redness/swelling at site. Pressure dressing applied. Administered Medications: 07/24 23:14 Drug: NS 0.9% 1000 ml Route: IV; Rate: 1 bolus; Site: right hand; rv 07/25 00:30 Follow up: Response: No adverse reaction; IV Status: Completed infusion; IV Intake: rr5 1000ml 01:23 Follow up: IV Status: Completed infusion; IV Intake: 1000ml rv Intake: 00:30 IV: 1000ml; Total: 1000ml. rr5 01:23 IV: 1000ml; Total: 2000ml. rv Outcome: 02:03 Discharge ordered by . [facility] 02:17 Discharged to home ambulatory. rr5 02:17 Condition: stable 02:17 Discharge instructions given to patient, Instructed on discharge instructions, follow up and referral plans. Demonstrated understanding of instructions, follow-up care. 02:18 Patient left the ED. rr5 Signatures: Joaquina Truong RN RN bb Tim Wilder RN RN rv James Hobbs, RN RN rr5 William Adam cf2 Shine Lei MD MD [facility] Corrections: (The following items were deleted from the chart) 07/24 22:42 22:15 Neuro: Level of Consciousness is awake, alert, obeys commands, Oriented to rv person, place, time, situation, rv
[2020-07-28 10:29] VITALS: TEMP 97.1
[2020-07-28 10:35] VITALS: BP 102/66; O2SAT 99
== END 2020-07-25 02:18 | disposition home or self-care (01) ==
LOC: ER 21:48
DX: T40.1X1A Poisoning by heroin, accidental (unintentional), initial encounter (principal); F19.10 Other psychoactive substance abuse, uncomplicated; F17.210 Nicotine dependence, cigarettes, uncomplicated
CPT/HCPCS: 36415; 51702; 80048; 80076; 80307; 80320; 80329; 85025; 85610; 85730; 93005; 96360; 99284; J7030

== ENCOUNTER 2020-09-05 15:09 | Emergency (ER) | payer SELFPAY ==
[2020-09-05] MEDS ORDERED: KETOROLAC 30 MG/ML INJ ONE (15:48)
--- NOTE | 2020-09-05 16:51 | RAD REPORT ---
EXAM DESCRIPTION: RAD - Foot Right 3 View - 09/05/2020 3:46 pm CLINICAL HISTORY: PAIN COMPARISON: No comparisons FINDINGS: No fracture, dislocation or periosteal reaction. No acute bone or joint finding identified . No air or foreign body in the soft tissues. IMPRESSION: Negative right foot examination.
--- NOTE | 2020-09-05 16:51 | RAD REPORT ---
EXAM DESCRIPTION: RAD - Foot Left 3 View - 09/05/2020 3:46 pm CLINICAL HISTORY: PAIN COMPARISON: No comparisons FINDINGS: No fracture, dislocation or periosteal reaction. No acute or destructive bony process. No air or foreign body in the soft tissues. IMPRESSION: Negative left foot examination.
--- NOTE | 2020-09-05 17:11 | EDPHYS ---
Physician Documentation [facility] Name: Patti Crawford Age: 24 yrs Sex: Female : 1995 Arrival Date: 09/05/2020 Time: 15:12 Bed 20 Private MD: ED Physician Jose Pacheco HPI: 09/05 15:26 This 24 yrs old Female presents to ER via Wheelchair with complaints of Foot pm1 Injury. 15:26 The patient presents with pain, that is acute. The complaints affect the left Achilles pm1 and left heel, right Achilles and right heel. Context: The problem was sustained outdoors, resulted from Jumped from tall fence and landed flat on both feet, the patient can partially bear weight, the patient is able to ambulate, patient reports that she has to walk on the ball of her feet and toes. Pain with applying weight on heels, Problem is a result from a previous injury: No. Onset: The symptoms/episode began/occurred last night. Modifying factors: the symptoms are aggravated by weight bearing. Associated signs and symptoms: Pertinent negatives calf tenderness, fever, numbness, swelling, tingling. Treatment prior to arrival includes: no previous treatment. Severity of symptoms: in the emergency department the symptoms are unchanged. The patient has not experienced similar symptoms in the past. The patient has not recently seen a physician. Historical: - Allergies: 15:18 No Known Allergies; ll1 - PSHx: 15:18 None; ll1 - Immunization history:: Flu vaccine is up to date. - Social history:: Smoking status: Patient reports the use of cigarette tobacco products, smokes one-half pack cigarettes per day. ROS: 15:26 Constitutional: Negative for fever, chills, and weight loss, Neck: Negative for injury, pm1 pain, and swelling, Cardiovascular: Negative for chest pain, palpitations, and edema, Respiratory: Negative for shortness of breath, cough, wheezing, and pleuritic chest pain, Back: Negative for injury and pain. 15:26 Skin: Negative for injury, rash, and discoloration, Neuro: Negative for headache, weakness, numbness, tingling, and seizure. 15:26 MS/extremity: Positive for pain, of the left heel and right heel. Exam: 15:26 Constitutional: This is a well developed, well nourished patient who is awake, alert, pm1 and in no acute distress. Head/Face: Normocephalic, atraumatic. Neck: Trachea midline, no thyromegaly or masses palpated, and no cervical lymphadenopathy. Supple, full range of motion without nuchal rigidity, or vertebral point tenderness. No Meningismus. Back: No spinal tenderness. No costovertebral tenderness. Full range of motion. Skin: Warm, dry with normal turgor. Normal color with no rashes, no lesions, and no evidence of cellulitis. 15:26 Musculoskeletal/extremity: Extremities: grossly normal except: noted in the right Achilles and left Achilles: tenderness, There is no evidence of decreased ROM, deformity, Joseph test negative bilaterally: Bilaterally calf compression is non-tender and foot plantar flexion elicited. Vital Signs: 15:18 BP 119 / 64; Pulse 110; Resp 17; Temp 98.3; Pulse Ox 100% ; Weight 65.77 kg; Height 5 ll1 ft. 6 in. (167.64 cm); Pain 10/10; 15:18 Body Mass Index 23.40 (65.77 kg, 167.64 cm) ll1 MDM: 15:20 Patient medically screened. pm1 16:56 Data reviewed: vital signs. Data interpreted: Pulse oximetry: on room air is 100 %. pm1 Interpretation: normal. Counseling: I had a detailed discussion with the patient and/or guardian regarding: the historical points, exam findings, and any diagnostic results supporting the discharge/admit diagnosis, radiology results, the need for outpatient follow up, a orthopedic surgeon, to return to the emergency department if symptoms worsen or persist or if there are any questions or concerns that arise at home. 16:56 ED course: Explained to patient that her last ER visit her was due to OD and I cannot pm1 prescribe her narcotics given that the diagnosis is contusion of bilateral heels. Patient understood and I offered her NSAID prescription. 09/05 15:25 Order name: Foot Left 3 View XRAY; Complete Time: 16:56 pm1 09/05 15:25 Order name: Foot Right 3 View XRAY; Complete Time: 16:56 pm1 09/05 15:25 Order name: Ice pack; Complete Time: 15:29 pm1 Administered Medications: 15:31 CANCELLED (Physician Discretion): [place] 10 mg-325 mg 1 tabs PO once; RASS on ADMIN: pm1 Combtv4, Very Agttd3, Agttd2, Rstlss1, AlertClm0, Drwsy-1, Lt Sdtn-2, Mod Sdtn-3, Dp Sdtn-4, UnArsble-5 15:42 Drug: TORadol 60 mg Route: IM; Site: right gluteus; em Disposition: 19:02 Co-signature as Attending Physician, Jose Pacheco MD Did not see or evaluate patient. ps1 Signature for administrative purposes. Available for consultation in ED during the patient encounter. . Disposition: 09/05/20 17:11 Discharged to Home. Impression: Contusion of right foot, Contusion of left foot, Pain in left foot, Pain in right foot. - Condition is Stable. - Discharge Instructions: Foot Contusion, Crutch Use, RICE for Routine Care of Injuries, Foot Pain. - Prescriptions for Naprosyn 500 mg Oral Tablet - take 1 tablet by ORAL route every 12 hours As needed take with food; 30 tablet. - Medication Reconciliation Form, Thank You Letter, Antibiotic Education, Prescription Opioid Use form. - Follow up: Emergency Department; When: As needed; Reason: Worsening of condition. Follow up: Private Physician; When: 2 - 3 days; Reason: Recheck today's complaints, Continuance of care, Re-evaluation by your physician. - Problem is new. - Symptoms have improved. Signatures: Dispatcher [employer] EDMS Garth Lazo, RN RN em Alexandro Mendez, STATIONARY BOILER FIREMAN STATIONARY BOILER FIREMAN pm1 Jose Pacheco MD MD ps1 Karla Horner RN RN ll1 Corrections: (The following items were deleted from the chart) 15:31 15:25 [place] 10 mg-325 mg 1 tabs PO once; RASS on ADMIN: Combtv4, Very Agttd3, Agttd2, pm1 Rstlss1, AlertClm0, Drwsy-1, Lt Sdtn-2, Mod Sdtn-3, Dp Sdtn-4, UnArsble-5 ordered. pm1 17:11 17:11 09/05/2020 17:11 Discharged to Home. Impression: Contusion of right foot; pm1 Contusion of left foot; Pain in left foot; Pain in right foot. Condition is Stable. Forms are Medication Reconciliation Form, Thank You Letter, Antibiotic Education, Prescription Opioid Use. Follow up: Emergency Department; When: As needed; Reason: Worsening of condition. Follow up: Private Physician; When: 2 - 3 days; Reason: Recheck today's complaints, Continuance of care, Re-evaluation by your physician. pm1 17:31 17:11 09/05/2020 17:11 Discharged to Home. Impression: Contusion of right foot; em Contusion of left foot; Pain in left foot; Pain in right foot. Condition is Stable. Forms are Medication Reconciliation Form, Thank You Letter, Antibiotic Education, Prescription Opioid Use. Follow up: Emergency Department; When: As needed; Reason: Worsening of condition. Follow up: Private Physician; When: 2 - 3 days; Reason: Recheck today's complaints, Continuance of care, Re-evaluation by your physician. Problem is new. Symptoms have improved. pm1
--- NOTE | 2020-09-05 17:11 | ER ---
Nurse's Notes [facility] Name: Patti Crawford Age: 24 yrs Sex: Female : 1995 Arrival Date: 09/05/2020 Time: 15:12 Bed 20 Private MD: Diagnosis: Contusion of right foot;Contusion of left foot;Pain in left foot;Pain in right foot Presentation: 09/05 15:18 Chief complaint: Patient states: Jumped a tall fence yesterday at 1700. Pain to both ll1 heels and ankles since. Coronavirus screen: Client denies travel out of the [place] in the last 14 days. At this time, the client does not indicate any symptoms associated with coronavirus-19. Ebola Screen: Patient denies travel to an Ebola-affected area in the 21 days before illness onset. Initial Sepsis Screen: Does the patient meet any 2 criteria? HR > 90 bpm. No. Patient's initial sepsis screen is negative. Does the patient have a suspected source of infection? Yes: Bone or joint infection. Risk Assessment: Do you want to hurt yourself or someone else? Patient reports no desire to harm self or others. Onset of symptoms was September 04, 2020. 15:18 Method Of Arrival: Wheelchair ll1 15:18 Acuity: HEYDI 3 ll1 15:22 Chief complaint:. ll1 Historical: - Allergies: 15:18 No Known Allergies; ll1 - PSHx: 15:18 None; ll1 - Immunization history:: Flu vaccine is up to date. - Social history:: Smoking status: Patient reports the use of cigarette tobacco products, smokes one-half pack cigarettes per day. Screenin:38 Abuse screen: Denies threats or abuse. Nutritional screening: No deficits noted. em Tuberculosis screening: No symptoms or risk factors identified. Fall Risk None identified. Assessment: 15:35 General: Appears in no apparent distress. uncomfortable, Behavior is calm, cooperative. em Pain: Complains of pain in left heel and left Achilles and right heel and right Achilles Pain currently is 10 out of 10 on a pain scale. Neuro: Level of Consciousness is awake, alert, obeys commands, Oriented to person, place, time, situation, Appropriate for age. Cardiovascular: Capillary refill < 3 seconds Patient's skin is warm and dry. Respiratory: Airway is patent Respiratory effort is even, unlabored, Respiratory pattern is regular, symmetrical. Derm: Skin is intact, is healthy with good turgor, Skin is pink, warm \T\ dry. Musculoskeletal: Capillary refill < 3 seconds, Range of motion: intact in all extremities. 16:45 Reassessment: Patient appears in no apparent distress at this time. Patient and/or em family updated on plan of care and expected duration. Pain level reassessed. Patient is alert, oriented x 3, equal unlabored respirations, skin warm/dry/pink. Vital Signs: 15:18 BP 119 / 64; Pulse 110; Resp 17; Temp 98.3; Pulse Ox 100% ; Weight 65.77 kg; Height 5 ll1 ft. 6 in. (167.64 cm); Pain 10/10; 15:18 Body Mass Index 23.40 (65.77 kg, 167.64 cm) ll1 ED Course: 15:12 Patient arrived in ED. mr 15:18 Arm band placed on Patient placed in an exam room, on a stretcher. ll1 15:19 Triage completed. ll1 15:20 Alexandro Mendez, KARI is PHCP. pm1 15:20 Jose Pacheco MD is Attending Physician. pm1 15:28 Garth Lazo, ILDA is Primary Nurse. em 15:28 Bed in low position. Call light in reach. Ice pack to injury. Verbal reassurance given. jp3 15:28 Patient maintains SpO2 saturation greater than 95% on room air. jp3 15:39 X-ray(s) taken. jp3 15:47 Foot Left 3 View XRAY In Process Unspecified. EDMS 15:47 Foot Right 3 View XRAY In Process Unspecified. EDMS 16:36 Awaiting radiology results. sv 17:14 No provider procedures requiring assistance completed. Patient did not have IV access em during this emergency room visit. Administered Medications: 15:31 CANCELLED (Physician Discretion): Gilman 10 mg-325 mg 1 tabs PO once; RASS on ADMIN: pm1 Combtv4, Very Agttd3, Agttd2, Rstlss1, AlertClm0, Drwsy-1, Lt Sdtn-2, Mod Sdtn-3, Dp Sdtn-4, UnArsble-5 15:42 Drug: TORadol 60 mg Route: IM; Site: right gluteus; em Outcome: 17:11 Discharge ordered by . pm1 17:30 Discharged to home with crutches, with family. em 17:30 Condition: stable 17:30 Discharge instructions given to left prior to going over discharge paperwork/prescriptions 17:31 Patient left the ED. em Signatures: Dispatcher [employer] Ranjana Trevino RN RN Julia LudwigGarth RN RN em Alexandro Mendez NP BAGMAN/WOMAN pm1 Fab Welch jp3 Karla Horner RN RN ll1 Corrections: (The following items were deleted from the chart) 15: 15:18 Chief complaint: Patient states: Jumped a tall fence yesterday. Pain to left heel ll1 and left ankle since. ll1 15:23 15:18 Coronavirus screen: Client denies travel out of the [place] in the last 14 days. At ll1 this time, the client does not indicate any symptoms associated with coronavirus-19. ll1
[2020-09-05 17:37] VITALS: BP 119/64; TEMP 98.3; O2SAT 100
== END 2020-09-05 17:31 | disposition home or self-care (01) ==
LOC: ER 15:09
DX: S90.32XA Contusion of left foot, initial encounter (principal); S90.31XA Contusion of right foot, initial encounter; M79.671 Pain in right foot; F17.210 Nicotine dependence, cigarettes, uncomplicated; X58.XXXA Exposure to other specified factors, initial encounter; Y93.89 Activity, other specified; Y92.9 Unspecified place or not applicable
CPT/HCPCS: 96372; 99284

== ENCOUNTER 2021-01-31 08:21 | Observation (INO) | payer SELFPAY ==
--- NOTE | 2021-01-31 09:21 | EDPHYS ---
Physician Documentation [facility] Name: Patti Crawford Age: 25 yrs Sex: Female : 1995 Arrival Date: 01/31/2021 Time: 08:26 Bed 17 Private MD: ED Physician Roque Matta HPI: 01/31 09:00 This 25 yrs old Female presents to ER via EMS with complaints of Shortness Of shirlene Breath. 09:00 The patient has shortness of breath at rest, with light activity. Onset: The shirlene symptoms/episode began/occurred 3 day(s) ago. Duration: The symptoms are continuous, and are steadily getting worse. The patient's shortness of breath is aggravated by coughing, supine position, talking, walking. Associated signs and symptoms: Pertinent positives: non-productive cough, dizziness. Severity of symptoms: At their worst the symptoms were moderate this morning, today, in the emergency department the symptoms have improved mildly. The patient has experienced similar episodes in the past, several times. 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 - Social history:: Smoking status: Patient reports the use of cigarette tobacco products, smokes one pack cigarettes per day. Patient uses IV drugs, amphetamines. - Family history:: not pertinent. ROS: 09:00 Constitutional: Negative for fever, chills, and weight loss, Eyes: Negative for injury, shirlene pain, redness, and discharge, ENT: Negative for injury, pain, and discharge, Neck: Negative for injury, pain, and swelling, Abdomen/GI: Negative for abdominal pain, nausea, vomiting, diarrhea, and constipation, Back: Negative for injury and pain, : Negative for injury, bleeding, discharge, and swelling, MS/Extremity: Negative for injury and deformity, Skin: Negative for injury, rash, and discoloration, Neuro: Negative for headache, weakness, numbness, tingling, and seizure, Psych: Negative for depression, anxiety, suicide ideation, homicidal ideation, and hallucinations, Allergy/Immunology: Negative for hives, rash, and allergies, Endocrine: Negative for neck swelling, polydipsia, polyuria, polyphagia, and marked weight changes, Hematologic/Lymphatic: Negative for swollen nodes, abnormal bleeding, and unusual bruising. 09:00 Cardiovascular: Positive for chest pain, orthopnea. 09:00 Respiratory: Positive for cough, shortness of breath, wheezing, inspiratory, expiratory. Exam: 09:10 Constitutional: This is a well developed, well nourished patient who is awake, alert, shirlene and in no acute distress. Head/Face: Normocephalic, atraumatic. Eyes: Pupils equal round and reactive to light, extra-ocular motions intact. Lids and lashes normal. Conjunctiva and sclera are non-icteric and not injected. Cornea within normal limits. Periorbital areas with no swelling, redness, or edema. ENT: Nares patent. No nasal discharge, no septal abnormalities noted. Tympanic membranes are normal and external auditory canals are clear. Oropharynx with no redness, swelling, or masses, exudates, or evidence of obstruction, uvula midline. Mucous membranes moist. Neck: Trachea midline, no thyromegaly or masses palpated, and no cervical lymphadenopathy. Supple, full range of motion without nuchal rigidity, or vertebral point tenderness. No Meningismus. Chest/axilla: Normal chest wall appearance and motion. Nontender with no deformity. No lesions are appreciated. Abdomen/GI: Soft, non-tender, with normal bowel sounds. No distension or tympany. No guarding or rebound. No evidence of tenderness throughout. Back: No spinal tenderness. No costovertebral tenderness. Full range of motion. Skin: Warm, dry with normal turgor. Normal color with no rashes, no lesions, and no evidence of cellulitis. MS/ Extremity: Pulses equal, no cyanosis. Neurovascular intact. Full, normal range of motion. Neuro: Awake and alert, GCS 15, oriented to person, place, time, and situation. Cranial nerves II-XII grossly intact. Motor strength 5/5 in all extremities. Sensory grossly intact. Cerebellar exam normal. Normal gait. Psych: Awake, alert, with orientation to person, place and time. Behavior, mood, and affect are within normal limits. 09:10 Cardiovascular: Rate: tachycardic, Rhythm: regular, Pulses: Pulses are 4+ in bilateral radial, brachial, femoral, popliteal, posterior tibial and and dorsalis pedis arteries.. Heart sounds: normal, normal S1and S2, no S3 or S4, no murmur, no rub, no gallop, Edema: is not appreciated, JVD: is not appreciated. 09:10 ECG was reviewed by the Attending Physician. 09:10 Respiratory: mild respiratory distress is noted, Respirations: labored breathing, that is mild, Breath sounds: bronchial sounds, that are mild, rhonchi, that are mild, wheezing: inspiratory expiratory that is moderate, Respiratory rate: 26 Vital Signs: 08:38 BP 131 / 90; Pulse 135; Resp 24; Temp 99.6(O); Pulse Ox 97% on R/A; Weight 54.43 kg; ss Height 5 ft. 5 in. (165.10 cm); Pain 9/10; 08:38 BP 137 / 83; Pulse 125; Resp 22; ss 10:30 BP 136 / 80; Pulse 115; Resp 18; Pulse Ox 98% on R/A; bw 12:30 BP 129 / 84; Pulse 107; Resp 18; Pulse Ox 97% on R/A; bw 14:26 BP 131 / 76; Pulse 100; Resp 16; Pulse Ox 100% on R/A; bw 16:30 BP 128 / 74; Pulse 101; Resp 20; Pulse Ox 99% on R/A; bw 17:30 BP 126 / 78; Pulse 103; Resp 20; Pulse Ox 97% on R/A; bw 08:38 Body Mass Index 19.97 (54.43 kg, 165.10 cm) MDM: 08:28 Patient medically screened. shirlene 09:12 Differential diagnosis: Anemia Anxiety Reaction CHF exacerbation, Chronic Obstructive shirlene Pulmonary Disease pneumonia, Pneumothorax pulmonary edema, Pulmonary Embolism reactive airway disease, Sepsis. Antibiotic administration: Rocephin and Zithromax given. The patient's Wells Deep Vein Thrombosis Score was calculated as follows: Heart Rate >100 BPM (1.5 Pts) Total Score: 0-2 Pts- Low Risk. The patient's pulmonary embolism risk score was calculated as follows: the patients heart rate is greater than 100 beats per minute (1.5 Pts) Total Score: 0-2 points. This patient was found to be at low risk for a pulmonary embolism by using the Well's assessment criteria. Immunization status:. Data reviewed: vital signs, nurses notes, lab test result(s), EKG, radiologic studies, plain films. Data interpreted: satellite project site monitor: rate is 135 beats/min, rhythm is regular, Pulse oximetry: on room air is 87 %. Test interpretation: by ED physician or midlevel provider: ECG, plain radiologic studies. Counseling: I had a detailed discussion with the patient and/or guardian regarding: the historical points, exam findings, and any diagnostic results supporting the discharge/admit diagnosis, lab results, radiology results, the need for further work-up and treatment in the hospital. 01/31 08:56 Order name: Basic Metabolic Panel [facility] 01/31 08:56 Order name: CBC with Diff; Complete Time: 10:01 [facility] 01/31 08:56 Order name: LFT's [facility] 01/31 08:56 Order name: Magnesium [facility] 01/31 08:56 Order name: NT PRO-BNP [facility] 01/31 08:56 Order name: PT-INR [facility] 01/31 08:56 Order name: Troponin (emerg Dept Use Only) [facility] 01/31 08:56 Order name: Blood Culture Adult (2) [facility] 01/31 08:56 Order name: Lactate [facility] 01/31 08:56 Order name: COVID-19 : Document "Date of Symptom Onset" if Symptomatic. [facility] 01/31 08:56 Order name: Flu [facility] 01/31 11:50 Order name: COVID-19/FLU A+B [facility] 01/31 16:48 Order name: Urine Dipstick--Ancillary (enter results) 01/31 16:52 Order name: Urine Dipstick-Ancillary [facility] 01/31 08:56 Order name: XRAY Chest (1 view); Complete Time: 10:01 [facility] 01/31 08:56 Order name: EKG; Complete Time: 08:57 [facility] 01/31 08:56 Order name: Cardiac monitoring; Complete Time: 09:36 [facility] 01/31 09:56 Order name: Regular; Complete Time: 11:28 [facility] 01/31 08:56 Order name: EKG - Nurse/Tech; Complete Time: 09:36 [facility] 01/31 08:56 Order name: IV Saline Lock; Complete Time: 11:28 [facility] 01/31 08:56 Order name: Labs collected and sent; Complete Time: 11:28 [facility] 01/31 08:56 Order name: O2 Per Protocol; Complete Time: 11:27 [facility] 01/31 08:56 Order name: O2 Sat Monitoring; Complete Time: 11:27 [facility] 01/31 09:15 Order name: Urine Dipstick-Ancillary (obtain specimen); Complete Time: 16:48 [facility] 01/31 09:15 Order name: Urine Test (obtain specimen); Complete Time: 16:48 [facility] EC:10 Rate is 145 beats/min. Rhythm is regular. QRS [place] is Normal. OR interval is normal. [facility] QRS interval is normal. QT interval is normal. No Q waves. T waves are Normal. No ST changes noted. Clinical impression: Sinus tachycardia. Interpreted by me. Reviewed by me. Administered Medications: 11:24 Drug: Decadron - Dexamethasone 10 mg Route: IVP; Site: right antecubital; bw 11:25 Drug: Rocephin 1 grams Route: IV; Rate: per protocol; Site: right antecubital; bw 11:40 Follow up: Response: No adverse reaction; Rate change per protocol; IV Status: bw Completed infusion; IV Intake: 20ml 11:25 Drug: Tylenol 650 mg Route: PO; bw 11:25 Drug: Lovenox 40 mg Route: Sub-Q; Site: right upper abdomen; bw 11:26 Drug: Xopenex 3.75 mg Route: Inhalation; bw 11:26 Drug: AtroVENT Aerosol 0.5 mg Route: Inhalation; bw 11:26 Drug: Pepcid 20 mg Route: IVP; Site: right antecubital; bw 11:27 Drug: NS 0.9% 1000 ml Route: IV; Rate: 1 bolus; Site: right antecubital; bw 12:27 Follow up: Response: No adverse reaction; IV Status: Completed infusion bw 11:27 Drug: SOLU-Medrol 125 mg Route: IVP; Site: right antecubital; bw 13:34 Drug: Magnesium Sulfate 2 grams Route: IVPB; Infused Over: 2 hrs; Site: right bw antecubital; 16:52 Follow up: Response: No adverse reaction bw 14:00 Drug: Zithromax 500 mg Route: IVPB; Infused Over: 1 hrs; Site: right antecubital; bw 16:48 Drug: NS 0.9% 1000 ml Route: IV; Rate: 125 ml/hr; Site: right antecubital; bw 16:52 Follow up: Response: No adverse reaction bw Disposition: 01/31/21 09:20 Hospitalization ordered by Jacquelyn Valentin for Inpatient Admission. Preliminary diagnosis are Dyspnea, Hypoxemia, Asthma, Fever, unspecified. - Bed requested for Telemetry/MedSurg (Inpatient). - Status is Inpatient Admission. ll1 - Condition is Fair. - Problem is new. - Symptoms have improved. Signatures: Dispatcher [employer] EDMS Kriss Johnson Corey, MD MD cha Smirch, Shelby, RN RN ss Karla Horner RN RN 1 Mirtha Brandt RN RN bw Corrections: (The following items were deleted from the chart) 13:29 09:20 Hospitalization Ordered by Jacquelyn Valentin MD for Inpatient Admission. Preliminary ss diagnosis is Dyspnea; Hypoxemia; Asthma; Fever, unspecified. Bed requested for Telemetry/MedSurg (Inpatient). Status is Inpatient Admission. Condition is Fair. Problem is new. Symptoms have improved. [facility] 16:07 13:29 01/31/2021 09:20 Hospitalization Ordered by Jacquelyn Valentin MD for Inpatient bd Admission. Preliminary diagnosis is Dyspnea; Hypoxemia; Asthma; Fever, unspecified. Bed requested for [facility] ER HOLD. Status is Inpatient Admission. Condition is Fair. Problem is new. Symptoms have improved. 18:19 16:07 01/31/2021 09:20 Hospitalization Ordered by Jacquelyn Valentin MD for Inpatient ll1 Admission. Preliminary diagnosis is Dyspnea; Hypoxemia; Asthma; Fever, unspecified. Bed requested for Telemetry/MedSurg (Inpatient). Status is Inpatient Admission. Condition is Fair. Problem is new. Symptoms have improved. bd
--- NOTE | 2021-01-31 09:21 | ER ---
Nurse's Notes [facility] Name: Patti Crawford Age: 25 yrs Sex: Female : 1995 Arrival Date: 01/31/2021 Time: 08:26 Bed 17 Private MD: Diagnosis: Dyspnea;Hypoxemia;Asthma;Fever, unspecified Presentation: 01/31 08:38 Chief complaint: Patient states: difficulty breathing that began 3 days ago. HX of ss bronchitis and asthma. Coronavirus screen: Client denies travel out of the [place] in the last 14 days. Client presents with at least one sign or symptom that may indicate coronavirus-19. Standard/surgical mask placed on the client. Provider contacted for isolation considerations. Ebola Screen: Patient denies exposure to infectious person. Patient denies travel to an Ebola-affected area in the 21 days before illness onset. Initial Sepsis Screen: Does the patient meet any 2 criteria? RR > 20 per min. HR > 90 bpm. Does the patient have a suspected source of infection? No. Patient's initial sepsis screen is negative. Risk Assessment: Do you want to hurt yourself or someone else? Patient reports no desire to harm self or others. Onset of symptoms was January 28, 2021. 08:38 Method Of Arrival: EMS: [facility] 08:38 Acuity: HEYDI 2 ss Triage Assessment: 11:00 Respiratory: the patient has moderate shortness of breath. bw [employer]: 15:05 3, Full Term 3, Premature 0, 0, Living 3, LMP 01/19/2021 bw Historical: - Allergies: 08:40 No Known Allergies; ss - Home Meds: 08:40 None [Active]; ss - PMHx: 08:40 Asthma; Bronchitis; ss - PSHx: 08:40 None; ss - Immunization history:: Adult Immunizations unknown. - Social history:: Smoking status: Patient reports the use of cigarette tobacco products, smokes one pack cigarettes per day. Patient uses IV drugs, amphetamines. - Family history:: not pertinent. Screenin:38 Abuse screen: Denies threats or abuse. Denies injuries from another. Nutritional ss screening: No deficits noted. Tuberculosis screening: Never had TB. Fall Risk None identified. Assessment: 08:38 General: Appears uncomfortable, ill, Behavior is calm, cooperative, Reports feeling ill ss for 2-3 days, Denies fever, chills. Pain: Complains of pain in chest Pain currently is 9 out of 10 on a pain scale. Quality of pain is described as "tight" Pain began 2-3 days ago. Is continuous. Neuro: Level of Consciousness is awake, alert, obeys commands, Oriented to person, place, time, situation, Home Care Attendant are equal bilaterally. Cardiovascular: Capillary refill < 3 seconds is brisk in bilateral fingers. Cardiovascular: Rhythm is sinus tachycardia. Respiratory: Reports shortness of breath at rest on exertion since x 3 days. Worse today labored breathing Airway is patent Respiratory effort is even, labored, Respiratory pattern is regular, Breath sounds with wheezes bilaterally. GI: Patient currently denies abdominal pain, diarrhea, nausea, vomiting. : No signs and/or symptoms were reported regarding the genitourinary system. Denies burning with urination, urinary frequency. EENT: Oral mucosa is moist. Derm: Skin is pink, warm \\T\\ dry. normal. Musculoskeletal: Circulation, motion, and sensation intact. Range of motion: intact in all extremities, Swelling absent. 09:40 Reassessment: Patient appears in no apparent distress at this time. Patient and/or family updated on plan of care and expected duration. Pain level reassessed. Patient is alert, oriented x 3, equal unlabored respirations, skin warm/dry/pink. 10:40 Reassessment: Patient appears in no apparent distress at this time. Patient and/or family updated on plan of care and expected duration. Pain level reassessed. Patient is alert, oriented x 3, equal unlabored respirations, skin warm/dry/pink. 11:40 Reassessment: Patient appears in no apparent distress at this time. No changes from previously documented assessment. Patient and/or family updated on plan of care and expected duration. Pain level reassessed. Patient is alert, oriented x 3, equal unlabored respirations, skin warm/dry/pink. 12:40 Reassessment: Patient appears in no apparent distress at this time. No changes from previously documented assessment. Patient and/or family updated on plan of care and expected duration. Pain level reassessed. Patient is alert, oriented x 3, equal unlabored respirations, skin warm/dry/pink. 13:40 Reassessment: Patient appears in no apparent distress at this time. No changes from bw previously documented assessment. 14:30 Reassessment: receiving breathing treatment at this time. pt sleeping in ED stretcher. bw No s/s of distress noted. Breathing is even and unlabored. Chest rise equal. Still c/o SOB. Will continue to monitor. 15:30 Reassessment: Patient appears in no apparent distress at this time. bw 16:30 Reassessment: Patient is alert, oriented x 3, equal unlabored respirations, skin bw warm/dry/pink. 17:30 Reassessment: Patient appears in no apparent distress at this time. No changes from bw previously documented assessment. Patient and/or family updated on plan of care and expected duration. Pain level reassessed. Patient is alert, oriented x 3, equal unlabored respirations, skin warm/dry/pink. report given to 4th floor. Vital Signs: 08:38 BP 131 / 90; Pulse 135; Resp 24; Temp 99.6(O); Pulse Ox 97% on R/A; Weight 54.43 kg; Height 5 ft. 5 in. (165.10 cm); Pain 9/10; 08:38 BP 137 / 83; Pulse 125; Resp 22; ss 10:30 BP 136 / 80; Pulse 115; Resp 18; Pulse Ox 98% on R/A; bw 12:30 BP 129 / 84; Pulse 107; Resp 18; Pulse Ox 97% on R/A; bw 14:26 BP 131 / 76; Pulse 100; Resp 16; Pulse Ox 100% on R/A; bw 16:30 BP 128 / 74; Pulse 101; Resp 20; Pulse Ox 99% on R/A; bw 17:30 BP 126 / 78; Pulse 103; Resp 20; Pulse Ox 97% on R/A; bw 08:38 Body Mass Index 19.97 (54.43 kg, 165.10 cm) ED Course: 08:26 Patient arrived in ED. ss 08:28 Roque Matta MD is Attending Physician. shirlene 08:38 Patient has correct armband on for positive identification. Bed in low position. Call light in reach. cafeteria monitor on. Pulse ox on. NIBP on. 08:38 Patient maintains SpO2 saturation greater than 95% on room air. ss 08:40 Triage completed. ss 08:40 Arm band placed on right wrist. ss 08:58 Brandt, Mirtha, ILDA is Primary Nurse. bw 09:17 XRAY Chest (1 view) In Process Unspecified. EDMS 09:17 Jacquelyn Valentin MD is Hospitalizing Provider. [facility] 09:37 EKG done, by ED staff, reviewed by Roque Matta MD. 5 10:45 Inserted saline lock: 20 gauge in right antecubital area, using aseptic technique. bw 14:24 No provider procedures requiring assistance completed. bw 15:03 Patient admitted, IV remains in place. bw 18:20 Urine Dipstick--Ancillary (enter results) Sent. bw Administered Medications: 11:24 Drug: Decadron - Dexamethasone 10 mg Route: IVP; Site: right antecubital; bw 11:25 Drug: Rocephin 1 grams Route: IV; Rate: per protocol; Site: right antecubital; bw 11:40 Follow up: Response: No adverse reaction; Rate change per protocol; IV Status: bw Completed infusion; IV Intake: 20ml 11:25 Drug: Tylenol 650 mg Route: PO; bw 11:25 Drug: Lovenox 40 mg Route: Sub-Q; Site: right upper abdomen; bw 11:26 Drug: Xopenex 3.75 mg Route: Inhalation; bw 11:26 Drug: AtroVENT Aerosol 0.5 mg Route: Inhalation; bw 11:26 Drug: Pepcid 20 mg Route: IVP; Site: right antecubital; bw 11:27 Drug: NS 0.9% 1000 ml Route: IV; Rate: 1 bolus; Site: right antecubital; bw 12:27 Follow up: Response: No adverse reaction; IV Status: Completed infusion bw 11:27 Drug: SOLU-Medrol 125 mg Route: IVP; Site: right antecubital; bw 13:34 Drug: Magnesium Sulfate 2 grams Route: IVPB; Infused Over: 2 hrs; Site: right bw antecubital; 16:52 Follow up: Response: No adverse reaction bw 14:00 Drug: Zithromax 500 mg Route: IVPB; Infused Over: 1 hrs; Site: right antecubital; bw 16:48 Drug: NS 0.9% 1000 ml Route: IV; Rate: 125 ml/hr; Site: right antecubital; bw 16:52 Follow up: Response: No adverse reaction bw Intake: 11:40 IV: 20ml; Total: 20ml. bw Outcome: 09:20 Decision to Hospitalize by Provider. shirlene 17:30 Admitted to Med/surg 17:30 Condition: stable 17:30 Instructed on the need for admit. 18:19 Patient left the ED. ll1 Signatures: Dispatcher [employer] EDRoque Mckinney MD MD cha Smirch, Shelby, Jeanna Armenta RN, Lynsay, RN RN [facility] Mirtha Brandt RN RN
[2021-01-31 09:47] LABS: Absolute Lymphocytes (CBC) 2.3 K/uL (0.7-4.9); Basophils % 0.3 % (0-1.3); Hematocrit 43.2 % (36.0-45.0); Lymphocytes % 14.4 % (15.3-44.8); MPV 8.2 fL (7.6-11.3); RBC Red Blood Cell Count 4.77 M/uL (3.86-4.86)
[2021-01-31] MEDS ORDERED: ACETAMINOPHEN 500 MG TAB PO PRN (09:53)
--- NOTE | 2021-01-31 09:59 | RAD REPORT ---
EXAM DESCRIPTION: RAD - Chest Single View - 01/31/2021 9:18 am CLINICAL HISTORY: Cough;Dyspnea COMPARISON: July 2019 TECHNIQUE: AP portable chest image was obtained 01/31/2021 9:18 am . FINDINGS: No acute lung parenchymal process identifiable. Bilateral nipple shadows are in place. Sma ll nodular focus right lung base detailed 2019 is either stable or absent on the current examination. No worrisome lung parenchymal process. Merari are stable in appearance. Heart and vasculature are normal. No measurable pleural effusion and n o pneumothorax. No acute bony abnormality seen. No acute aortic findings suspected. IMPRESSION: No acute cardiopulmonary process. No significant change from comparison study.
[2021-01-31] MEDS: IPRATROPIUM BROM 0.5MG/2.5ML NEB SCH ×3 (10:00→19:50)
[2021-01-31] MEDS ORDERED: ALBUTEROL 2.5 MG/3 ML NEB SOL NEB SCH (10:00)
[2021-01-31] MEDS: NA CHLORIDE 0.9% 1,000 ML IV SCH ×2 (10:00→23:20)
[2021-01-31 10:03] LABS: Protime INR 1.28
[2021-01-31 10:07] LABS: ALT/SGPT 68 U/L (12-78); AST/SGOT 167 U/L (15-37); Albumin 3.8 g/dL (3.4-5.0); Alkaline Phosphatase 116 U/L (45-117); BUN Blood Urea Nitrogen 18 mg/dL (7-18); Bicarbonate 28 mmol/L (21-32); Bilirubin Direct 0.2 mg/dL (0-0.2); Bilirubin Total 0.7 mg/dL (0.2-1.0); Glucose Level 74 mg/dL (74-106); NT PRO-BNP 48 pg/mL (<125); Potassium 3.9 mmol/L (3.5-5.1); Protein, Total 8.2 g/dL (6.4-8.2); Sodium Level 139 mmol/L (136-145); Troponin (Emerg Dept Use Only) < 0.02 ng/mL (0.0-0.045)
[2021-01-31] MEDS ORDERED: METHYLPREDNISOLONE 125 MG INJ ONE (11:01)
[2021-01-31] MEDS ORDERED: dexAMETHasone 10 MG/ML VIAL ONE (11:01)
[2021-01-31] MEDS ORDERED: ACETAMINOPHEN 325 MG TABLET ONE (11:01)
[2021-01-31] MEDS ORDERED: NA CHLORIDE 0.9% 250 ML ONE (11:02)
[2021-01-31] MEDS ORDERED: AZITHROMYCIN 500 MG INJ IVPB ONE (11:02)
[2021-01-31] MEDS ORDERED: IPRATROPIUM BROM 0.5MG/2.5ML ONE ×2 (11:02→14:38)
[2021-01-31] MEDS ORDERED: LEVALBUTEROL 1.25 MG/3 ML NEB ONE (11:02)
[2021-01-31] MEDS ORDERED: ENOXAPARIN 40 MG/0.4 ML SQ ONE (11:03)
[2021-01-31] MEDS ORDERED: MAGNESIUM SULFATE 1 gm IVPB 2 GM/200 ML BAG IV ONE (11:03)
[2021-01-31] MEDS ORDERED: FAMOTIDINE 20 MG/2 ML VIAL IV ONE ×2 (11:03→11:15)
[2021-01-31] MEDS ORDERED: NA CHLORIDE 0.9% 2,000 ML ONE (11:04)
[2021-01-31] MEDS ORDERED: CEFTRIAXONE/SWI 1gm 1 GM/10 ML SYR ONE (11:04)
[2021-01-31 11:50] LABS: SARS-COV-2 RT PCR NEGATIVE (NEGATIVE)
[2021-01-31] MEDS: METHYLPREDNISOLONE 125 MG INJ IV SCH ×3 (12:00→23:34)
[2021-01-31] MEDS ORDERED: ALBUTEROL 2.5 MG/3 ML NEB SOL ONE (14:38)
[2021-01-31 16:52] LABS: Urine Blood NEGATIVE (NEG); Urine Glucose 1+ (NEG); Urine Protein NEGATIVE (NEG); Urine Specific Gravity >1.030 (1.005-1.030); Urine pH 5.5 (5.0-7.0)
[2021-01-31] MEDS ORDERED: POTASSIUM CL SA 10 MEQ TAB PO ONE (18:00)
[2021-01-31 18:48] VITALS: O2SAT 97
[2021-01-31] MEDS ORDERED: INFLUENZA VACCINE (for 3y+) 0.5 ML DOSE IMVAC ONE (19:00)
[2021-01-31] MEDS ORDERED: PNEUMOCOCCAL VACCINE 0.5 ML IMVAC ONE (19:00)
[2021-01-31] MEDS: ALBUTEROL 2.5 MG/3 ML NEB SOL NEB SCH (19:50)
[2021-01-31] MEDS ORDERED: CEFTRIAXONE/SWI 1gm 1 GM/10 ML SYR IV SCH (21:00)
[2021-01-31] MEDS ORDERED: CEFTRIAXONE 1 GM/NS 50 ML 1 GM/50 ML BAG IV SCH (21:00)
[2021-01-31] MEDS ORDERED: MELATONIN 5 MG TABLET PO ONE (21:30)
[2021-01-31] MEDS ORDERED: LORAZEPAM 0.5 MG TABLET PO ONE (23:59)
[2021-02-01 00:28] VITALS: BP 121/61; TEMP 98.3
[2021-02-01] MEDS: ALBUTEROL 2.5 MG/3 ML NEB SOL NEB SCH (01:43)
[2021-02-01] MEDS: IPRATROPIUM BROM 0.5MG/2.5ML NEB SCH (01:43)
--- NOTE | 2021-02-01 02:43 | P.PN ---
Date of Service: 02/01/21 Was called to the floor because Ms. Crawford would like to leave AMA. She reports that her mother fell and is stubborn and she needs to go home to check on her. Explained to patient benefits of staying (antibiotics, steroids, round the clock monitoring) and risks of leaving (tachycardia and wheezes, worsening condition, out of pocket costs). Patient verbalized that she understood risks/benefits but needs to go home to her mother. Patient has capacity to make this decision. Explained to patient to return to ED if condition worsens. Patient is breathing well on room air. Patient is tachycardic with wheezes in the lower lobes. Patient provided with AMA form to sign.
--- NOTE | 2021-02-01 07:44 | P.HP ---
Certification for Inpatient Patient admitted to: Observation With expected LOS: <2 Midnights Patient will require the following post-hospital care: None Practitioner: I am a practitioner with admitting privileges, knowledge of patient current condition, hospital course, and medical plan of care. Services: Services provided to patient in accordance with Admission requirements found in Title 42 Section 412.3 of the Code of Federal Regulations Patient History Date of Service: 01/31/21 Reason for admission: Asthma exacerbation History of Present Illness: Patient is a 25-year-old female came to the hospital with shortness of breath. She says she has been coughing and congested for the last few days. Her symptoms have been progressively worsening. She came to the emergency room for further evaluation. In the ER she was tachypneic and tachycardic. She was started on neb treatments and IV steroids. Her symptoms have improved. However she still tachycardic and she will be admitted to the hospital for further evaluation. Allergies No Known Drug Allergies Allergy (Verified 01/17/19 08:09) Unknown Home Medications: NK [No Home Meds] 01/31/21 - Past Medical/Surgical History Has patient received pneumonia vaccine in the past: No Diabetic: No -: intestinal infection (approximately a week ago.) -: bronchitis - Family History Mother Notes: patient states no medical history Father Notes: patient states no medical history - Social History Smoking Status: Former smoker Alcohol use: Yes CD- Drugs: No Caffeine use: Yes Place of Residence: Home Review of Systems 10-point ROS is otherwise unremarkable Physical Examination - Vital Signs Temperature: 98.3 F Blood Pressure: 121/61 Pulse: 91 Respirations: 18 Pulse Ox (%): 95 - Physical Exam General: Alert, In no apparent distress, Oriented x3 HEENT: Atraumatic, PERRLA, Mucous membr. moist/pink, EOMI, Sclerae nonicteric Neck: Supple, 2+ carotid pulse no bruit, No LAD, Without JVD or thyroid abnormality Respiratory: Expiratory wheezes Cardiovascular: Regular rate/rhythm, Normal S1 S2, No murmurs Gastrointestinal: Normal bowel sounds, Soft and benign, Non-distended, No tenderness Musculoskeletal: No tenderness Integumentary: No rashes Neurological: Normal gait, Normal speech, Normal strength at 5/5 x4 extr, Normal tone, Sensation intact, Cranial nerves 3-12 intact, Normal affect Lymphatics: No axilla or inguinal lymphadenopathy - Studies Laboratory Data (last 24 hrs) 01/31/21 09:30: PT 14.7 H, INR 1.28 01/31/21 09:30: WBC 15.90 H, Hgb 14.5, Hct 43.2, Plt Count 359 01/31/21 09:30: Sodium 139, Potassium 3.9, BUN 18, Creatinine 0.71, Glucose 74, Magnesium 2.0, Total Bilirubin 0.7, AST 167 H, ALT 68, Alkaline Phosphatase 116 Assessment & Plan - Problems (Diagnosis) (1) Acute asthma exacerbation Status: Acute - Plan Plan: 1. Continue with albuterol and Atrovent nebs 2. Continue with IV steroids 3. Outpatient pulmonary function testing 4. Pulmonary follow-up if symptoms do not improve 5. Room air O2 sats 6. Repeat chest x-ray in the morning 7. Peak flows as needed 8. GI and DVT prophylaxis Discharge Plan: Home Plan to discharge in: 24 Hours - Advance Directives Does patient have a Living Will: No Does patient have a Durable POA for Healthcare: No - Code Status/Comfort Care Code Status Assessed: Yes Code Status: Full Code Critical Care: No Time Spent Managing PTS Care (In Minutes): 45
--- NOTE | 2021-02-01 07:54 | P.DS ---
Discharge Date: 02/01/21 Disposition: AMA-LEFT AGAINST MEDICAL ADVIC Discharge Condition: FAIR Reason for Admission: Asthma exacerbation - Problems (1) Acute asthma exacerbation Status: Acute Brief History of Present Illness: Patient is a 25-year-old female came to the hospital with shortness of breath. She says she has been coughing and congested for the last few days. Her symptoms have been progressively worsening. She came to the emergency room for further evaluation. In the ER she was tachypneic and tachycardic. She was started on neb treatments and IV steroids. Her symptoms have improved. However she still tachycardic and she will be admitted to the hospital for further evaluation. Hospital Course: Patient doing well with no complaints. Patient left against medical advise. Vital Signs/Physical Exam: Temp Pulse Resp BP Pulse Ox 98.3 F 91 H 18 121/61 95 02/01/21 07:44 02/01/21 07:44 02/01/21 07:44 02/01/21 07:44 02/01/21 07:44 General: Alert, In no apparent distress, Oriented x3 Laboratory Data at Discharge: WBC 15.90 K/uL (4.3-10.9) H 01/31/21 09:30 Hgb 14.5 g/dL (12.0-15.0) 01/31/21 09:30 Hct 43.2 % (36.0-45.0) 01/31/21 09:30 Plt Count 359 K/uL (152-406) 01/31/21 09:30 PT 14.7 SECONDS (9.5-12.5) H 01/31/21 09:30 INR 1.28 01/31/21 09:30 Sodium 139 mmol/L (136-145) 01/31/21 09:30 Potassium 3.9 mmol/L (3.5-5.1) 01/31/21 09:30 BUN 18 mg/dL (7-18) 01/31/21 09:30 Creatinine 0.71 mg/dL (0.55-1.3) 01/31/21 09:30 Glucose 74 mg/dL (74-106) 01/31/21 09:30 Magnesium 2.0 mg/dL (1.8-2.4) 01/31/21 09:30 Total Bilirubin 0.7 mg/dL (0.2-1.0) 01/31/21 09:30 AST 167 U/L (15-37) H 01/31/21 09:30 ALT 68 U/L (12-78) 01/31/21 09:30 Alkaline Phosphatase 116 U/L (45-117) 01/31/21 09:30 Home Medications: Albuterol Inhaler [Ventolin Inhaler*] 2 puff IH Q6H PRN #1 hfa.aer.ad 02/01/21 Methylprednisolone [Medrol dosepack] 4 mg PO DIRECTED #1 brandi 02/01/21 New Medications: Methylprednisolone [Medrol dosepack] 4 mg PO DIRECTED #1 brandi Albuterol Inhaler [Ventolin Inhaler*] 2 puff IH Q6H PRN #1 hfa.aer.ad PRN Reason: Shortness Of Breath Diet: Regular Followup: NONE,NONE [Primary Care Provider] - Time spent managing pt's care (in minutes): 35
[2021-02-01] MEDS ORDERED: ENOXAPARIN 40 MG/0.4 ML SQ SCH (09:00)
== END 2021-02-01 02:45 | disposition left against medical advice (07) ==
LOC: ER 08:21 → ERHOLD 09:53 → 4TH 17:53
PROVIDERS: ADMIT Hospitalist; ATTEND Hospitalist
DX: J45.901 Unspecified asthma with (acute) exacerbation (principal); Z20.822 Contact with and (suspected) exposure to COVID-19; Z87.891 Personal history of nicotine dependence; Z53.29 Procedure and treatment not carried out because of patient's decision for other reasons
CPT/HCPCS: 0240U; 36415; 71045; 80048; 80076; 81003; 83605; 83735; 83880; 84484; 85025; 85610; 87040; 93005; 94640; 94760; 96361; 96372; 96374; 96375; 99285; G0378; J0456; J0696; J1100; J1650; J2930; J3475; J7030; J7050